=== PATIENT | female | born 1985 | race Two or more races ===

== ENCOUNTER 2025-01-18 22:24 | Inpatient (IN) | payer MEDICAID, OTHER ==
[~2025-01-18] VITALS: Ht 160 cm; Wt 69.6 kg
--- NOTE | 2025-01-18 22:49 | ED.PDOC ---
History of Present Illness HPI Comments This is a 3-year-old, obese female that is brought in by mm for complaint of shortness a breath in chest pain, today. Per EMS report, patient endorses on sudden an unprovoked onset of symptoms 30-40 minutes prior to ED arrival, while taking a shower. She was noted to have been found, initially, heart rate in the 130s on scene in addition to reporting recent hospital discharge on 01/14/2025. Patient admits to a medical history of recent CHF diagnosis with Lasix placement, unspecified "blood clot in [her] heart" with Eliquis placement, current abscess "lump" to right-side of abdomen with antibiotics placement, and anxiety. At time of initial assessment, patient reports additional complaint of bilateral leg swelling amidst medication compliancy and denies any current palpitations, cough, congestion, fever, chills, nausea, vomiting, or other associated symptoms or modifiers at this time. Chief Complaint: Shortness of Breath Time Seen by MD: 22:30 Reviewed Notes: Nurses Notes, Feed Miller Notes, Medications, Allergies Allergies: Coded Allergies: NO KNOWN ALLERGIES (Unverified , 01/18/25) Information Source: Patient, Emergency Med Personnel Mode of Arrival: EMS Severity: Moderate Timing: Minutes Duration: Since onset Prehospital treatment: 12 Lead EKG, Sprayer Insecticide Past Medical History PAST MEDICAL HISTORY: Anxiety, CHF (on Lasix) Past Medical History (Other): obesity, current abscess "lump" to right-side of abdomen - on antibiotics unspecified "blood clot in heart" - on Eliquis Surgical History: Denies all surgeries 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 Hx Family History Family History: Unknown Social History Smoker: Non-Smoker Alcohol: Denies ETOH Use Drugs: Denies Drug Use Lives In: Home All Other Systems: Reviewed and Negative (Comprehensive systems review obtained and negative except for what is stated in the HPI.) Physical Exam General Appearance: No Apparent Distress, Obese HEENT: Normal ENT Inspection, Pharynx Normal, TMs Normal Neck: Full Range of Motion, Non-Tender, Normal, Normal Inspection Respiratory: Chest Non-Tender, Lungs Clear, No Accessory Muscle Use, No Respiratory Distress, Normal Breath Sounds Cardiovascular: No Edema, No JVD, No Murmur, No Gallop, Normal Peripheral Pulses, Regular Rate/Rhythm Breast Exam: Deferred Gastrointestinal: No Organomegaly, Non Tender, No Pulsatile Mass, Normal Bowel Sounds, Soft Genitalia: Deferred Pelvic: Deferred Rectal: Deferred Extremities: Leg edema (1+ pitting edema to bilateral lower extremities ), No calf tenderness, Normal capillary refill, Normal range of motion, Non-tender Musculoskeletal : Apperance: Normal Neurologic: Alert, roaster operator II-XII nml as Tested, No Motor Deficits, Normal Affect, Normal Mood, No Sensory Deficits Cerebellar Function: Normal Reflexes: Normal Skin: Dry, Normal Color, Warm Lymphatic: No Adenopathy Was a procedure done? Was a procedure done?: No EKG EKG : Pulse Rate (adult): 117 [place]: Normal Cardiac Rhythm: ST Block: None Hypertrophy: None ST: Normal Differential Dx Considerations may include: Anxiety, panic attack, URI, viral syndrome, pneumonia, TN, PT, CHF exacerbation X-Ray, Labs, Meds, VS Vital Signs Date Time Temp Pulse Resp B/P (MAP) Pulse Ox O2 Delivery O2 Flow Rate FiO2 01/18/25 22:49 117 01/18/25 22:33 97.8 112 20 143/82 (102) 98 01/18/25 22:28 117 Lab Test 01/18/25 22:41 Range/Units White Blood Count 11.4 H 4.4-10.8 10^3/uL Red Blood Count 3.93 L 4.0-5.20 10^6/uL Hemoglobin 9.4 L 12.2-16.2 g/dL Hematocrit 30.5 L 36.0-46.0 % Mean Corpuscular Volume 77.7 L 80.0-100.0 fL Mean Corpuscular Hemoglobin 24.0 L 28.0-32.0 pg Mean Corpuscular Hemoglobin Concent 30.9 L 32.0-36.0 g/dL Red Cell Distribution Width 22.1 H 11.8-14.3 % Platelet Count 394 140-450 10^3/uL Mean Platelet Volume 8.4 6.9-10.8 fL Neutrophils (%) (Auto) 76.4 37.0-80.0 % Lymphocytes (%) (Auto) 12.9 10.0-50.0 % Monocytes (%) (Auto) 5.0 0.0-12.0 % Eosinophils (%) (Auto) 4.9 0.0-7.0 % Basophils (%) (Auto) 0.8 0.0-2.0 % Neutrophils # (Auto) 8.7 H 1.6-8.6 10 ^3/uL Lymphocytes # (Auto) 1.5 0.4-5.4 10 ^3/uL Monocytes # (Auto) 0.6 0-1.3 10 ^3/uL Eosinophils # (Auto) 0.6 0-0.8 10 ^3/uL Basophils # (Auto) 0.1 0-0.2 10 ^3/uL Nucleated Red Blood Cells 0.2 % Sodium Level 134 L 136-145 mmol/L Potassium Level 5.1 3.5-5.1 mmol/L Chloride Level 102 98-107 mmol/L Carbon Dioxide Level 24 20-31 mmol/L Anion Gap 8 5-15 Blood Urea Nitrogen 30 H 9-23 mg/dL Creatinine 1.02 0.550-1.02 mg/dL Glomerular Filtration Rate Calc 71 >90 mL/min BUN/Creatinine Ratio 29.4 H 10.0-20.0 Serum Glucose 118 H 74-106 mg/dL Calcium Level 9.1 8.7-10.4 mg/dL Troponin I High Sensitivity 157 *H </=34 ng/L B-Type Natriuretic Peptide Pending Time of 1ST Reevaluation: 23:00 Reevaluation 1ST: Unchanged Patient Education/Counseling: Diagnosis, Treatment Family Education/Counseling: No Family Present Additional Information The following tests were ordered, and results were reviewed by me: Troponin, EKG, CXR, CBC, BMP, BNP Additional Information was gathered from interviewing the following independent historians: EMS I reviewed and agreed with the following test results read by other providers: CXR I discussed treatment and results with medical personnel and: patient Departure 1 Departure Time of Disposition: 23:36 (Patient presented with chest pain that was concerning for possible STEMI, ACS, PE, Pneumonia, Muscle Strain, COPD, Dissection. Data: 1. I ordered and reviewed the result of at least 3 labs including a CBC, BMP, and Troponin. 2. I independently interpreted the following tests: EKG which shows _ I saw the via and Chest X-ray which shows cardiomegaly _.Risk:This patient has a high risk of morbidity due to further diagnostic testing or treatment and may suffer from an acute cardiac or respiratory disorder. Workup reveals concern for ACS and CHF exacerbation and patient should be admitted for further workup and possible expert consultation. ) Impression: Primary Impression: Acute chest pain Additional Impressions: Shortness of breath Acute on chronic systolic (congestive) heart failure Disposition: 09 ADMITTED INPATIENT Admit to: Med Surg Condition: Serious Critical Care Note Critical Care Time?: Yes Critical care comment: Acute chest pain Authorized and Performed by: Betty Alcantar MD Total critical care time: Approximately 32 minutes Due to a high probability of clinically significant, life threatening deterioration, the patient required my highest level of preparedness to intervene emergently and I personally spent this critical care time directly and personally managing the patient. This critical care time included obtaining a history; examining the patient; pulse oximetry; ordering and review of studies; arranging urgent treatment with development of a management plan; evaluation of patient's response to treatment; frequent reassessment; and, discussions with other providers. This critical care time was performed to assess and manage the high probability of imminent, life-threatening deterioration that could result in multi-organ failure. It was exclusive of separately billable procedures and treating other patients and teaching time. Please see my other sections and the rest of the note for further information on patient assessment and treatment. Stability Stability form required: No Heart Score Heart Score: Heart Score Response (Comments) Value History Moderate Suspicious 1 EKG Repolarization Disturb 1 Age <45 0 Risk Factors 1 or 2 risk factors 1 Troponin >3 x's Normal limit 2 Total 5 I personally scribed for BETTY ALCANTAR MD ([email or web address]) on 01/18/25 at 22:49. Electronically submitted by Gray Caba ([email or web address]). BETTY ALCANTAR MD Jan 18, 2025 22:49
[2025-01-18 23:04] LABS: Chloride 102 mmol/L (98-107); Eosinophils # (auto) 0.6 10 ^3/uL (0-0.8); Lymphocytes # (auto) 1.5 10 ^3/uL (0.4-5.4); Nucleated Red Blood Cells % 0.2 %; Platelet Count (auto) 394 10^3/uL (140-450); Potassium 5.1 mmol/L (3.5-5.1)
[2025-01-18 23:05] LABS: Anion Gap 8 (5-15); Calcium 9.1 mg/dL (8.7-10.4); Carbon Dioxide 24 mmol/L (20-31)
[2025-01-18 23:06] LABS: Basophils # (auto) 0.1 10 ^3/uL (0-0.2); Basophils % (auto) 0.8 % (0.0-2.0); Eosinophils % (auto) 4.9 % (0.0-7.0); Hematocrit 30.5 % (36.0-46.0); Hemoglobin 9.4 g/dL (12.2-16.2); Lymphocytes % (auto) 12.9 % (10.0-50.0); Mean Corpuscular Hgb Conc. 30.9 g/dL (32.0-36.0); Mean Corpuscular Volume 77.7 fL (80.0-100.0); Monocytes # (auto) 0.6 10 ^3/uL (0-1.3); Neutrophils # (auto) 8.7 10 ^3/uL (1.6-8.6); Neutrophils % (auto) 76.4 % (37.0-80.0); Red Blood Cells 3.93 10^6/uL (4.0-5.20); White Blood Cell 11.4 10^3/uL (4.4-10.8)
[2025-01-18 23:10] LABS: BUN/Creatinine Ratio 29.4 (10.0-20.0)
[2025-01-18 23:12] LABS: Blood Urea Nitrogen 30 mg/dL (9-23); Glucose 118 mg/dL (74-106); Sodium 134 mmol/L (136-145)
[2025-01-18 23:13] LABS: Red Cell Distribution Width 22.1 % (11.8-14.3)
--- NOTE | 2025-01-18 23:23 | DVH ---
CHEST RADIOGRAPH Indication: sob Technique: Single frontal view of the chest was obtained COMPARISON: None FINDINGS: Lines and Tubes: None Lungs: Clear Pleura: No effusion. No pneumothorax. Cardiomediastinal contours: Moderate cardiomegaly. Bones: Unremarkable IMPRESSION: Moderate cardiomegaly. No pulmonary edema.
[2025-01-19] MEDS ORDERED: NITROGLYCERIN 0.4 MG SL TAB SL PRN
[2025-01-19] MEDS ORDERED: MORPHINE SULFATE INJ 2 MG/ml SYRG IV PRN
[2025-01-19] MEDS ORDERED: ACETAMINOPHEN 325 MG TAB PO PRN (00:15)
--- NOTE | 2025-01-19 00:34 | DVHHP2 ---
History of Present Illness Reason for Visit: Shortness for breath History of Present Illness 39-year-old female with a history of congestive heart failure presents for evaluation of shortness for breath. Patient reports a two day history of worsening lower extremity swelling, facial swelling and chest pressure. Denies cough or fever. She reports being compliant with her medications. Other acute complaints reported. Past Medical History Hypertension, congestive heart Past Surgical History Denies Family History Noncontributory Smoke: No ALCOHOL: heavy Drugs: None Lives: with Family Review of Systems Review of Systems Review of systems are currently negative otherwise addressed in HPI. Allergies: Coded Allergies: NO KNOWN ALLERGIES (Unverified , 01/18/25) Medications Current Medications Medications Dose Ordered Sig/Hernán Route Start Time Stop Time Status Last Admin Dose Admin Nitroglycerin 0.4 mg Q5MINP PRN SL 01/19/25 00:00 Morphine Sulfate 2 mg Q30M PRN IV 01/19/25 00:00 Spironolactone 25 mg DAILY PO 01/19/25 10:00 UNV Carvedilol 3.125 mg Q12HR PO 01/19/25 10:00 UNV Furosemide 20 mg BIDD IV 01/19/25 06:00 UNV Empaglifozin 10 mg DAILY PO 01/19/25 10:00 UNV Lisinopril 20 mg BID PO 01/19/25 10:00 UNV Ferrous Sulfate 325 mg BIDWM PO 01/19/25 08:00 UNV Aspirin 162 mg DAILY PO 01/19/25 10:00 UNV Atorvastatin Calcium 10 mg HS PO 01/19/25 22:00 UNV Temazepam 15 mg QHSP PRN PO 01/19/25 00:15 UNV Ondansetron HCl 4 mg Q4HP PRN IV 01/19/25 00:15 UNV Acetaminophen 650 mg Q6HP PRN PO 01/19/25 00:15 UNV Exam Vital Signs Vital Signs Date Time Temp Pulse Resp B/P (MAP) Pulse Ox O2 Delivery O2 Flow Rate FiO2 01/18/25 22:49 117 01/18/25 22:33 97.8 20 143/82 (102) 98 Exam Gen: 39-year-old female in mild distress Skin: Warm, dry, normal color and texture, no rash. HEENT: Normocephalic atraumatic, mucous membranes moist and pink. Neck: Cervical and supraclavicular nodes normal without enlargement, trachea is midline, thyroid gland is normal without masses. Pulmonary: Clear to auscultation and percussion bilaterally. Cardiac: Regular rate and rhythm. No murmur Abdomen: Soft, nontender, nondistended, bowel sounds present all 4 quadrants, no guarding, no rigidity, no organomegaly. Extremities: No cyanosis, clubbing, plus two bilateral pedal edema Neuro: Cranial nerves II through XII grossly intact, normal affect and speech, no focal motor deficits. Labs/Xrays ORDERING PHYSICIAN: BETTY ASCENCIO MD PROCEDURE(s): CXRP - CHEST PORTABLE REASON: sob ORDER NUMBER(s): [id number], ACCESSION NUMBER(s): [id number] CHEST RADIOGRAPH Indication: sob Technique: Single frontal view of the chest was obtained COMPARISON: None FINDINGS: Lines and Tubes: None Lungs: Clear Pleura: No effusion. No pneumothorax. Cardiomediastinal contours: Moderate cardiomegaly. Bones: Unremarkable IMPRESSION: Moderate cardiomegaly. No pulmonary edema. Labs Test 01/18/25 23:38 01/18/25 22:41 Range/Units Troponin I High Sensitivity 148 *H </=34 ng/L White Blood Count 11.4 H 4.4-10.8 10^3/uL Red Blood Count 3.93 L 4.0-5.20 10^6/uL Hemoglobin 9.4 L 12.2-16.2 g/dL Hematocrit 30.5 L 36.0-46.0 % Mean Corpuscular Volume 77.7 L 80.0-100.0 fL Mean Corpuscular Hemoglobin 24.0 L 28.0-32.0 pg Mean Corpuscular Hemoglobin Concent 30.9 L 32.0-36.0 g/dL Red Cell Distribution Width 22.1 H 11.8-14.3 % Platelet Count 394 140-450 10^3/uL Mean Platelet Volume 8.4 6.9-10.8 fL Neutrophils (%) (Auto) 76.4 37.0-80.0 % Lymphocytes (%) (Auto) 12.9 10.0-50.0 % Monocytes (%) (Auto) 5.0 0.0-12.0 % Eosinophils (%) (Auto) 4.9 0.0-7.0 % Basophils (%) (Auto) 0.8 0.0-2.0 % Neutrophils # (Auto) 8.7 H 1.6-8.6 10 ^3/uL Lymphocytes # (Auto) 1.5 0.4-5.4 10 ^3/uL Monocytes # (Auto) 0.6 0-1.3 10 ^3/uL Eosinophils # (Auto) 0.6 0-0.8 10 ^3/uL Basophils # (Auto) 0.1 0-0.2 10 ^3/uL Nucleated Red Blood Cells 0.2 % Sodium Level 134 L 136-145 mmol/L Potassium Level 5.1 3.5-5.1 mmol/L Chloride Level 102 98-107 mmol/L Carbon Dioxide Level 24 20-31 mmol/L Anion Gap 8 5-15 Blood Urea Nitrogen 30 H 9-23 mg/dL Creatinine 1.02 0.550-1.02 mg/dL Glomerular Filtration Rate Calc 71 >90 mL/min BUN/Creatinine Ratio 29.4 H 10.0-20.0 Serum Glucose 118 H 74-106 mg/dL Calcium Level 9.1 8.7-10.4 mg/dL B-Type Natriuretic Peptide > 5000.00 0-100 pg/mL Assessment/Plan Assessment/Plan Assessment Acute on chronic congestive heart failure Hypertension Iron-deficiency anemia Plan Admit the patient to telemetry to the hospitalist Cardiology consultation IV Lasix Resume home medications Continue treatment per orders. Plan discussed with: Patient My Orders Orders - RAFIQ CORRAL AGACNP Procedure Category Date Status Time Admit ADMIT 01/18/25 Transmitted 23:59 Nitroglycerin PHA 01/19/25 In Process Sublingual (Ntrostat 00:00 Morphine Sulfate PHA 01/19/25 In Process Injection 00:00 Stat Ekg For Chest DEJUAN 01/18/25 In Process Pain 23:59 Notify Of Changes DEJUAN 01/18/25 In Process From Base 23:59 Bow Maker Custom For DEJUAN 01/18/25 In Process 24 Hours 23:59 Emergency Dysrhythmia DEJUAN 01/18/25 In Process Protocol 23:59 Rhythm Strips Once DEJUAN 01/18/25 In Process Every Shift 23:59 Oxygen By Nasal RT 01/18/25 Transmitted Cannula 23:59 Spironolactone PHA 01/19/25 Logged (Aldactone) 10:00 Carvedilol Tablet PHA 01/19/25 Logged (Coreg Tablet) 10:00 Furosemide Injection PHA 01/19/25 Logged (Lasix Injection) 06:00 Empagliflozin PHA 01/19/25 Logged (Jardiance) 10:00 Lisinopril Tablet PHA 01/19/25 Logged (Zestril Tablet) 10:00 Ferrous Sulfate Tablet PHA 01/19/25 Logged 08:00 Aspirin Tablet PHA 01/19/25 Logged 10:00 Atorvastatin (Lipitor) PHA 01/19/25 Logged 22:00 Basic Metabolic Panel LAB 01/20/25 Verified 04:00 Temazepam (Restoril) PHA 01/19/25 Logged 00:15 Ondansetron Hcl PHA 01/19/25 Logged (Zofran) 00:15 Complete Blood Count LAB 01/20/25 Verified 04:00 Cardiac DIET 01/19/25 Transmitted Diet-2gna,Lofat,Lochol Breakfast Echo 2d Mode Cardiac US 01/19/25 Logged DOP 00:07 Condition: Fair DEJUAN 01/19/25 In Process 00:07 Acetaminophen Tablet PHA 01/19/25 Logged (Tylenol Tablet) 00:15 Bedrest With Bathroom DEJUAN 01/19/25 In Process Privileg 00:07 * Cardiology Consult CONS 01/19/25 Verified 00:07 Date of Service: Jan 18, 2025 Billing Provider: RAFIQ CORRAL Common Visit Codes: [id number] INP/OBS CARE (HIGH) RAFIQ CORRAL Jan 19, 2025 00:34
[2025-01-19] MEDS: FUROSEMIDE 40 MG/4 ML VIAL IV ONE (02:30)
--- NOTE | 2025-01-19 03:31 | ECG ---
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
[2025-01-19 03:50] VITALS: PULSE 111; RESP 21; O2SAT 99
[2025-01-19] MEDS: FUROSEMIDE 20 MG/2 ML VIAL IV SCH ×2 (06:35→18:06)
[2025-01-19] MEDS: FERROUS SULFATE 325mg EC TAB PO SCH (07:37)
[2025-01-19 08:00] VITALS: PULSE 110; RESP 20; O2SAT 99
[2025-01-19] MEDS: SPIRONOLACTONE 25 MG TAB PO SCH (09:50)
[2025-01-19] MEDS: ASPirin 81 mg TAB PO SCH (09:50)
[2025-01-19] MEDS: CARVEDILOL 3.125 MG TAB PO SCH (09:51)
[2025-01-19] MEDS: EMPAGLIFLOZIN 10 MG TAB PO SCH (09:52)
[2025-01-19] MEDS ORDERED: LISINOPRIL 20 MG TAB PO SCH ×2 (10:00)
--- NOTE | 2025-01-19 10:24 | DVHINCON2 ---
Date Seen: Jan 19, 2025 Referring Physician AD Huang Reason for Consultation CHF History of Present Illness This is a 39-year-old female patient who presents to emergency room with chief complaint of worsening shortness of breath for one day prior to emergency room arrival. Cardiology has been consulted at this time for CHF exacerbation. Initial twelve lead electrocardiogram reveals sinus tachycardia with Q-waves seen in anterior leads and left ventricular hypertrophy. Initial troponin level of 157ng/L with flat trend thereafter. Initial BNP level >5000pg/mL. Significant past medical history includes congestive heart failure, LV thrombus on Eliquis therapy, abscess to her abdomen, and obesity. The patient reports that she was diagnosed with congestive heart failure as well as a "blood clot in her heart" at a facility in [place]. She reports that she never followed up with a blanket maker in the outpatient setting. Past Medical History Past medical history reviewed. No other significant than mentioned above. Past Surgical History x2 Family History Family history reviewed. Social History Denies the use of tobacco, alcohol or illicit drugs. Allergies: Coded Allergies: NO KNOWN ALLERGIES (Unverified , 01/18/25) Home Meds Home medications reviewed. Current Medications Current Medications Medications (Trade) Dose Ordered Sig/Hernán Route PRN Reason Start Time Stop Time Status Last Admin Nitroglycerin (Ntrostat Sublingual) 0.4 mg Q5MINP PRN SL FOR CHEST PAIN 01/19/25 00:00 Morphine Sulfate 2 mg Q30M PRN IV FOR CHEST PAIN 01/19/25 00:00 Spironolactone (Aldactone) 25 mg DAILY PO 01/19/25 10:00 01/19/25 09:50 Carvedilol (Coreg Tablet) 3.125 mg Q12HR PO 01/19/25 10:00 01/19/25 09:51 Furosemide (Lasix Injection) 20 mg BIDD IV 01/19/25 06:00 01/19/25 06:35 Empaglifozin (Jardiance) 10 mg DAILY PO 01/19/25 10:00 01/19/25 09:52 Lisinopril (Zestril Tablet) 20 mg BID PO 01/19/25 10:00 01/19/25 00:40 DC Ferrous Sulfate 325 mg BIDWM PO 01/19/25 08:00 01/19/25 07:37 Aspirin 162 mg DAILY PO 01/19/25 10:00 01/19/25 09:50 Atorvastatin Calcium (Lipitor) 10 mg HS PO 01/19/25 22:00 Temazepam (Restoril) 15 mg QHSP PRN PO FOR INSOMNIA 01/19/25 00:15 Ondansetron HCl (Zofran) 4 mg Q4HP PRN IV NAUSEA / VOMITING 01/19/25 00:15 Acetaminophen (Tylenol Tablet) 650 mg Q6HP PRN PO PAIN SCALE 1-3 OR TEMP>100.4 01/19/25 00:15 Lisinopril (Zestril Tablet) 20 mg BID PO 01/19/25 10:00 UNV Review of Systems Constitutional: No symptom reported Ears, Nose, & Throat: No symptom reported Eyes: No symptom reported Neurological: No symptoms reported Pulmonary/Respiratory: Shortness of breath Cardiovascular: No symptom reported Gastrointestinal: No symptom reported Genitourinary: No symptom reported Musculoskeletal: No symptom reported Skin: No symptom reported Psychiatric: No symptom reported Endocrine: No symptom reported Hematologic/Lymphatic: No symptom reported Vital Signs Vital Signs Date Time Temp Pulse Resp B/P (MAP) Pulse Ox O2 Delivery O2 Flow Rate FiO2 01/19/25 09:51 110 120/93 01/19/25 08:00 98.0 20 99 98.0 01/19/25 08:00 Room Air* 0 21 Physical Exam General Appearance: Cooperative. Well-developed. Well-nourished. No acute distress. Pulmonary/Respiratory: Clear, bilateral breaths sounds. Cardiovascular/Chest: Regular rate and rhythm Peripheral Pulses: 2+ Radial (R). 2+ Radial (L). 2+ Pedal (R). 2+ Pedal (L) Abdominal Exam: Normal bowel sounds. Ankle Exam: 1+ pitting edema Lower extremities: 1+ pitting edema Neuro/Mental Status: A/OX4, coherent. Thoughts/Psych: Normal thought pattern. Appropriate mood and affect. Good judgment and insight. Appearance: No acute distress. Skin Exam: Generalized scabs and discoloration to extremities. Skin warm and dry Labs/Diagnostic Data Labs Test 01/19/25 01:36 01/18/25 22:41 Range/Units Troponin I High Sensitivity 148 *H </=34 ng/L White Blood Count 11.4 H 4.4-10.8 10^3/uL Red Blood Count 3.93 L 4.0-5.20 10^6/uL Hemoglobin 9.4 L 12.2-16.2 g/dL Hematocrit 30.5 L 36.0-46.0 % Mean Corpuscular Volume 77.7 L 80.0-100.0 fL Mean Corpuscular Hemoglobin 24.0 L 28.0-32.0 pg Mean Corpuscular Hemoglobin Concent 30.9 L 32.0-36.0 g/dL Red Cell Distribution Width 22.1 H 11.8-14.3 % Platelet Count 394 140-450 10^3/uL Mean Platelet Volume 8.4 6.9-10.8 fL Neutrophils (%) (Auto) 76.4 37.0-80.0 % Lymphocytes (%) (Auto) 12.9 10.0-50.0 % Monocytes (%) (Auto) 5.0 0.0-12.0 % Eosinophils (%) (Auto) 4.9 0.0-7.0 % Basophils (%) (Auto) 0.8 0.0-2.0 % Neutrophils # (Auto) 8.7 H 1.6-8.6 10 ^3/uL Lymphocytes # (Auto) 1.5 0.4-5.4 10 ^3/uL Monocytes # (Auto) 0.6 0-1.3 10 ^3/uL Eosinophils # (Auto) 0.6 0-0.8 10 ^3/uL Basophils # (Auto) 0.1 0-0.2 10 ^3/uL Nucleated Red Blood Cells 0.2 % Sodium Level 134 L 136-145 mmol/L Potassium Level 5.1 3.5-5.1 mmol/L Chloride Level 102 98-107 mmol/L Carbon Dioxide Level 24 20-31 mmol/L Anion Gap 8 5-15 Blood Urea Nitrogen 30 H 9-23 mg/dL Creatinine 1.02 0.550-1.02 mg/dL Glomerular Filtration Rate Calc 71 >90 mL/min BUN/Creatinine Ratio 29.4 H 10.0-20.0 Serum Glucose 118 H 74-106 mg/dL Calcium Level 9.1 8.7-10.4 mg/dL B-Type Natriuretic Peptide > 5000.00 0-100 pg/mL Assessment Acute on chronic decompensated HFrEF, NYHA class III NSTEMI, likely type II secondary to above LV thrombus on Eliquis therapy Severe mitral and tricuspid valve regurgitation ?Thyroid disease Obesity Medical noncompliance Plan/Recommendation We will continue with the following plan/recommendations (Dr. Castillo): * Echocardiogram reveals EF 10% with LV thrombus noted * Initiate guideline directed medical therapy for CHF as tolerated * LV thrombus: Continue Eliquis therapy * Coumadin indicated per guidelines, continue with Eliquis therapy the patient was previously initiated on. * Strict intake and output, daily weights, maintain fluid restriction * Preload and afterload reduction * Aggressive diuresis as tolerated * Close Cardiac surveillance Case discussed with . The patient denies any previous ischemic workup. The patient should undergo ischemic workup in the outpatient setting. The patient may qualify for ICD placement in the future if she remains on uninterrupted GDMT for 3-6 months without improvement in EF. Patient educated to establish a blanket maker in follow up in the outpatient setting. There is no further inpatient workup indicated at this time. Thank you for allowing us to care for this patient. Please call with any questions or concerns. Critical care time spent: 42 minutes This medical document was created using an electronic medical record system with voice recognition software and computerized dictation system. Although this document has been carefully reviewed, there might still be some phonetic and typographical errors. Occasional wrong-word or ``sound-alike substitutions may have occurred due to the inherent limitations of voice recognition software. These areas are purely typographical due to imperfections of the software programs and do not reflect any compromise in the patient's medical care. Please read the chart carefully and recognize, using context, where these substitutions have occurred. Plan discussed with: Patient NYHA Physical activity limitations: Class3(Marked) ordinary (activity causes symtoms) Date of Service: Jan 19, 2025 Billing Provider: RUDI NEWTON Cardiology Common Codes: [id number] INP/OBS CARE (High) Cardiology Consultation Codes: [id number] CONSULT <45MIN RUDI NEWTON Jan 19, 2025 10:24
[2025-01-19 10:52] LABS: Barbiturate Scree,Urine Neg (NEGATIVE)
[2025-01-19 10:53] LABS: Cannabinoid Screen, Urine Pos (NEGATIVE); Phencyclidine Screen, Urine Neg (NEGATIVE)
[2025-01-19 10:55] LABS: Amphetamine Screen, Urine Neg (NEGATIVE); Benzodiazephine Screen, Urine Neg (NEGATIVE); Cocaine Screen, Urine Neg (NEGATIVE); Opiate Scree,Urine Neg (NEGATIVE)
--- NOTE | 2025-01-19 13:17 | DVHSR ---
APPROVED REPORT EXAM: Two-dimensional and M-mode echocardiogram with Doppler and color Doppler. Blood Pressure: 130/81 mmHg INDICATION EF RISK FACTORS Height: 5' 3", Weight: 184 DIMENSIONS LVDd6.5 (3.8-5.7cm)LA (2D)5.0 (1.9-4.0cm)Aortic Root2.7 (2.0-3.7cm) LVDs6.1 (2.5-4.0cm)LA (MM) (1.9-4.0cm)Aortic Cusp Exc1.6 (1.5-2.0cm) EF (%) 12.0 (55-70%)Rt. Atrium5.1 (1.9-4.0cm)Asc. Aorta2.7 cm IVSd1.0 (0.7-1.1cm)RV (D)3.7 (1.8-2.4cm) PWd1.1 (0.7-1.1cm) Mitral Valve MitralMitral Stenosis E wave2.20m/sMV Mean GR.mmHg E/A ratio0.02D MVAcm2 Aortic Valve Aortic ValveAortic Stenosis V10.60m/Buck Mean GR.5mmHg V21.40m/Buck Peak GR.9mmHg LVOT Diameter2.2 (1.8-2.4cm)Doppler AVA1.63cm2 Pulmonic Valve V20.50m/s Tricuspid Valve TR Velocity3.90m/s [id number] Conclusion severe LV dysfunction LVEF 10% by visual estimate dialted LV marked LV thrombus noted adjacent to LV septum RV dysfunction noted severe mitral regurg severe tricuspid regurg trivial to small pericardial effusion noted biatrial enlargement
[2025-01-19] MEDS: ONDANSETRON HCL 4 MG/2 ML VIAL IV PRN (15:21)
[2025-01-19] MEDS: MORPHINE SULFATE INJ 2 MG/ml SYRG IV PRN (15:22)
[2025-01-19] MEDS: TEMAZEPAM 15 MG CAP PO PRN (20:29)
[2025-01-19 22:06] VITALS: BP 134/90; PULSE 107; RESP 18; RESP 19; TEMP 97.7; O2SAT 100
[2025-01-19 22:21] VITALS: BP 134/90; PULSE 107; PULSE 18; RESP 18; RESP 19; TEMP 97.7; O2SAT 100
[2025-01-19] MEDS: ATORVASTATIN 20 MG TAB PO SCH (22:44)
[2025-01-19] MEDS ORDERED: FURO1TAB31 PO (23:09)
[2025-01-19] MEDS ORDERED: ASPI1TAB20 PO (23:09)
[2025-01-20] VITALS (9 sets, daily range): BP systolic 116–134; BP diastolic 72–94; PULSE 99–116; RESP 18–20; TEMP 97.5–97.8; O2SAT 97–100
[2025-01-20 06:24] LABS: Basophils # (auto) 0.1 10 ^3/uL (0-0.2); Eosinophils # (auto) 0.8 10 ^3/uL (0-0.8); Hemoglobin 8.7 g/dL (12.2-16.2)
[2025-01-20 06:27] LABS: Basophils % (auto) 0.6 % (0.0-2.0); Eosinophils % (auto) 6.8 % (0.0-7.0); Hematocrit 27.9 % (36.0-46.0); Lymphocytes # (auto) 1.8 10 ^3/uL (0.4-5.4); Lymphocytes % (auto) 14.7 % (10.0-50.0); Mean Corpuscular Hemoglobin 24.3 pg (28.0-32.0); Mean Corpuscular Hgb Conc. 31.1 g/dL (32.0-36.0); Mean Corpuscular Volume 78.1 fL (80.0-100.0); Monocytes # (auto) 0.7 10 ^3/uL (0-1.3); Monocytes % (auto) 6.1 % (0.0-12.0); Neutrophils # (auto) 8.5 10 ^3/uL (1.6-8.6); Neutrophils % (auto) 71.8 % (37.0-80.0); Nucleated Red Blood Cells % 0.2 %; Platelet Count (auto) 403 10^3/uL (140-450); Red Blood Cells 3.57 10^6/uL (4.0-5.20); Red Cell Distribution Width 21.5 % (11.8-14.3); White Blood Cell 11.9 10^3/uL (4.4-10.8)
[2025-01-20 06:48] LABS: Chloride 104 mmol/L (98-107)
[2025-01-20 06:49] LABS: Anion Gap 7 (5-15); Calcium 9.4 mg/dL (8.7-10.4); Carbon Dioxide 24 mmol/L (20-31)
[2025-01-20 06:50] LABS: Sodium 135 mmol/L (136-145)
[2025-01-20 06:54] LABS: BUN/Creatinine Ratio 36.4 (10.0-20.0); Glucose 102 mg/dL (74-106)
[2025-01-20 07:06] LABS: Blood Urea Nitrogen 40 mg/dL (9-23)
[2025-01-20] MEDS: ASPirin 81 mg TAB PO SCH (09:12)
--- NOTE | 2025-01-20 09:15 | ECG ---
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
[2025-01-20] MEDS ORDERED: LOSARTAN POTASSIUM 25 MG TAB PO SCH (10:00)
--- NOTE | 2025-01-20 17:53 | DVHPN2 ---
Subjective in bed feeling better Reviewed: Care Plan Changes from previous H/P or p: No Changes Objective Vitals Vital Signs Date Time Temp Pulse Resp B/P (MAP) Pulse Ox O2 Delivery O2 Flow Rate FiO2 01/20/25 17:22 121/83 01/20/25 17:00 97.6 116 20 100 97.6 01/20/25 08:15 Room Air* 0 21 Intake/Output Intake and Output 01/20/25 07:00 Intake Total 120 ml Output Total 600 ml Balance -480 ml Intake Oral 120 ml Output Urine Total 600 ml General Appearance: Alert, Oriented X3 Lungs: Clear to auscultation Cardiovascular: Regular rate, Normal S1, Normal S2 Medications Current Medications Medications Dose Ordered Sig/Hernán Route Start Time Stop Time Status Last Admin Dose Admin Nitroglycerin 0.4 mg Q5MINP PRN SL 01/19/25 00:00 Morphine Sulfate 2 mg Q30M PRN IV 01/19/25 00:00 Carvedilol 3.125 mg Q12HR PO 01/19/25 10:00 01/20/25 09:13 3.125 MG Empaglifozin 10 mg DAILY PO 01/19/25 10:00 01/20/25 09:12 10 MG Ferrous Sulfate 325 mg BIDWM PO 01/19/25 08:00 01/20/25 17:21 325 MG Atorvastatin Calcium 10 mg HS PO 01/19/25 22:00 01/19/25 22:44 10 MG Temazepam 15 mg QHSP PRN PO 01/19/25 00:15 01/19/25 20:29 15 MG Ondansetron HCl 4 mg Q4HP PRN IV 01/19/25 00:15 01/19/25 15:21 4 MG Acetaminophen 650 mg Q6HP PRN PO 01/19/25 00:15 Morphine Sulfate 1 mg Q2HP PRN IV 01/19/25 15:00 01/20/25 16:03 1 MG Furosemide 40 mg BIDD IV 01/19/25 18:00 01/20/25 17:22 40 MG Aspirin 81 mg DAILY PO 01/20/25 10:00 01/20/25 09:12 81 MG Losartan Potassium 25 mg DAILY PO 01/20/25 10:00 Hold Laboratory Results Laboratory Tests 01/20/25 05:53 Chemistry Test 01/20/25 05:53 Calcium Level 9.4 mg/dL (8.7-10.4) Urinalysis Test 01/20/25 00:46 Urine Test Negative (Negative) Microbiology Microbiology Date/Time Source Procedure Growth Status 01/19/25 22:50 Nose MRSA Screen - Final Complete Assessment/Plan Assessment/Plan Acute on chronic congestive heart failure Hypertension Iron-deficiency anemia Continue IV lasix cardiology following daily bmp Plan discussed with: Patient My Orders Orders - IBRAHIMA BATEMAN MD Procedure Category Date Status Time * Surgical Consult CONS 01/20/25 Transmitted Apply/Change Dressing DEJUAN 01/20/25 In Process 10:30 Podiatry Consult CONS 01/20/25 Transmitted 14:32 Date of Service: Jan 20, 2025 Billing Provider: IBRAHIMA BATEMAN MD Common Visit Codes: [id number] INP/OBS CARE(HIGH) IBRAHIMA BATEMAN MD Jan 20, 2025 17:53
[2025-01-21] VITALS (9 sets, daily range): BP systolic 103–131; BP diastolic 76–92; PULSE 87–173; RESP 16–21; TEMP 97.1–97.8; O2SAT 96–100
[2025-01-21 06:51] LABS: Anion Gap 8 (5-15); Carbon Dioxide 24 mmol/L (20-31); Chloride 103 mmol/L (98-107)
[2025-01-21 06:53] LABS: Calcium 9.2 mg/dL (8.7-10.4)
[2025-01-21 06:54] LABS: Glucose 96 mg/dL (74-106); Sodium 135 mmol/L (136-145)
[2025-01-21 06:57] LABS: BUN/Creatinine Ratio 31.8 (10.0-20.0)
[2025-01-21 07:07] LABS: Blood Urea Nitrogen 35 mg/dL (9-23)
[2025-01-21] MEDS: APIXABAN 5 MG TAB PO SCH (10:46)
--- NOTE | 2025-01-21 14:29 | DVHPN2 ---
Subjective in bed feeling better Reviewed: Care Plan Changes from previous H/P or p: No Changes Objective Vitals Vital Signs Date Time Temp Pulse Resp B/P (MAP) Pulse Ox O2 Delivery O2 Flow Rate FiO2 01/21/25 13:31 109 20 121/81 01/21/25 13:00 97.3 99 97.3 01/21/25 08:00 Room Air* 0 21 Intake/Output Intake and Output 01/21/25 07:00 Intake Total 1000 ml Output Total 3650 ml Balance -2650 ml Intake Oral 1000 ml Output Urine Total 3650 ml # Bowel Movements 3 General Appearance: Alert, Oriented X3 Lungs: Clear to auscultation Cardiovascular: Regular rate, Normal S1, Normal S2 Medications Current Medications Medications Dose Ordered Sig/Hernán Route Start Time Stop Time Status Last Admin Dose Admin Nitroglycerin 0.4 mg Q5MINP PRN SL 01/19/25 00:00 Morphine Sulfate 2 mg Q30M PRN IV 01/19/25 00:00 Carvedilol 3.125 mg Q12HR PO 01/19/25 10:00 01/21/25 08:50 3.125 MG Empaglifozin 10 mg DAILY PO 01/19/25 10:00 01/21/25 08:49 10 MG Ferrous Sulfate 325 mg BIDWM PO 01/19/25 08:00 01/21/25 08:49 325 MG Atorvastatin Calcium 10 mg HS PO 01/19/25 22:00 01/20/25 21:09 10 MG Temazepam 15 mg QHSP PRN PO 01/19/25 00:15 01/19/25 20:29 15 MG Ondansetron HCl 4 mg Q4HP PRN IV 01/19/25 00:15 01/19/25 15:21 4 MG Acetaminophen 650 mg Q6HP PRN PO 01/19/25 00:15 Morphine Sulfate 1 mg Q2HP PRN IV 01/19/25 15:00 01/21/25 13:31 1 MG Furosemide 40 mg BIDD IV 01/19/25 18:00 01/21/25 05:28 40 MG Aspirin 81 mg DAILY PO 01/20/25 10:00 01/21/25 08:49 81 MG Losartan Potassium 25 mg DAILY PO 01/20/25 10:00 Hold Apixaban 5 mg BID PO 01/21/25 10:00 01/21/25 10:46 5 MG Laboratory Results Laboratory Tests 01/20/25 05:53 01/21/25 05:56 Chemistry Test 01/21/25 05:56 Calcium Level 9.2 mg/dL (8.7-10.4) Urinalysis Test 01/20/25 00:46 Urine Test Negative (Negative) Microbiology Microbiology Date/Time Source Procedure Growth Status 01/19/25 22:50 Nose MRSA Screen - Final Complete Assessment/Plan Assessment/Plan Acute on chronic congestive heart failure Hypertension Iron-deficiency anemia skin abscess in abdominal area Continue IV lasix cardiology following surgery consult daily bmp Plan discussed with: Patient My Orders Orders - IBRAHIMA BATEMAN MD Procedure Category Date Status Time Podiatry Consult CONS 01/20/25 Transmitted 14:32 Basic Metabolic Panel LAB 01/22/25 Verified 05:00 Basic Metabolic Panel LAB 01/23/25 Verified 05:00 Basic Metabolic Panel LAB 01/24/25 Verified 05:00 Basic Metabolic Panel LAB 01/25/25 Verified 05:00 Basic Metabolic Panel LAB 01/26/25 Verified 05:00 Basic Metabolic Panel LAB 01/27/25 Verified 05:00 Date of Service: Jan 21, 2025 Common Visit Codes: [id number] INP/OBS CARE(HIGH) IBRAHIMA BATEMAN MD Jan 21, 2025 14:29
[2025-01-21] MEDS: dilTIAZem 25 MG/5 ML VIAL IV ONE (23:28)
[2025-01-21] MEDS: CARVEDILOL 12.5 MG TAB PO ONE (23:30)
[2025-01-22] VITALS (8 sets, daily range): BP systolic 101–134; BP diastolic 59–70; PULSE 62–160; RESP 14–19; TEMP 97.3–98.3; O2SAT 92–100
[2025-01-22] MEDS: DIGOXIN (250MCG/ML) 2 ML AMPULE IV ONE (01:32)
[2025-01-22 06:24] LABS: Chloride 100 mmol/L (98-107); Potassium 4.7 mmol/L (3.5-5.1)
[2025-01-22 06:25] LABS: Anion Gap 9 (5-15); Carbon Dioxide 25 mmol/L (20-31)
[2025-01-22 06:26] LABS: Calcium 9.3 mg/dL (8.7-10.4)
[2025-01-22 06:30] LABS: BUN/Creatinine Ratio 29.8 (10.0-20.0); Glucose 102 mg/dL (74-106)
[2025-01-22 06:38] LABS: Blood Urea Nitrogen 34 mg/dL (9-23); Sodium 134 mmol/L (136-145)
[2025-01-22] MEDS: CARVEDILOL 12.5 MG TAB PO SCH (10:39)
--- NOTE | 2025-01-22 12:37 | DVHINCON2 ---
Date of service: Jan 22, 2025 Family History: Diabetes mellitus G8 MOTHER FH: CHF (congestive heart failure) G8 FATHER Hypertension G8 MOTHER Allergies: Coded Allergies: NO KNOWN ALLERGIES (Unverified , 01/18/25) Home Meds Reported Medications Aspirin (Aspir-81) 81 Mg Tab, 1 TAB PO DAILY, #30 TAB 5 Refills 01/19/25 Furosemide (Lasix) 40 Mg Tab, 40 MG PO, TAB 01/19/25 Current Medications Current Medications Medications (Trade) Dose Ordered Sig/Hernán Route PRN Reason Start Time Stop Time Status Last Admin Carvedilol (Coreg Tablet) 12.5 mg Q12HR PO 01/22/25 10:00 01/22/25 10:39 Vital Signs Vital Signs Date Time Temp Pulse Resp B/P (MAP) Pulse Ox O2 Delivery O2 Flow Rate FiO2 01/22/25 10:54 69 18 107/69 01/22/25 09:00 97.3 100 97.3 01/22/25 08:05 Room Air* 0 21 Labs/Diagnostic Data Labs Test 01/22/25 05:56 01/20/25 05:53 01/20/25 00:46 01/19/25 10:24 Range/Units Sodium Level 134 L 136-145 mmol/L Potassium Level 4.7 3.5-5.1 mmol/L Chloride Level 100 98-107 mmol/L Carbon Dioxide Level 25 20-31 mmol/L Anion Gap 9 5-15 Blood Urea Nitrogen 34 H 9-23 mg/dL Creatinine 1.14 H 0.550-1.02 mg/dL Glomerular Filtration Rate Calc 62 >90 mL/min BUN/Creatinine Ratio 29.8 H 10.0-20.0 Serum Glucose 102 74-106 mg/dL Calcium Level 9.3 8.7-10.4 mg/dL White Blood Count 11.9 H 4.4-10.8 10^3/uL Red Blood Count 3.57 L 4.0-5.20 10^6/uL Hemoglobin 8.7 L 12.2-16.2 g/dL Hematocrit 27.9 L 36.0-46.0 % Mean Corpuscular Volume 78.1 L 80.0-100.0 fL Mean Corpuscular Hemoglobin 24.3 L 28.0-32.0 pg Mean Corpuscular Hemoglobin Concent 31.1 L 32.0-36.0 g/dL Red Cell Distribution Width 21.5 H 11.8-14.3 % Platelet Count 403 140-450 10^3/uL Mean Platelet Volume 8.0 6.9-10.8 fL Neutrophils (%) (Auto) 71.8 37.0-80.0 % Lymphocytes (%) (Auto) 14.7 10.0-50.0 % Monocytes (%) (Auto) 6.1 0.0-12.0 % Eosinophils (%) (Auto) 6.8 0.0-7.0 % Basophils (%) (Auto) 0.6 0.0-2.0 % Neutrophils # (Auto) 8.5 1.6-8.6 10 ^3/uL Lymphocytes # (Auto) 1.8 0.4-5.4 10 ^3/uL Monocytes # (Auto) 0.7 0-1.3 10 ^3/uL Eosinophils # (Auto) 0.8 0-0.8 10 ^3/uL Basophils # (Auto) 0.1 0-0.2 10 ^3/uL Nucleated Red Blood Cells 0.2 % Urine Test Negative Negative Hemoglobin A1c 6.3 H <5.7 % A1C Test 01/19/25 08:07 01/19/25 01:36 01/18/25 22:41 Range/Units Urine Opiates Screen Neg NEGATIVE Urine Fentanyl Screen Neg NEGATIVE Urine Barbiturates Screen Neg NEGATIVE Urine Phencyclidine Screen Neg NEGATIVE Urine Amphetamines Screen Neg NEGATIVE Urine Benzodiazepines Screen Neg NEGATIVE Urine Cocaine Screen Neg NEGATIVE Urine Cannabinoids Screen Pos NEGATIVE Magnesium Level 2.0 1.6-2.6 mg/dL Troponin I High Sensitivity 148 *H </=34 ng/L Triglycerides Level 69 < 150 mg/dL Cholesterol Level 102 < 200 mg/dL LDL Cholesterol 76 < 100 mg/dL HDL Cholesterol 20 L 40-59 mg/dL Thyroid Stimulating Hormone (TSH) 8.18 H 0.55-4.78 uIU/mL B-Type Natriuretic Peptide > 5000.00 0-100 pg/mL Microbiology Date/Time Source Procedure Growth Status 01/19/25 22:50 Nose MRSA Screen - Final Complete Assessment [id number] AFEBRILE VSS RLQ ABD WALL ABSCESS I/D AM Plan discussed with: Patient ARIADNA ASHFORD MD Jan 22, 2025 12:37
--- NOTE | 2025-01-22 13:06 | DVHINCON2 ---
DATE OF CONSULTATION: 01/22/2025 HISTORY OF PRESENT ILLNESS: A 39 years old, coming in with shortness of breath, also right lower quadrant abdominal wall swelling, redness. No drainage. No fever or chills. No nausea, vomiting. No constipation, diarrhea. PAST MEDICAL HISTORY: Hypertension, congestive heart failure. PAST SURGICAL HISTORY: x 2. PHYSICAL EXAMINATION: VITAL SIGNS: Afebrile, stable signs. HEENT: With no evidence of pallor, cyanosis, or jaundice. NECK: Supple, nontender with no thyromegaly, lymphadenopathy. CHEST AND LUNGS: Clear. HEART: Within normal limits. ABDOMEN: Soft. She has a swelling in the right lower abdominal wall suggesting abscess formation. The reason for that is not clear. Rest of the abdomen is soft, nontender. NEUROLOGIC: Not assessed. EXTREMITIES: Unremarkable. CLINICAL IMPRESSION: Right lower quadrant abdominal wall abscess. PLAN: Will be to consider incision and drainage of this abscess. Risks and benefits discussed and a consent obtained. MD SILVA Landaverde/THERESA TID: [id number] RECEIPT: [id number] cc: Emre Huang NP
--- NOTE | 2025-01-22 20:10 | DVHPN2 ---
Subjective in bed feeling better Reviewed: Care Plan Changes from previous H/P or p: No Changes Objective Vitals Vital Signs Date Time Temp Pulse Resp B/P (MAP) Pulse Ox O2 Delivery O2 Flow Rate FiO2 01/22/25 17:13 109/68 01/22/25 17:00 97.4 78 18 100 97.4 01/22/25 08:05 Room Air* 0 21 Intake/Output Intake and Output 01/22/25 07:00 Intake Total 2205 ml Output Total 600 ml Balance 1605 ml Intake Oral 2205 ml Output Urine Total 600 ml # Voids 9 # Bowel Movements 4 General Appearance: Alert, Oriented X3 Lungs: Clear to auscultation Cardiovascular: Regular rate, Normal S1, Normal S2 Medications Current Medications Medications Dose Ordered Sig/Hernán Route Start Time Stop Time Status Last Admin Dose Admin Nitroglycerin 0.4 mg Q5MINP PRN SL 01/19/25 00:00 Morphine Sulfate 2 mg Q30M PRN IV 01/19/25 00:00 Empaglifozin 10 mg DAILY PO 01/19/25 10:00 01/22/25 10:38 10 MG Ferrous Sulfate 325 mg BIDWM PO 01/19/25 08:00 01/22/25 17:12 325 MG Atorvastatin Calcium 10 mg HS PO 01/19/25 22:00 01/21/25 22:13 10 MG Temazepam 15 mg QHSP PRN PO 01/19/25 00:15 01/21/25 22:13 15 MG Ondansetron HCl 4 mg Q4HP PRN IV 01/19/25 00:15 01/19/25 15:21 4 MG Acetaminophen 650 mg Q6HP PRN PO 01/19/25 00:15 Morphine Sulfate 1 mg Q2HP PRN IV 01/19/25 15:00 01/22/25 16:28 1 MG Furosemide 40 mg BIDD IV 01/19/25 18:00 01/22/25 17:13 40 MG Aspirin 81 mg DAILY PO 01/20/25 10:00 01/22/25 10:38 81 MG Losartan Potassium 25 mg DAILY PO 01/20/25 10:00 Hold Apixaban 5 mg BID PO 01/21/25 10:00 01/22/25 10:39 5 MG Carvedilol 12.5 mg Q12HR PO 01/22/25 10:00 01/22/25 10:39 12.5 MG Laboratory Results Laboratory Tests 01/20/25 05:53 01/22/25 05:56 Chemistry Test 01/22/25 05:56 Calcium Level 9.3 mg/dL (8.7-10.4) Urinalysis Test 01/20/25 00:46 Urine Test Negative (Negative) Microbiology Microbiology Date/Time Source Procedure Growth Status 01/19/25 22:50 Nose MRSA Screen - Final Complete Assessment/Plan Assessment/Plan Acute on chronic congestive heart failure Hypertension Iron-deficiency anemia skin abscess in abdominal area Continue IV lasix cardiology following surgery consult for skin abscess, going for drainage tomorrow 01/23 daily bmp Disposition: Discharge tomorrow Plan discussed with: Patient My Orders Orders - IBRAHIMA BATEMAN MD Procedure Category Date Status Time * Surgical Consult CONS 01/22/25 Transmitted 11:10 Date of Service: Jan 22, 2025 Billing Provider: IBRAHIMA BATEMAN MD Common Visit Codes: [id number] INP/OBS CARE(HIGH) IBRAHIMA BATEMAN MD Jan 22, 2025 20:10
[2025-01-23] VITALS (7 sets, daily range): BP systolic 107–120; BP diastolic 66–80; PULSE 72–82; RESP 14–18; TEMP 97.3–98; O2SAT 95–100
[2025-01-23 06:47] LABS: Anion Gap 10 (5-15); Carbon Dioxide 25 mmol/L (20-31); Chloride 99 mmol/L (98-107); Potassium 4.1 mmol/L (3.5-5.1)
[2025-01-23 06:48] LABS: Calcium 9.4 mg/dL (8.7-10.4)
[2025-01-23 06:52] LABS: Sodium 134 mmol/L (136-145)
[2025-01-23 06:53] LABS: BUN/Creatinine Ratio 25.8 (10.0-20.0); Glucose 94 mg/dL (74-106)
[2025-01-23 06:56] LABS: Blood Urea Nitrogen 32 mg/dL (9-23)
[2025-01-23] MEDS: FUROSEMIDE 20 MG TAB PO SCH (10:00)
--- NOTE | 2025-01-23 10:54 | DVHPN2 ---
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 General Appearance: Alert, Oriented X3, Cooperative HEENT: Atraumatic Lungs: Clear to auscultation, Normal air movement Cardiovascular: Regular rate, Normal S1, Normal S2 Abdomen: Normal bowel sounds, Soft, No tenderness, Other (Necrotic abdominal wall lesion) Neuro: Normal speech, Cranial nerves 3-12 NL Psych/Mental Status: Mental status NL, Mood NL Medications Current Medications Medications Dose Ordered Sig/Hernán Route Start Time Stop Time Status Last Admin Dose Admin Nitroglycerin 0.4 mg Q5MINP PRN SL 01/19/25 00:00 Morphine Sulfate 2 mg Q30M PRN IV 01/19/25 00:00 Empaglifozin 10 mg DAILY PO 01/19/25 10:00 01/22/25 10:38 10 MG Ferrous Sulfate 325 mg BIDWM PO 01/19/25 08:00 01/22/25 17:12 325 MG Atorvastatin Calcium 10 mg HS PO 01/19/25 22:00 01/22/25 23:27 10 MG Temazepam 15 mg QHSP PRN PO 01/19/25 00:15 01/23/25 02:22 15 MG Ondansetron HCl 4 mg Q4HP PRN IV 01/19/25 00:15 01/19/25 15:21 4 MG Acetaminophen 650 mg Q6HP PRN PO 01/19/25 00:15 Morphine Sulfate 1 mg Q2HP PRN IV 01/19/25 15:00 01/23/25 05:41 1 MG Aspirin 81 mg DAILY PO 01/20/25 10:00 01/22/25 10:38 81 MG Losartan Potassium 25 mg DAILY PO 01/20/25 10:00 Hold Apixaban 5 mg BID PO 01/21/25 10:00 01/22/25 23:26 5 MG Carvedilol 12.5 mg Q12HR PO 01/22/25 10:00 01/22/25 23:27 12.5 MG Furosemide 20 mg DAILY PO 01/23/25 10:00 Laboratory Results Laboratory Tests 01/20/25 05:53 01/23/25 06:07 Chemistry Test 01/23/25 06:07 Calcium Level 9.4 mg/dL (8.7-10.4) Urinalysis Test 01/20/25 00:46 Urine Test Negative (Negative) Microbiology Microbiology Date/Time Source Procedure Growth Status 01/19/25 22:50 Nose MRSA Screen - Final Complete Labs and/or images reviewed: Labs reviewed by me, Image(s) reviewed by me Assessment/Plan Assessment/Plan Covering: #Sepsis with leukocytosis due to abdominal wall abscess; continue IV antibiotics; surgery is planned for today; continue monitoring #Acute on chronic diastolic heart failure; continue diuresis; continue monitoring #NSTEMI; most likely type 2 CO; demand ischemia due to above; telemetry; continue aspirin and statin; continue monitoring #Hypertensive kidney heart disease with heart failure; continue and adjust antihypertensive medications; stable renal function; continue monitoring #Iron-deficiency anemia; continue oral iron; no signs/symptoms of active bleeding; continue monitoring #Marijuana use disorder; counseled on cessation for 17 minutes; continue monitoring #Elevated TSH; most likely subclinical hypothyroidism; to repeat thyroid function test as outpatient; continue monitoring #Low HDL; on statin; continue monitoring Goals of care discussed with the patient for 20 minutes; full code Late Entry. This medical document was created using an electronic medical record system with computerized dictation system. Although this document has been carefully reviewed, there might still be some phonetic and typographical errors. These areas are purely typographical due to imperfections of the software programs, and do not reflect any compromise in the patient's medical care. Plan discussed with: Patient, Other (Nurse) My Orders Orders - EMILY ALCOCER MD Procedure Category Date Status Time Complete Blood Count LAB 01/23/25 Transmitted 10:52 Date of Service: Jan 23, 2025 Billing Provider: EMILY ALCOCER MD Common Visit Codes: [id number] INP/OBS CARE(HIGH) Secondary Visit Codes: [id number] CHNG SMOKING >10MIN (Counseled marijuana use cessation for 17 minutes), [id number] CARE PLAN 30 MINUTES (20 minutes) EMILY ALCOCER MD Jan 23, 2025 10:54
[2025-01-23 11:13] LABS: Basophils # (auto) 0.1 10 ^3/uL (0-0.2); Basophils % (auto) 0.5 % (0.0-2.0); Eosinophils # (auto) 0.9 10 ^3/uL (0-0.8); Eosinophils % (auto) 8.1 % (0.0-7.0); Hematocrit 29.2 % (36.0-46.0); Lymphocytes # (auto) 1.7 10 ^3/uL (0.4-5.4); Lymphocytes % (auto) 15.1 % (10.0-50.0); Mean Corpuscular Hemoglobin 24.5 pg (28.0-32.0); Mean Corpuscular Hgb Conc. 30.9 g/dL (32.0-36.0); Mean Corpuscular Volume 79.5 fL (80.0-100.0); Monocytes # (auto) 0.7 10 ^3/uL (0-1.3); Monocytes % (auto) 6.4 % (0.0-12.0); Neutrophils % (auto) 69.9 % (37.0-80.0); Nucleated Red Blood Cells % 0.5 %; Platelet Count (auto) 452 10^3/uL (140-450); Red Blood Cells 3.67 10^6/uL (4.0-5.20); Red Cell Distribution Width 21.4 % (11.8-14.3); White Blood Cell 11.5 10^3/uL (4.4-10.8)
[2025-01-23] MEDS ORDERED: PROPOFOL 10 MG/ML 20 ML IV ONE (15:37)
[2025-01-23] MEDS ORDERED: MIDAZOLAM HCL 2MG/2ML 2ml VIAL (1mg/ml) ONE (15:37)
[2025-01-23] MEDS ORDERED: fentaNYL CITRATE 100 MCG/2 ML VL ONE (15:55)
[2025-01-23] MEDS ORDERED: ONDANSETRON HCL 4 MG/2 ML VIAL ONE (15:58)
[2025-01-23] MEDS ORDERED: GLYCOPYRROLATE 0.2 MG/ML 1ML VIAL ONE (15:58)
[2025-01-23] MEDS ORDERED: ceFAZolin 1GM VL ONE (15:58)
--- NOTE | 2025-01-23 17:01 | DVHOP2 ---
Operative Report 700 INCISION AND DRAINAGE RLQ ABD WALL ABSCESS C/S SENT IODOFORM PACKING GAUZE PLACED DRESSING DONE EBL 5 CC NO COMPLICATIONS ARIADNA ASHFORD MD Jan 23, 2025 17:01
--- NOTE | 2025-01-23 17:09 | DVHOP ---
DATE OF SURGERY: 01/23/2025 PREOPERATIVE DIAGNOSIS: Left lower quadrant abdominal wall abscess. POSTOPERATIVE DIAGNOSIS: Left lower quadrant abdominal wall abscess. PROCEDURE: I and D of this abscess. SURGEON: Yakov Meza MD SR. CONSULTANT: None. ANESTHESIA: IV sedation. DRAIN: One packing gauze was used. COMPLICATIONS: No complications. DESCRIPTION OF PROCEDURE: The patient was prepped and draped in the usual sterile fashion in the supine position with the right lower quadrant area exposed and an incision was applied on the upper portion of this abscess and taken down to the deeper tissues. The pus was drained out. Cultures were sent. Irrigation performed and hemostasis was secured. Iodoform packing gauze was applied. Dressing was applied. The patient tolerated the procedure well and was taken back to recovery room in stable condition. MD SILVA Landaverde/FREEDOM TID: [id number] RECEIPT: [id number]
[2025-01-24] VITALS (9 sets, daily range): BP systolic 94–123; BP diastolic 59–75; PULSE 61–87; RESP 18–20; TEMP 97.4–98.1; O2SAT 95–100
[2025-01-24] MEDS: LIDOCAINE 1% HCL (LOCAL ANESTH.) INJ 20ML MDV ONE (00:28)
[2025-01-24] MEDS: ceFAZolin 2 GM/D5W100ml 100 ML IV ONE (00:28)
[2025-01-24] MEDS: BUPIVACAINE 0.5% P/F INJ 10 ML VIAL ONE (00:28)
[2025-01-24 06:44] LABS: Alanine Aminotransferase 13 U/L (7-40); Alkaline Phosphatase 92 U/L (46-116); Anion Gap 8 (5-15); Aspartate Aminotransferase 18 U/L (13-40); BUN/Creatinine Ratio 24.8 (10.0-20.0); Calcium 9.1 mg/dL (8.7-10.4); Carbon Dioxide 25 mmol/L (20-31); Chloride 102 mmol/L (98-107); Glucose 105 mg/dL (74-106); Potassium 4.3 mmol/L (3.5-5.1); Total Protein 6.7 g/dL (5.7-8.2)
[2025-01-24 06:45] LABS: Basophils # (auto) 0.1 10 ^3/uL (0-0.2); Bilirubin, Total 0.5 mg/dL (0.2-1.0); Hemoglobin 8.7 g/dL (12.2-16.2); Lymphocytes # (auto) 1.4 10 ^3/uL (0.4-5.4); Monocytes # (auto) 0.9 10 ^3/uL (0-1.3); Nucleated Red Blood Cells % 0.2 %
[2025-01-24 06:49] LABS: Basophils % (auto) 0.7 % (0.0-2.0); Eosinophils # (auto) 0.9 10 ^3/uL (0-0.8); Eosinophils % (auto) 7.9 % (0.0-7.0); Hematocrit 27.1 % (36.0-46.0); Lymphocytes % (auto) 12.5 % (10.0-50.0); Mean Corpuscular Hemoglobin 25.6 pg (28.0-32.0); Monocytes % (auto) 8.1 % (0.0-12.0); Neutrophils % (auto) 70.8 % (37.0-80.0); Platelet Count (auto) 466 10^3/uL (140-450); Red Blood Cells 3.39 10^6/uL (4.0-5.20); Red Cell Distribution Width 21.9 % (11.8-14.3); White Blood Cell 11.2 10^3/uL (4.4-10.8)
[2025-01-24 06:50] LABS: Albumin 3.2 g/dL (3.2-4.8); Blood Urea Nitrogen 29 mg/dL (9-23); Sodium 135 mmol/L (136-145)
--- NOTE | 2025-01-24 09:14 | CONS ---
Pharmacy Clinical Information: CQM HF (missing ACEI/ARB/ARNI, MRA, SGLT2). Patient is currently on Empaglif lozin (SGLT2). Additionally, patient's potassium was elevated upon admission and losartan (ARB) was put on hold. Please consider restarting losartan and initiating an MRA once patient's potassium levels are stable at the discretion of the cardiology team. IRAM RODAS PHARMACIST Jan 24, 2025 09:14
--- NOTE | 2025-01-24 09:16 | DVHPN2 ---
Progress Note Date Seen: Jan 24, 2025 Medical Necessity Reason Pt with a Central, PICC or Fol: No Objective vital signs Vital Sign Date Time Temp Pulse Resp B/P (MAP) Pulse Ox O2 Delivery O2 Flow Rate FiO2 01/24/25 05:00 97.4 71 20 102/62 (75) 95 97.4 01/23/25 20:00 Room Air* 0 21 Total Intake and Output 01/23/25 01/23/25 01/24/25 15:00 23:00 07:00 Intake Total 300 ml 0 ml 800 ml Balance 300 ml 0 ml 800 ml medications Current Medications Medications Dose Ordered Sig/Hernán Route Start Time Stop Time Status Last Admin Dose Admin Nitroglycerin 0.4 mg Q5MINP PRN SL 01/19/25 00:00 Morphine Sulfate 2 mg Q30M PRN IV 01/19/25 00:00 Empaglifozin 10 mg DAILY PO 01/19/25 10:00 01/22/25 10:38 10 MG Ferrous Sulfate 325 mg BIDWM PO 01/19/25 08:00 01/23/25 18:25 325 MG Atorvastatin Calcium 10 mg HS PO 01/19/25 22:00 01/23/25 22:44 10 MG Temazepam 15 mg QHSP PRN PO 01/19/25 00:15 01/23/25 23:12 15 MG Ondansetron HCl 4 mg Q4HP PRN IV 01/19/25 00:15 01/19/25 15:21 4 MG Acetaminophen 650 mg Q6HP PRN PO 01/19/25 00:15 Morphine Sulfate 1 mg Q2HP PRN IV 01/19/25 15:00 01/24/25 00:48 1 MG Aspirin 81 mg DAILY PO 01/20/25 10:00 01/22/25 10:38 81 MG Losartan Potassium 25 mg DAILY PO 01/20/25 10:00 Hold Apixaban 5 mg BID PO 01/21/25 10:00 01/23/25 22:44 5 MG Carvedilol 12.5 mg Q12HR PO 01/22/25 10:00 01/23/25 22:44 12.5 MG Furosemide 20 mg DAILY PO 01/23/25 10:00 laboratory and microbiology Laboratory Tests 01/24/25 05:59 Test 01/24/25 05:59 Range/Units Serum Glucose 105 74-106 mg/dL Microbiology Date/Time Source Procedure Growth Status 01/19/25 22:50 Nose MRSA Screen - Final Complete Problem List/Assessment/Plan Problem List/Assessment/Plan AFEBRILE VSS ABD SOFT DRESSING IN PLACE DC PACKING AM S/P ID RLQ ABD WALL ABSCESS Plan discussed with: Patient My Orders My Orders Orders - ARIADNA ASHFORD MD Procedure Category Date Status Time Anaerobic Culture KARYN 01/23/25 In Process 17:04 Routine Bacterial KARYN 01/23/25 In Process Culture 17:04 Gram Stain KARYN 01/23/25 In Process 17:04 Dietary Evaluation Review Recommendations by RD: Dietary education by RD Comments: 1) Add 60g CCHO restriction to cardiac diet order d/t prediabetes 2) Refer patient to outpatient RD/CDCES for prediabtes education and weight management 3) Continue iron supplementation and diuretic therapy as necessary Expected Outcomes/Goals: 1) appetite and labs to improve 2) f/u in 5 days ARIADNA ASHFORD MD Jan 24, 2025 09:16
--- NOTE | 2025-01-24 13:28 | DVHPN2 ---
Subjective Seen and examined at bedside, s/p I&D. Downgrade to HyprKey. Possible DC in AM. Reviewed: Care Plan, H&P, Labs, Medications, Previous Orders, Radiology, Other (Consultation) Changes from previous H/P or p: No Changes Objective Vitals Vital Signs Date Time Temp Pulse Resp B/P (MAP) Pulse Ox O2 Delivery O2 Flow Rate FiO2 01/24/25 10:16 97 109/72 01/24/25 10:01 18 01/24/25 09:00 97.5 99 97.5 01/24/25 08:10 Room Air* 0 21 Intake/Output Intake and Output 01/24/25 07:00 Intake Total 1100 ml Balance 1100 ml Intake Oral 1100 ml # Voids 7 General Appearance: Alert, Oriented X3, Cooperative HEENT: Atraumatic Lungs: Clear to auscultation, Normal air movement Cardiovascular: Regular rate, Normal S1, Normal S2 Abdomen: Normal bowel sounds, Soft, No tenderness, Other (Right lower quadrant abdominal wall dressing) Neuro: Normal speech, Cranial nerves 3-12 NL Psych/Mental Status: Mental status NL, Mood NL Medications Current Medications Medications Dose Ordered Sig/Hernán Route Start Time Stop Time Status Last Admin Dose Admin Nitroglycerin 0.4 mg Q5MINP PRN SL 01/19/25 00:00 Morphine Sulfate 2 mg Q30M PRN IV 01/19/25 00:00 Empaglifozin 10 mg DAILY PO 01/19/25 10:00 01/24/25 09:15 10 MG Ferrous Sulfate 325 mg BIDWM PO 01/19/25 08:00 01/24/25 09:15 325 MG Atorvastatin Calcium 10 mg HS PO 01/19/25 22:00 01/23/25 22:44 10 MG Temazepam 15 mg QHSP PRN PO 01/19/25 00:15 01/23/25 23:12 15 MG Ondansetron HCl 4 mg Q4HP PRN IV 01/19/25 00:15 01/19/25 15:21 4 MG Acetaminophen 650 mg Q6HP PRN PO 01/19/25 00:15 Morphine Sulfate 1 mg Q2HP PRN IV 01/19/25 15:00 01/24/25 09:31 1 MG Aspirin 81 mg DAILY PO 01/20/25 10:00 01/24/25 09:15 81 MG Losartan Potassium 25 mg DAILY PO 01/20/25 10:00 Hold Apixaban 5 mg BID PO 01/21/25 10:00 01/24/25 09:15 5 MG Carvedilol 12.5 mg Q12HR PO 01/22/25 10:00 01/24/25 09:16 12.5 MG Furosemide 20 mg DAILY PO 01/23/25 10:00 01/24/25 09:16 20 MG Laboratory Results Laboratory Tests 01/24/25 05:59 Chemistry Test 01/24/25 05:59 Albumin 3.2 g/dL (3.2-4.8) Calcium Level 9.1 mg/dL (8.7-10.4) Total Protein 6.7 g/dL (5.7-8.2) LFT Test 01/24/25 05:59 Alanine Aminotransferase (ALT) 13 U/L (7-40) Alkaline Phosphatase 92 U/L (46-116) Aspartate Amino Transferase (AST) 18 U/L (13-40) Total Bilirubin 0.5 mg/dL (0.2-1.0) Urinalysis Test 01/20/25 00:46 Urine Test Negative (Negative) Microbiology Microbiology Date/Time Source Procedure Growth Status 01/23/25 16:52 Abdomen Gram Stain Pending Resulted 01/23/25 16:52 Abdomen Anaerobic Culture - Preliminary Resulted 01/23/25 16:52 Abdomen Aerobic Culture - Preliminary Resulted Assessment/Plan Assessment/Plan #Sepsis with leukocytosis due to abdominal wall abscess; continue IV antibiotics; surgery is planned for today; continue monitoring #Acute on chronic diastolic heart failure; continue diuresis; continue monitoring #NSTEMI; most likely type 2 [place]; demand ischemia due to above; telemetry; continue aspirin and statin; continue monitoring #Hypertensive kidney heart disease with heart failure; continue and adjust antihypertensive medications; stable renal function; continue monitoring #Iron-deficiency anemia; continue oral iron; no signs/symptoms of active bleeding; continue monitoring #Marijuana use disorder; counseled on cessation for 17 minutes; continue monitoring #Elevated TSH; most likely subclinical hypothyroidism; to repeat thyroid function test as outpatient; continue monitoring #Low HDL; on statin; continue monitoring Plan discussed with: Patient My Orders Orders - AGUSTIN LE MD Procedure Category Date Status Time Discontinue Tele DEJUAN 01/24/25 Transmitted 13:24 Zosyn Extended PHA 01/24/25 Transmitted Infusion 18:00 Vancomycin Per PHA 01/24/25 Transmitted Pharmacy 13:30 Basic Metabolic Panel LAB 01/25/25 Verified 04:00 Complete Blood Count LAB 01/25/25 Verified 04:00 Date of Service: Jan 24, 2025 Billing Provider: AGUSTIN LE MD Common Visit Codes: [id number] INP/OBS CARE(HIGH) AGUSTIN LE MD Jan 24, 2025 13:27
[2025-01-24] MEDS ORDERED: VANCOMYCIN PER PHARMACY 0 MG IV SCH (13:30)
[2025-01-24] MEDS: PIPERACILLIN-TAZO 4.5GM 100 ML IV ONE (18:55)
[2025-01-24] MEDS: VANCOMYCIN 1.5GM/300ML 300 ML IV ONE (21:37)
--- NOTE | 2025-01-24 22:47 | ECG ---
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
[2025-01-24] MEDS: LABETALOL HCL 20 MG/4 ML VL IV ONE (23:15)
[2025-01-25] MEDS: PIPERACILLIN-TAZO 4.5GM 100 ML IV SCH (02:26)
[2025-01-25 05:00] VITALS: BP 121/70; PULSE 71; RESP 20; TEMP 97.3; O2SAT 96
[2025-01-25 06:40] LABS: Basophils # (auto) 0.1 10 ^3/uL (0-0.2); Monocytes # (auto) 0.7 10 ^3/uL (0-1.3); Nucleated Red Blood Cells % 0.1 %; Red Blood Cells 3.35 10^6/uL (4.0-5.20)
[2025-01-25 06:42] LABS: Basophils % (auto) 0.6 % (0.0-2.0); Eosinophils # (auto) 0.9 10 ^3/uL (0-0.8); Eosinophils % (auto) 9.4 % (0.0-7.0); Hematocrit 28.1 % (36.0-46.0); Hemoglobin 8.4 g/dL (12.2-16.2); Lymphocytes # (auto) 1.6 10 ^3/uL (0.4-5.4); Lymphocytes % (auto) 16.1 % (10.0-50.0); Mean Corpuscular Hemoglobin 25.1 pg (28.0-32.0); Mean Corpuscular Hgb Conc. 29.9 g/dL (32.0-36.0); Mean Corpuscular Volume 83.9 fL (80.0-100.0); Monocytes % (auto) 6.9 % (0.0-12.0); Neutrophils # (auto) 6.7 10 ^3/uL (1.6-8.6); Platelet Count (auto) 423 10^3/uL (140-450); White Blood Cell 9.9 10^3/uL (4.4-10.8)
[2025-01-25 06:56] LABS: Anion Gap 8 (5-15); Carbon Dioxide 22 mmol/L (20-31); Chloride 105 mmol/L (98-107); Potassium 4.5 mmol/L (3.5-5.1); Sodium 135 mmol/L (136-145)
[2025-01-25 06:57] LABS: Calcium 8.7 mg/dL (8.7-10.4)
[2025-01-25 07:01] LABS: Red Cell Distribution Width 23.2 % (11.8-14.3)
[2025-01-25 07:02] LABS: BUN/Creatinine Ratio 21.9 (10.0-20.0)
[2025-01-25 07:06] LABS: Blood Urea Nitrogen 25 mg/dL (9-23); Glucose 116 mg/dL (74-106)
[2025-01-25 08:00] VITALS: PULSE 70; PULSE 87; O2SAT 99
[2025-01-25 09:00] VITALS: BP 111/74; PULSE 96; RESP 18; TEMP 97.8; O2SAT 98
[2025-01-25 13:00] VITALS: BP 113/75; PULSE 71; RESP 18; TEMP 97.9; O2SAT 96
[2025-01-25] MEDS ORDERED: AUG875T PO (13:38)
[2025-01-25] MEDS ORDERED: APIX5TAB PO (13:43)
[2025-01-25] MEDS ORDERED: CARV-216 PO (13:43)
[2025-01-25] MEDS ORDERED: LOS25T PO (13:43)
--- NOTE | 2025-01-25 13:43 | DVHDS2 ---
Discharge Summary Date of Admission Jan 18, 2025 at 23:59 Date of Discharge: Jan 25, 2025 Admitting Diagnosis Left lower quadrant abdominal wall abscess Labs/Diagnostic Data: Laboratory Results Test 01/25/25 05:46 01/24/25 05:59 01/20/25 00:46 01/19/25 10:24 White Blood Count 9.9 10^3/uL (4.4-10.8) Red Blood Count 3.35 10^6/uL (4.0-5.20) Hemoglobin 8.4 g/dL (12.2-16.2) Hematocrit 28.1 % (36.0-46.0) Mean Corpuscular Volume 83.9 fL (80.0-100.0) Mean Corpuscular Hemoglobin 25.1 pg (28.0-32.0) Mean Corpuscular Hemoglobin Concent 29.9 g/dL (32.0-36.0) Red Cell Distribution Width 23.2 % (11.8-14.3) Platelet Count 423 10^3/uL (140-450) Mean Platelet Volume 8.1 fL (6.9-10.8) Neutrophils (%) (Auto) 67.0 % (37.0-80.0) Lymphocytes (%) (Auto) 16.1 % (10.0-50.0) Monocytes (%) (Auto) 6.9 % (0.0-12.0) Eosinophils (%) (Auto) 9.4 % (0.0-7.0) Basophils (%) (Auto) 0.6 % (0.0-2.0) Neutrophils # (Auto) 6.7 10 ^3/uL (1.6-8.6) Lymphocytes # (Auto) 1.6 10 ^3/uL (0.4-5.4) Monocytes # (Auto) 0.7 10 ^3/uL (0-1.3) Eosinophils # (Auto) 0.9 10 ^3/uL (0-0.8) Basophils # (Auto) 0.1 10 ^3/uL (0-0.2) Nucleated Red Blood Cells 0.1 % Sodium Level 135 mmol/L (136-145) Potassium Level 4.5 mmol/L (3.5-5.1) Chloride Level 105 mmol/L (98-107) Carbon Dioxide Level 22 mmol/L (20-31) Anion Gap 8 (5-15) Blood Urea Nitrogen 25 mg/dL (9-23) Creatinine 1.14 mg/dL (0.550-1.02) Glomerular Filtration Rate Calc 62 mL/min (>90) BUN/Creatinine Ratio 21.9 (10.0-20.0) Serum Glucose 116 mg/dL (74-106) Calcium Level 8.7 mg/dL (8.7-10.4) Random Vancomycin Level 17.8 ug/mL (5-10) Total Bilirubin 0.5 mg/dL (0.2-1.0) Aspartate Amino Transferase (AST) 18 U/L (13-40) Alanine Aminotransferase (ALT) 13 U/L (7-40) Alkaline Phosphatase 92 U/L (46-116) Total Protein 6.7 g/dL (5.7-8.2) Albumin 3.2 g/dL (3.2-4.8) Urine Test Negative (Negative) Hemoglobin A1c 6.3 % A1C (<5.7) Test 01/19/25 08:07 01/19/25 01:36 01/18/25 22:41 Urine Opiates Screen Neg (NEGATIVE) Urine Fentanyl Screen Neg (NEGATIVE) Urine Barbiturates Screen Neg (NEGATIVE) Urine Phencyclidine Screen Neg (NEGATIVE) Urine Amphetamines Screen Neg (NEGATIVE) Urine Benzodiazepines Screen Neg (NEGATIVE) Urine Cocaine Screen Neg (NEGATIVE) Urine Cannabinoids Screen Pos (NEGATIVE) Magnesium Level 2.0 mg/dL (1.6-2.6) Troponin I High Sensitivity 148 ng/L (</=34) Triglycerides Level 69 mg/dL (< 150) Cholesterol Level 102 mg/dL (< 200) LDL Cholesterol 76 mg/dL (< 100) HDL Cholesterol 20 mg/dL (40-59) Thyroid Stimulating Hormone (TSH) 8.18 uIU/mL (0.55-4.78) B-Type Natriuretic Peptide > 5000.00 pg/mL (0-100) Other Laboratory Tests 01/25/25 05:46 Brief Hx & Hospital Course: This is a 39-year-old female patient who presents to emergency room with chief complaint of worsening shortness of breath for one day prior to emergency room arrival. Cardiology has been consulted at this time for CHF exacerbation. Initial twelve lead electrocardiogram reveals sinus tachycardia with Q-waves seen in anterior leads and left ventricular hypertrophy. Initial troponin level of 157ng/L with flat trend thereafter. Initial BNP level >5000pg/mL. Significant past medical history includes congestive heart failure, LV thrombus on Eliquis therapy, abscess to her abdomen, and obesity. The patient reports that she was diagnosed with congestive heart failure as well as a "blood clot in her heart" at a facility in [place]. She reports that she never followed up with a dry wall nailer in the outpatient setting. Patient underwent I&D to the abdominal wall abscess, see operative report below. Patient needs to continue her heart medications at home and start Augmentin at home. Patient will need to followup with surgical clinic in 1 week. Patient advised to do wound care at home and supplies given to the patient. Overall very poor prognosis. Operations or Procedures APPROVED REPORT EXAM: Two-dimensional and M-mode echocardiogram with Doppler and color Doppler. Blood Pressure: 130/81 mmHg INDICATION EF RISK FACTORS Height: 5' 3", Weight: 184 DIMENSIONS LVDd 6.5 (3.8-5.7cm) LA (2D) 5.0 (1.9-4.0cm) Aortic Root 2.7 (2.0- 3.7cm) LVDs 6.1 (2.5-4.0cm) LA (MM) (1.9-4.0cm) Aortic Cusp Exc 1.6 (1.5- 2.0cm) EF (%) 12.0 (55-70%) Rt. Atrium 5.1 (1.9-4.0cm) Asc. Aorta 2.7 cm IVSd 1.0 (0.7-1.1cm) RV (D) 3.7 (1.8-2.4cm) PWd 1.1 (0.7-1.1cm) Mitral Valve Mitral Mitral Stenosis E wave 2.20m/s MV Mean GR. mmHg E/A ratio 0.0 2D MVA cm2 Aortic Valve Aortic Valve Aortic Stenosis V1 0.60m/s AO Mean GR. 5mmHg V2 1.40m/s AO Peak GR. 9mmHg LVOT Diameter 2.2 (1.8-2.4cm) Doppler SANYA 1.63cm2 Pulmonic Valve V2 0.50m/s Tricuspid Valve TR Velocity 3.90m/s RVSP 76mmHg Conclusion severe LV dysfunction LVEF 10% by visual estimate dialted LV marked LV thrombus noted adjacent to LV septum RV dysfunction noted severe mitral regurg severe tricuspid regurg trivial to small pericardial effusion noted biatrial enlargement DATE OF SURGERY: 01/23/2025 PREOPERATIVE DIAGNOSIS: Left lower quadrant abdominal wall abscess. POSTOPERATIVE DIAGNOSIS: Left lower quadrant abdominal wall abscess. PROCEDURE: I and D of this abscess. SURGEON: Yakov Meza MD DIRECTOR REACTOR PROJECTS: None. ANESTHESIA: IV sedation. DRAIN: One packing gauze was used. COMPLICATIONS: No complications. DESCRIPTION OF PROCEDURE: The patient was prepped and draped in the usual sterile fashion in the supine position with the right lower quadrant area exposed and an incision was applied on the upper portion of this abscess and taken down to the deeper tissues. The pus was drained out. Cultures were sent. Irrigation performed and hemostasis was secured. Iodoform packing gauze was applied. Dressing was applied. The patient tolerated the procedure well and was taken back to recovery room in stable condition. Condition at Discharge: Poor Final Diagnosis/Problems List #Sepsis with leukocytosis due to abdominal wall abscess #Acute on chronic Systolic heart failure # LV thrombus- onEliquis #NSTEMI; most likely type 2 [place]; demand ischemia due to above #Hypertensive kidney heart disease with heart failure; continue and adjust antihypertensive medications; stable renal function; continue monitoring #Iron-deficiency anemia; continue oral iron; no signs/symptoms of active bleeding; continue monitoring #Marijuana use disorder; counseled on cessation for 17 minutes; continue monitoring #Elevated TSH; most likely subclinical hypothyroidism; to repeat thyroid function test as outpatient; continue monitoring #Low HDL; on statin; continue monitoring Discharge Disposition: Home Discharge Instruct/Medications Diet: Cardiac 2g Na,low cholest (2 gm sodium, low cholesterol) Activity: Light activity Follow Up/Referral: Surgical Clinic Medications: See [facility] Discharge Statement: "Patient was advised to return to the ER or call 911 if any headaches, dizziness, shortness of breath, chest pain, abdominal pain, bleeding, fevers, or worsening of medical condition. Patient was counseled about treatment plan, medications, possible side effects, patientverbalized understanding. All questions were answered to the best of my ability. This discharge took greater then 30 minutes in planning, reviewing documentation, counseling the patient, and discussing with other team members." ASSESSMENT ASSESSMENT Assessment Date of Service: Jan 25, 2025 Billing Provider: AGUSTIN LE MD Common Visit Codes: [id number]/[id number] DISCH DAY >30min AGUSTIN LE MD Jan 25, 2025 13:43
[2025-01-25 16:22] VITALS: BP 113/75; PULSE 71; RESP 16; TEMP 36.6; O2SAT 98
[2025-01-25 17:00] VITALS: BP 106/70; PULSE 69; RESP 18; TEMP 98.1; O2SAT 96
[2025-01-25] MEDS ORDERED: VANCOMYCIN 1GM/250ML KIT 250 ML IV ONE (21:00)
== END 2025-01-25 17:20 | disposition home or self-care (01) | DRG 710 ==
LOC: EDBD 22:24 → ER 22:24 → OVERFLOW 23:59 → TELE-EAST 01-19 22:00 → EAST 01-24 22:09 → TELE-EAST 01-25 00:44
PROVIDERS: ADMIT Internal Medicine; ATTEND Internal Medicine
PROC: 0J980ZZ Drainage of Abdomen Subcutaneous Tissue and Fascia, Open Approach (ICD-10-PCS; principal; 2025-01-23 16:36)
DX: A41.9 Sepsis, unspecified organism (principal); I21.A1 Myocardial infarction type 2; I50.23 Acute on chronic systolic (congestive) heart failure; L02.211 Cutaneous abscess of abdominal wall; I13.0 Hypertensive heart and chronic kidney disease with heart failure and stage 1 through stage 4 chronic kidney disease, or unspecified chronic kidney disease; D50.9 Iron deficiency anemia, unspecified; N18.9 Chronic kidney disease, unspecified; F41.9 Anxiety disorder, unspecified; E66.9 Obesity, unspecified; I08.3 Combined rheumatic disorders of mitral, aortic and tricuspid valves; E03.8 Other specified hypothyroidism; Z79.899 Other long term (current) drug therapy; Z79.01 Long term (current) use of anticoagulants; Z91.199 Patient's noncompliance with other medical treatment and regimen due to unspecified reason; Z68.30 Body mass index [BMI] 30.0-30.9, adult; Z82.49 Family history of ischemic heart disease and other diseases of the circulatory system; Z83.3 Family history of diabetes mellitus; Z79.82 Long term (current) use of aspirin; Z79.84 Long term (current) use of oral hypoglycemic drugs; Z79.2 Long term (current) use of antibiotics
CPT/HCPCS: 36415; 71045; 80048; 80053; 80061; 80202; 80307; 81025; 83036; 83735; 83880; 84443; 84484; 85025; 87070; 87075; 87081; 87205; 93005; 93306; 99291; G0378; J0690; J2003; J2250; J2405; J2543; J2704; J3490

== ENCOUNTER 2025-10-17 20:35 | Inpatient (IN) | payer MEDICAID, OTHER ==
[~2025-10-17] VITALS: Ht 167.6 cm; Wt 68.3 kg
[~2025-10-17 20:35] MED LIST: APIX5TAB PO; ASPI1TAB20 PO; AUG875T PO; CARV-216 PO; FURO1TAB31 PO; LOS25T PO
[2025-10-17 20:57] LABS: Hematocrit 32.0 % (36.0-46.0); Hemoglobin 10.2 g/dL (12.2-16.2); Mean Corpuscular Hemoglobin 29.8 pg (28.0-32.0); Mean Corpuscular Volume 93.5 fL (80.0-100.0); Nucleated Red Blood Cells % 1.0 %
[2025-10-17] MEDS: MAALOX PLUS or MAALOX 30 ML PO ONE (21:08)
[2025-10-17 21:11] LABS: Albumin 3.6 g/dL (3.2-4.8); Anion Gap 12 (5-15); BUN/Creatinine Ratio 21.8 (10.0-20.0); Calcium 9.1 mg/dL (8.7-10.4); Carbon Dioxide 25 mmol/L (20-31); Chloride 100 mmol/L (98-107); Glucose 78 mg/dL (74-106); Potassium 3.7 mmol/L (3.5-5.1); Sodium 137 mmol/L (136-145); Total Protein 7.8 g/dL (5.7-8.2)
--- NOTE | 2025-10-17 21:23 | DVH ---
CHEST RADIOGRAPH Indication: CP Technique: Single frontal view of the chest was obtained Comparison: XY CHEST PORTABLE on DOS: 01/18/25 FINDINGS/IMPRESSION: The lungs are clear. The cardiomediastinal silhouette is unchanged, enlarged. No pleural effusion or pneumothorax. No acute osseous abnormality.
--- NOTE | 2025-10-17 21:30 | ECG ---
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
[2025-10-17 21:31] LABS: Alanine Aminotransferase 49 U/L (7-40); Alkaline Phosphatase 248 U/L (46-116); Bilirubin, Total 1.6 mg/dL (0.2-1.0); Blood Urea Nitrogen 31 mg/dL (9-23)
--- NOTE | 2025-10-17 21:55 | ED.PDOC ---
History of Present Illness HPI Comments 40-year-old female who is brought in by ambulance from private residence for chief complaint of epigastric and midsternal chest pain. Significant history for anemia, anxiety, CHF - on Lasix, HLD, NSTEMI, LV thrombus, hypertensive kidney heart disease, and marijuana abuse. Per EMS personnel report, patient endorses atraumatic onset of 9/10, stabbing epigastric pain that radiates up to her midsternal chest area 45x minutes prior to ED arrival. Associated nausea. Notable recent history of noncompliance with Lasix due to insurance/pharmacy issues Patient was given 324 mg of aspirin and 1.4 mg of nitroglycerin, with pain improving to a 7/10 in the severity. Patient now states chest pain is subsiding but is still having pain to her epigastric region. She also mentions having a recent cardiac procedure performed on her 1 week ago but is unsure what it was for. Patient denies having any further acute symptoms, such as shortness of breath, vomiting, nausea, cough, fever, or dizziness. Chief Complaint: Chest Pain Time Seen by MD: 20:35 Reviewed Notes: Nurses Notes, Injection Molding Process Technician Notes, Medications, Allergies Allergies: Coded Allergies: NO KNOWN ALLERGIES (Unverified , 01/18/25) Home Meds Active Scripts Losartan Potassium (Losartan Potassium) 25 Mg Tab, 25 MG PO DAILY for 30 Days, #30 TAB Prov:AGUSTIN LE MD 01/25/25 Carvedilol (COREG) 12.5 Mg Tab, 12.5 MG PO Q12HR for 30 Days, #60 TAB Prov:AGUSTIN LE MD 01/25/25 Apixaban Base (ELIQUIS) 5 Mg Tab, 5 MG PO BID for 30 Days, #60 TAB Prov:AGUSTIN LE MD 01/25/25 Amoxicillin & Pot Clavulanate (AUGMENTIN TABLET) 875 Mg Tb, 875 MG PO BID for 10 Days, #20 TAB Prov:AGUSTIN LE MD 01/25/25 Reported Medications Aspirin (Aspir-81) 81 Mg Tab, 1 TAB PO DAILY, #30 TAB 5 Refills 01/19/25 Furosemide (Lasix) 40 Mg Tab, 40 MG PO, TAB 01/19/25 Information Source: Patient, Emergency Med Personnel Mode of Arrival: EMS Severity: Moderate Timing: Minutes Duration: Since onset Prehospital treatment: 12 Lead EKG, ASA, Sail Repair Person, NTG Past Medical History PAST MEDICAL HISTORY: Anemia (Iron D50), Anxiety, CHF (On Lasix), High Lipids, MT (NSTEMI) Past Medical History (Other): LV thrombus Sepsis Hypertensive kidney heart disease with heart failure Surgical History (Other): Unspecified cardiac procedure TUBE MOLDER FIBERGLASS History: Denies all TUBE MOLDER FIBERGLASS Hx Family History Family History: Unknown Social History Smoker: Non-Smoker Alcohol: Denies ETOH Use Drugs: Marijuana Lives In: Home All Other Systems: Reviewed and Negative (Comprehensive review of systems are negative unless otherwise stated in HPI) Physical Exam General Appearance: No Apparent Distress, Normal, Other (Uncomfortable appearing) HEENT: Normal ENT Inspection, Pharynx Normal, TMs Normal Neck: Full Range of Motion, Non-Tender, Normal, Normal Inspection Respiratory: Chest Non-Tender, Lungs Clear, No Accessory Muscle Use, No Respiratory Distress, Normal Breath Sounds Cardiovascular: No Edema, No JVD, No Murmur, No Gallop, Normal Peripheral Pulses, Regular Rate/Rhythm Breast Exam: Deferred Gastrointestinal: Epigastric (Tenderness), No Organomegaly, No Pulsatile Mass, Normal Bowel Sounds, Soft, Tenderness (Epigastric region) Genitalia: Deferred Pelvic: Deferred Rectal: Deferred Extremities: No calf tenderness, Normal capillary refill, Normal inspection, Normal range of motion, Non-tender, No pedal edema Musculoskeletal : Apperance: Normal Neurologic: Alert, speed belt sander II-XII nml as Tested, No Motor Deficits, Normal Affect, Normal Mood, No Sensory Deficits Cerebellar Function: Normal Reflexes: Normal Skin: Dry, Normal Color, Warm Lymphatic: No Adenopathy Was a procedure done? Was a procedure done?: No EKG EKG #1: Pulse Rate (adult): 101 [place]: Normal Cardiac Rhythm: ST Block: RBBB Hypertrophy: None ST: Normal EKG #2: Pulse Rate (adult): 97 [place]: Normal Cardiac Rhythm: NSR Block: RBBB Hypertrophy: None ST: Normal Differential Dx Considerations may include: MT, PE, ACS, URI, PNA, angina, anxiety, gastritis, gastroenteritis, GERD, musculoskeletal pain, viral syndrome, among others X-Ray, Labs, Meds, VS Vital Signs Date Time Temp Pulse Resp B/P (MAP) Pulse Ox O2 Delivery O2 Flow Rate FiO2 12/2/25 21:55 97 10/17/25 21:27 97 10/17/25 21:05 97.6 77 18 122/96 (105) 96 97.6 10/17/25 21:05 77 18 96 10/17/25 20:41 98.1 103 18 121/84 95 98.1 10/17/25 20:35 101 Lab Test 10/17/25 21:24 10/17/25 20:37 Range/Units Total Bilirubin 1.6 H 1.6 H 0.2-1.0 mg/dL Direct Bilirubin 1.0 H <0.3 mg/dL Aspartate Amino Transferase (AST) 60 H 57 H 13-40 U/L Alanine Aminotransferase (ALT) 51 H 49 H 7-40 U/L Alkaline Phosphatase 257 H 248 H 46-116 U/L Troponin I High Sensitivity 104 *H 91 *H </=34 ng/L Total Protein 7.7 7.8 5.7-8.2 g/dL Albumin 3.6 3.6 3.2-4.8 g/dL White Blood Count 6.8 4.4-10.8 10^3/uL Red Blood Count 3.43 L 4.0-5.20 10^6/uL Hemoglobin 10.2 L 12.2-16.2 g/dL Hematocrit 32.0 L 36.0-46.0 % Mean Corpuscular Volume 93.5 80.0-100.0 fL Mean Corpuscular Hemoglobin 29.8 28.0-32.0 pg Mean Corpuscular Hemoglobin Concent 31.8 L 32.0-36.0 g/dL Red Cell Distribution Width 22.2 H 11.8-14.3 % Platelet Count 434 140-450 10^3/uL Mean Platelet Volume 8.4 6.9-10.8 fL Neutrophils (%) (Auto) 66.4 37.0-80.0 % Lymphocytes (%) (Auto) 19.8 10.0-50.0 % Monocytes (%) (Auto) 8.7 0.0-12.0 % Eosinophils (%) (Auto) 3.6 0.0-7.0 % Basophils (%) (Auto) 1.5 0.0-2.0 % Neutrophils # (Auto) 4.5 1.6-8.6 10 ^3/uL Lymphocytes # (Auto) 1.3 0.4-5.4 10 ^3/uL Monocytes # (Auto) 0.6 0-1.3 10 ^3/uL Eosinophils # (Auto) 0.2 0-0.8 10 ^3/uL Basophils # (Auto) 0.1 0-0.2 10 ^3/uL Nucleated Red Blood Cells 1.0 % Prothrombin Time 14.0 H 9.3-11.8 sec Prothrombin Time INR 1.36 H 0.9-1.15 Activated Partial Thromboplast Time 25.7 24.5-34.5 SEC Sodium Level 137 136-145 mmol/L Potassium Level 3.7 3.5-5.1 mmol/L Chloride Level 100 98-107 mmol/L Carbon Dioxide Level 25 20-31 mmol/L Anion Gap 12 5-15 Blood Urea Nitrogen 31 H 9-23 mg/dL Creatinine 1.42 H 0.550-1.02 mg/dL Glomerular Filtration Rate Calc 48 >90 mL/min BUN/Creatinine Ratio 21.8 H 10.0-20.0 Serum Glucose 78 74-106 mg/dL Calcium Level 9.1 8.7-10.4 mg/dL B-Type Natriuretic Peptide > 5000.00 0-100 pg/mL Lipase 63 H 12-53 U/L Current Medications Medications (Trade) Dose Ordered Sig/Hernán Route Start Time Stop Time Status Last Admin Al Hydrox/Mg Hydrox/Simethicone (Maalox Plus) 30 ml ONCE ONCE PO 10/17/25 20:45 10/17/25 20:46 DC 10/17/25 21:08 Aspirin 324 mg ONCE ONCE PO 10/17/25 22:00 10/17/25 22:01 DC 10/17/25 22:19 [place] [id number] Ph: [phone] DIAGNOSTIC IMAGING Diagnostic Imaging Report : [id number] Signed PATIENT: MARY BROWN ACCT: [id number] UNIT: [id number] : 1985 LOC: ER ROOM / BED: / AGE / SEX: 40 / F ADM STATUS: REG ER SERVICE 38 ORDERING PHYSICIAN: YADIRA PIMENTEL MD PROCEDURE(s): CXR1 - CHEST XRAY 1 VIEW REASON: CP ORDER NUMBER(s): [id number], ACCESSION NUMBER(s): [id number] CHEST RADIOGRAPH Indication: CP Technique: Single frontal view of the chest was obtained Comparison: XY CHEST PORTABLE on DOS: 01/18/25 FINDINGS/IMPRESSION: The lungs are clear. The cardiomediastinal silhouette is unchanged, enlarged. No pleural effusion or pneumothorax. No acute osseous abnormality. ATED BY: FITZ DILLARD MD DICTATED DATE/TIME: 10/17/252120 SIGNED BY: FITZ DILLARD MD SIGNED DATE/TIME: 10/17/252120 CC: X-Ray, Labs, Meds, VS Comment Patient with history of CKD, LV thrombus, cardiac disease, CHF, presents with chest pain, epigastric pain, nausea. Chest x-ray to evaluate for evidence of pneumonia, pneumothorax, CHF EKG and troponin to evaluate for evidence of arrhythmia, ACS, AMI Lab work (CBC, BMP) to evaluate for evidence of severe anemia, electrolyte abnormality including hypokalemia, hyperkalemia, hypernatremia, hyponatremia, hyperglycemia, hypoglycemia, etc. Consider CT angio chest due to patient's presenting symptoms, but no CT angio chest obtained due to alternate cause of patient's presenting symptoms more likely after initial workup and management SHRUTHI Victor Re-evaluate Social determinant surveillance affecting care: Social determinants of health that will affect the patient's care: Poor health literacy (additional time provided an explanation) Drug abuse (provided counseling discussed risks of substance abuse) Poor access to outpatient care/followup (provided outpatient resources) Time of 1ST Reevaluation: 20:15 Reevaluation 1ST: Unchanged Patient Education/Counseling: Diagnosis, Treatment, Other (Need for admission) Family Education/Counseling: No Family Present SEPSIS Sepsis Screen Date sepsis recognized/suspect: Oct 17, 2025 Time Sepsis recognized/suspect: 2104 Recent Procedure: No On Antibiotic Therapy: No Respiratory Rate >20: No Heart Rate >90: No Temp<36 C (96.8 F) or >38.3 C: No SBP <90 or MAP <65 mmHG: No New Acute Mental Status Change: No Is the patient on CPAP, BIPAP,: No Physician Orders Troponin-I Hs (10/17/25 23:39) Electrocardigram (10/17/25 21:39) Electrocardigram (10/17/25 23:39) Test, Urine (10/17/25 20:39) Chest Xray 1 View (10/17/25 20:39) Vital Signs Date Time Temp Pulse Resp B/P (MAP) Pulse Ox O2 Delivery O2 Flow Rate FiO2 10/17/25 21:55 97 10/17/25 21:27 97 10/17/25 21:05 97.6 77 18 122/96 (105) 96 97.6 10/17/25 21:05 77 18 96 10/17/25 20:41 98.1 103 18 121/84 95 98.1 10/17/25 20:35 101 Laboratory Tests Test 10/17/25 20:37 White Blood Count 6.8 10^3/uL (4.4-10.8) Medications Medications Dose Ordered Sig/Hernán Route Start Time Stop Time Status Last Admin Dose Admin Al Hydrox/Mg Hydrox/Simethicone 30 ml ONCE ONCE PO 10/17/25 20:45 10/17/25 20:46 DC 10/17/25 21:08 Aspirin 324 mg ONCE ONCE PO 10/17/25 22:00 10/17/25 22:01 DC 10/17/25 22:19 Departure 1 Departure Time of Disposition: 22:30 (On reassessment, patient found to have an elevated troponin, up trending at repeat. Given full-dose aspirin. Labs and imaging otherwise unremarkable. We will admit for cardiac evaluation.) Impression: Primary Impression: NSTEMI (non-ST elevated myocardial infarction) Additional Impressions: Elevated troponin Chest pain Qualified Codes: I20.89 - Other forms of angina pectoris Acute epigastric pain Nausea Disposition: 09 ADMITTED INPATIENT Admit to: Tele Condition: Guarded Critical Care Note Critical Care Time?: Yes (45 min-critical care time only) Critical care comment: NSTEMI Stability Stability form required: No Heart Score Heart Score: Heart Score Response (Comments) Value History Highly Suspicious 2 EKG Normal 0 Age <45 0 Risk Factors >3 or Hx ASHD 2 Troponin >3 x's Normal limit 2 Total 6 I personally scribed for YADIRA PIMENTEL MD ([email or web address]) on 10/17/25 at 21:55. Electronically submitted by Gray Caba ([email or web address]). I personally scribed for YADIRA PIMENTEL MD ([email or web address]) on 10/17/25 at 22:53. Electronically submitted by Gray Caba ([email or web address]). YADIRA PIMENTEL MD Oct 17, 2025 21:55
[2025-10-17] MEDS: ENOXAPARIN SOD 100 MG/1 ML SYRINGE SC ONE (22:51)
[2025-10-17] MEDS: FUROSEMIDE 40 MG/4 ML VIAL IV ONE (22:57)
[2025-10-17 23:13] LABS: INR 1.36 (0.9-1.15); Partial Thromboplastin Time 25.7 SEC (24.5-34.5); Prothrombin Time 14.0 sec (9.3-11.8)
[2025-10-17 23:14] LABS: Albumin 3.6 g/dL (3.2-4.8); Total Protein 7.7 g/dL (5.7-8.2)
[2025-10-17 23:19] LABS: Alanine Aminotransferase 51.0 U/L (7-40); Alkaline Phosphatase 257.0 U/L (46-116); Bilirubin, Direct 1.0 mg/dL (<0.3); Bilirubin, Total 1.6 mg/dL (0.2-1.0)
--- NOTE | 2025-10-17 23:22 | DVHHPRES ---
History of Present Illness Resident Creating Document: JACKELINE HOWARD RESIDENT History of Present Illness Ms Gretel Pearce, a 40-year-old female previous history of iron-deficiency anemia, anxiety, systolic heart failure with ejection fraction less than 10%, LV thrombus on Eliquis, hypertension, kidney disease possibly cardiorenal syndrome, significant methamphetamine and marijuana abuse presented to the ER with the complaints of central and upper abdominal and chest pain, pressure-like tightness, 8/10 intensity, the pain starts in the epigastric region and moves upwards to the chest. She reports having shortness of breaths, orthopnea and paroxysmal nocturnal dyspnea. She takes Lasix at home, however her shortness of breaths was not controlled by Lasix anymore, so she ended up coming to the year. She is also experiencing palpitations and dizziness. For her, dizziness is the spinning of the world around her. She did not lose consciousness. The patient underwent a recent angiogram. She also have cough for last few weeks, with green sputum production. She reports occasional constipation and per rectal bleeding as well. Past medical history: As above Past surgical history: Intra-abdominal abscess I&D, Allergies: None Menstrual history: Regular, last menstrual cycle was 4 months ago, however has been ruled out by negative urine test. Smoking: Quit since last 2 weeks. Sixteen pack year smoking history Alcohol: Occasional. Patient can not remember the last drink. Drugs: Methamphetamine for 15 years, marijuana 15 years. Quit 2 weeks ago. Home medications: Lasix, aspirin, Eliquis Code status: Full code Review of Systems Allergies: Coded Allergies: NO KNOWN ALLERGIES (Unverified , 01/18/25) Medications Current Medications Medications Dose Ordered Sig/Hernán Route Start Time Stop Time Status Last Admin Dose Admin Enoxaparin Sodium 40 mg DAILY SC 10/18/25 10:00 Aspirin 81 mg DAILY PO 10/18/25 10:00 Carvedilol 12.5 mg Q12HR PO 10/18/25 10:00 Furosemide 40 mg DAILY IV 10/18/25 10:00 Exam Vital Signs Vital Signs Date Time Temp Pulse Resp B/P (MAP) Pulse Ox O2 Delivery O2 Flow Rate FiO2 10/17/25 22:57 127/88 10/17/25 21:55 97 10/17/25 21:05 97.6 18 96 97.6 Exam Pt is lying on bed General Appearance: Alert, Oriented X3, Cooperative, Mild distress HEENT: Atraumatic, Mucous membranes moist/pink Respiratory: Clear to auscultation, Normal air movement, No added sounds Cardiovascular: Regular rate, Normal S1, Normal S2, No murmurs Abdominal/ : Active bowel sounds, Soft, no distention, no tenderness Extremities: 1+ edema, Normal pulses, No tenderness/swelling Skin: No Significant rash, except past surgical scars Neuro: Normal speech, sensorimotor deficits none Psych/Mental Status: Mental status NL, Mood NL Nurse was there as visitor services technician during examination Labs/Xrays Labs Test 10/17/25 21:24 10/17/25 20:37 Range/Units Total Bilirubin 1.6 H 0.2-1.0 mg/dL Direct Bilirubin 1.0 H <0.3 mg/dL Aspartate Amino Transferase (AST) 60 H 13-40 U/L Alanine Aminotransferase (ALT) 51 H 7-40 U/L Alkaline Phosphatase 257 H 46-116 U/L Troponin I High Sensitivity 104 *H </=34 ng/L Total Protein 7.7 5.7-8.2 g/dL Albumin 3.6 3.2-4.8 g/dL White Blood Count 6.8 4.4-10.8 10^3/uL Red Blood Count 3.43 L 4.0-5.20 10^6/uL Hemoglobin 10.2 L 12.2-16.2 g/dL Hematocrit 32.0 L 36.0-46.0 % Mean Corpuscular Volume 93.5 80.0-100.0 fL Mean Corpuscular Hemoglobin 29.8 28.0-32.0 pg Mean Corpuscular Hemoglobin Concent 31.8 L 32.0-36.0 g/dL Red Cell Distribution Width 22.2 H 11.8-14.3 % Platelet Count 434 140-450 10^3/uL Mean Platelet Volume 8.4 6.9-10.8 fL Neutrophils (%) (Auto) 66.4 37.0-80.0 % Lymphocytes (%) (Auto) 19.8 10.0-50.0 % Monocytes (%) (Auto) 8.7 0.0-12.0 % Eosinophils (%) (Auto) 3.6 0.0-7.0 % Basophils (%) (Auto) 1.5 0.0-2.0 % Neutrophils # (Auto) 4.5 1.6-8.6 10 ^3/uL Lymphocytes # (Auto) 1.3 0.4-5.4 10 ^3/uL Monocytes # (Auto) 0.6 0-1.3 10 ^3/uL Eosinophils # (Auto) 0.2 0-0.8 10 ^3/uL Basophils # (Auto) 0.1 0-0.2 10 ^3/uL Nucleated Red Blood Cells 1.0 % Prothrombin Time 14.0 H 9.3-11.8 sec Prothrombin Time INR 1.36 H 0.9-1.15 Activated Partial Thromboplast Time 25.7 24.5-34.5 SEC Sodium Level 137 136-145 mmol/L Potassium Level 3.7 3.5-5.1 mmol/L Chloride Level 100 98-107 mmol/L Carbon Dioxide Level 25 20-31 mmol/L Anion Gap 12 5-15 Blood Urea Nitrogen 31 H 9-23 mg/dL Creatinine 1.42 H 0.550-1.02 mg/dL Glomerular Filtration Rate Calc 48 >90 mL/min BUN/Creatinine Ratio 21.8 H 10.0-20.0 Serum Glucose 78 74-106 mg/dL Calcium Level 9.1 8.7-10.4 mg/dL SEPSIS Sepsis Screen Date sepsis recognized/suspect: Oct 17, 2025 Time Sepsis recognized/suspect: 2104 Recent Procedure: No On Antibiotic Therapy: No Respiratory Rate >20: No Heart Rate >90: No Temp<36 C (96.8 F) or >38.3 C: No SBP <90 or MAP <65 mmHG: No New Acute Mental Status Change: No Is the patient on CPAP, BIPAP,: No Physician Orders Troponin-I Hs (10/17/25 23:39) Electrocardigram (10/17/25 21:39) Electrocardigram (10/17/25 23:39) Test, Urine (10/17/25 20:39) Chest Xray 1 View (10/17/25 20:39) Admit (10/17/25 22:31) Code Status (10/17/25 22:31) Enoxaparin Sodium (Lovenox) (10/18/25 10:00) Complete Blood Count (10/18/25 04:00) Comprehensive Metabolic Panel (10/18/25 04:00) Cardiac Diet-2gna,Lofat,Lochol (10/18/25 Breakfast) Oxygen By Nasal Cannula (10/17/25 22:31) Notify Md Of Changes From Base (10/17/25 22:31) Medical Safety Director For 24 Hours (10/17/25 22:31) Emergency Dysrhythmia Protocol (10/17/25 22:31) Rhythm Strips Once Every Shift (10/17/25 22:31) Aspirin Enteric Coated Tablet (Ecotrin E (10/18/25 10:00) Carvedilol Tablet (Coreg Tablet) (10/18/25 10:00) Furosemide Injection (Lasix Injection) (10/18/25 10:00) Drug Screen (10/17/25 22:45) Urinalysis (10/17/25 22:45) Abdomen Complete Sonogram (10/17/25 22:45) * Cardiology Consult (10/17/25 22:48) Vital Signs Date Time Temp Pulse Resp B/P (MAP) Pulse Ox O2 Delivery O2 Flow Rate FiO2 10/17/25 22:57 127/88 10/17/25 21:55 97 10/17/25 21:27 97 10/17/25 21:05 97.6 77 18 122/96 (105) 96 97.6 10/17/25 21:05 77 18 96 10/17/25 20:41 98.1 103 18 121/84 95 98.1 10/17/25 20:35 101 Laboratory Tests Test 10/17/25 20:37 White Blood Count 6.8 10^3/uL (4.4-10.8) Medications Medications Dose Ordered Sig/Hernán Route Start Time Stop Time Status Last Admin Dose Admin Al Hydrox/Mg Hydrox/Simethicone 30 ml ONCE ONCE PO 10/17/25 20:45 10/17/25 20:46 DC 10/17/25 21:08 30 ML Aspirin 324 mg ONCE ONCE PO 10/17/25 22:00 10/17/25 22:01 DC 10/17/25 22:19 324 MG Enoxaparin Sodium 80 mg ONCE ONCE SC 10/17/25 22:45 10/17/25 22:46 DC 10/17/25 22:51 80 MG Furosemide 40 mg ONCE ONCE IV 10/17/25 22:45 10/17/25 22:54 DC 10/17/25 22:57 40 MG Assessment/Plan Assessment/Plan Chest pain rule out ACS Acute exacerbation of systolic heart failure EF 10% Severe mitral and tricuspid regurgitation LV thrombus Right pleural effusion Cardiomegaly CXR: Cardiomegaly Echocardiography on 01/19/2025: Severe LV dysfunction, LV ejection fraction 10%, dilated LV marked, LV thrombus noted adjacent to LV septum, RV dysfunction noted, severe mitral regurgitation, severe tricuspid regurgitation, trivial to small pericardial effusion not, biatrial enlargement EKG: T-wave inversions in the anterior leads Troponin: 90s Monitor EKG and troponin Morphine Nitroglycerin Aspirin loading dose received Carvedilol 12.5 mg started Furosemide 40 mg IV daily Held home medication Eliquis due to inpatient status, started therapeutic Lovenox. Acute complicated UTI IV ceftriaxone daily Cholelithiasis Acute cholecystitis? Lipase 63, mildly elevated Abdominal ultrasound:Cholelithiasis and tumefactive sludge within the gallbladder, with marked gallbladder wall thickening. Negative sonographic Augustin's sign. Acute cholecystitis can not be excluded. Consider HIDA scan and surgical consult Abdominal ascites Cirrhosis with sequelae of portal venous hypertension Transaminitis Liver cirrhosis with portal hypertension Abdominal ultrasound: Ascites, bidirectional main portal venous flow Abdomen pelvis CT: Reviewed GI prophylaxis: Pantoprazole DVT prophylaxis: Lovenox Diet: Cardiac Goals of care discussed with the patient for more than 27 minutes: Full code status Case discussed with Dr. Phipps, patient and RN Plan discussed with: Patient, Other (RN) My Orders Orders - JACKELINE HOWARD RESIDENT Procedure Category Date Status Time Admit ADMIT 10/17/25 Transmitted 22:31 Code Status CODE 10/17/25 Transmitted 22:31 Enoxaparin Sodium PHA 10/18/25 In Process (Lovenox) 10:00 Complete Blood Count LAB 10/18/25 Verified 04:00 Comprehensive LAB 10/18/25 Verified Metabolic Panel 04:00 Cardiac DIET 10/18/25 Transmitted Diet-2gna,Lofat,Lochol Breakfast Oxygen By Nasal RT 10/17/25 Transmitted Cannula 22:31 Notify Of Changes DEJUAN 10/17/25 In Process From Base 22:31 Medical Safety Director For DEJUAN 10/17/25 In Process 24 Hours 22:31 Emergency Dysrhythmia DEJUAN 10/17/25 In Process Protocol 22:31 Rhythm Strips Once DEJUAN 12/2/25 In Process Every Shift 22:31 Aspirin Enteric PHA 10/18/25 In Process Coated Tablet 10:00 Carvedilol Tablet PHA 10/18/25 In Process (Coreg Tablet) 10:00 Furosemide Injection PHA 10/18/25 In Process (Lasix Injection) 10:00 Drug Screen LAB 10/17/25 Logged 22:45 Urinalysis LAB 10/17/25 Logged 22:45 Abdomen Complete US 10/17/25 Logged Sonogram 22:45 * Cardiology Consult CONS 10/17/25 Transmitted 22:48 Visit Coding STANDARD RES Billing Provider: AGUSTIN PHIPPS MD Date of Service if different f: Oct 18, 2025 Common Visit Codes: 35833-[id number] INP/OBS CARE (HIGH) Secondary Visit Codes: 36699-[id number] CARE PLAN 30 MINUTES JACKELINE HOWARD RESIDENT Oct 17, 2025 23:22 PABLO BRANCH RESIDENT Oct 18, 2025 05:55
[2025-10-17] MEDS: MORPHINE SULFATE INJ 2 MG/ml SYRG IV ONE (23:30)
[2025-10-18 01:09] LABS: Urine Protein, UAD Negative (Negative)
--- NOTE | 2025-10-18 01:15 | DVH ---
INDICATION: Check for liver cirrhosis and kidney disease TECHNIQUE: Multiple real-time sonographic images were obtained of the right upper quadrant. COMPARISON: None FINDINGS: The liver demonstrates moderately heterogeneous echotexture without focal mass lesions. The liver measures 15.5 cm. Bidirectional main portal venous flow appreciated. Right pleural effusion and abdominal ascites. There is no intrahepatic or extrahepatic ductal dilatation. The common duct measures 0.5 cm. Gallstones, the largest of which measures 1.4 x 1.3 x 0.6 cm, and tumefactive sludge within the gallbladder, which also exhibits marked wall thickening, measuring 1.0 cm. Negative sonographic augustin's sign. The right kidney measures 11.5 cm. The right kidney is normal in contour, size, and shape. The echogenicity is normal. There is no hydronephrosis. The left kidney measures 10.4 cm. The left kidney is normal in contour, size, and shape. The echogenicity is normal. There is no hydronephrosis. The pancreas is not well visualized due to overlying bowel gas. IMPRESSION: 1. Cholelithiasis and tumefactive sludge within the gallbladder, with marked gallbladder wall thickening. Negative sonographic Augustin's sign. Acute cholecystitis can not be excluded. 2. Right pleural effusion and abdominal ascites. 3. Bidirectional main portal venous flow.
[2025-10-18 01:32] LABS: Cannabinoid Screen, Urine Neg (NEGATIVE)
[2025-10-18 01:34] LABS: COVID19 ANTIGEN SOFIA FIA NEGATIVE (NEGATIVE)
[2025-10-18 01:45] LABS: Amphetamine Screen, Urine Neg (NEGATIVE); Barbiturate Scree,Urine Neg (NEGATIVE); Benzodiazephine Screen, Urine Neg (NEGATIVE); Cocaine Screen, Urine Neg (NEGATIVE); Opiate Scree,Urine Neg (NEGATIVE); Phencyclidine Screen, Urine Neg (NEGATIVE)
[2025-10-18] MEDS: HYDROcodone-ACET 5/325MG TAB PO ONE (01:46)
--- NOTE | 2025-10-18 04:58 | DVH ---
Exam: CT CT AB PEL WO CON-NO ORAL OR IV History: Abdominal pain Comparison Study: None Technique: Multidetector spiral CT of the abdomen was performed from lung bases to pubic symphysis. Imaging was performed without IV contrast. Axial, coronal and sagittal multiplanar reformats were obtained from the axial data set by the technologist. Radiation Dose : 1. Abdomen/Pelvis: CTDIvol 6.49 mGy, DLP 369.16 mGy*cm. Findings: Evaluation of solid organs is limited due to lack of intravenous contrast use. Lung Bases: Small right pleural effusion. The left lung base is clear. Cardiomegaly. No pericardial effusion. Liver: The liver is cirrhotic in its morphology and enlarged, measuring 20.5 cm in craniocaudal dimension. The right hepatic lobe is diffusely in homogeneous in its attenuation. No discrete focal lesions. Gallbladder and Biliary Tree: Cholelithiasis. Spleen: Unremarkable. Prominent perisplenic and retroperitoneal venous collaterals consistent with sequelae of portal venous hypertension. Moderate abdominopelvic ascites. Pancreas: The pancreas is grossly normal in appearance. Adrenal Glands: Unremarkable Kidneys: Kidneys are grossly normal without calculi or hydronephrosis. Bladder: Grossly unremarkable for degree of distention. Bowel: The stomach is grossly normal in appearance. Small bowel and colon are normal in caliber and distribution. The appendix is normal. Lymphadenopathy: No mesenteric, retroperitoneal or periportal lymphadenopathy. Abdominal Wall and Mesentery: Unremarkable. Vasculature: The visualized abdominal aorta is normal in size and caliber. Evaluation of abdominal and pelvic vessels is limited due to lack of intravenous contrast. Pelvic Organs: Unremarkable Musculoskeletal: No aggressive focal bony lesions, acute fractures or dislocation. IMPRESSION: 1. Cirrhosis with sequelae of portal venous hypertension. 2. Moderate abdominopelvic ascites. 3. Cholelithiasis. 4. Small right pleural effusion. 5. Cardiomegaly. Radiation optimization: All CT scans at this facility use at least one of these dose optimization techniques: automated exposure control mA and/or kV adjustment per patient size (includes targeted exams where dose is matched to clinical indication) or iterative reconstruction.
[2025-10-18] MEDS: SPIRONOLACTONE 25 MG TAB PO SCH (08:22)
[2025-10-18] MEDS: FUROSEMIDE 40 MG/4 ML VIAL IV SCH (08:23)
[2025-10-18] MEDS: CARVEDILOL 12.5 MG TAB PO SCH (09:17)
[2025-10-18] MEDS: ASPirin-EC 81 mg tab PO SCH (09:17)
[2025-10-18] MEDS: EMPAGLIFLOZIN 10 MG TAB PO SCH (09:18)
[2025-10-18] MEDS ORDERED: FUROSEMIDE 40 MG/4 ML VIAL IV SCH (10:00)
[2025-10-18] MEDS ORDERED: ENOXAPARIN SOD 40 MG/0.4 ML SYRINGE SC SCH (10:00)
[2025-10-18] MEDS ORDERED: FUROSEMIDE 40 MG TAB PO SCH (10:00)
[2025-10-18] MEDS: ENOXAPARIN SOD 80 MG/0.8ML SYRINGE SC SCH (10:42)
--- NOTE | 2025-10-18 11:22 | DVH ---
US limited, RUQ Indication: cholelithiasis symptomatic Comparison: US ABDOMEN COMPLETE SONOGRAM on DOS: 10/17/25 Technique: Limited ultrasound of the abdomen was performed and reviewed. Findings: The pancreas is not seen due to overlying bowel gas. The liver is echogenic and mildly nodular suggestive of early cirrhosis. Pulsatile portal vein waveforms likely from portal hypertension. Multiple gallstones. Diffuse gallbladder wall thickening with pericholecystic fluid. Positive sonographic Augustin's sign. The common bile duct measures 4 mm. The right kidney is 11.4 cm. The left kidney measures 11.1 cm No evidence for hydronephrosis. Right lower pole twinkling artifact without corresponding calculus seen on previous CT. Small volume ascites. Small right pleural effusion. IMPRESSION: Diffuse gallbladder wall thickening with pericholecystic fluid and positive sonographic augustin's sign. However, the gallbladder is not significantly distended, which is often seen with acute cholecystitis. Overall findings equivocal for acute cholecystitis. If there is concern for acute cholecystitis, HIDA scan can be obtained for further evaluation.
[2025-10-18 12:32] VITALS: BP 93/62; PULSE 75; RESP 16; TEMP 98; O2SAT 98
--- NOTE | 2025-10-18 13:53 | DVHPN2 ---
Progress Note Date Seen: Oct 18, 2025 Medical Necessity Reason Pt with a Central, PICC or Fol: No Objective vital signs Vital Sign Date Time Temp Pulse Resp B/P (MAP) Pulse Ox O2 Delivery O2 Flow Rate FiO2 10/18/25 12:32 98.0 75 16 93/62 (72) 98 98.0 10/18/25 12:13 Room Air* 0 21 medications Current Medications Medications Dose Ordered Sig/Hernán Route Start Time Stop Time Status Last Admin Dose Admin Aspirin 81 mg DAILY PO 10/18/25 10:00 10/18/25 09:17 81 MG Carvedilol 12.5 mg Q12HR PO 10/18/25 10:00 10/18/25 09:17 12.5 MG Furosemide 40 mg BID IV 10/18/25 07:45 10/18/25 08:23 40 MG Spironolactone 50 mg DAILY PO 10/18/25 10:00 10/18/25 08:22 50 MG Empaglifozin 10 mg DAILY PO 10/18/25 10:00 10/18/25 09:18 10 MG Enoxaparin Sodium 80 mg Q12HR SC 10/18/25 10:00 10/18/25 10:42 80 MG Metronidazole 100 ml @ 100 mls/hr Q8HR IV 10/18/25 22:00 Ceftriaxone Sodium 50 ml @ 100 mls/hr DAILY@09 IV 10/19/25 09:00 Acetaminophen/ Hydrocodone Bitart 1 tab Q6HP PRN PO 10/18/25 13:45 UNV laboratory and microbiology Laboratory Tests 10/17/25 20:37 Test 10/17/25 20:37 Range/Units Serum Glucose 78 74-106 mg/dL Problem List/Assessment/Plan Problem List/Assessment/Plan 10/18/25 chart reviewed, imaging reviewed, patient with cirrhosis and stigmata of portal hypertension, as such she is not a suitable candidate to have an operation at this facility, Recommend patient be referred to a higher level of care facility (I only reviewed documentation, did not examine patient) Plan discussed with: JANETTE Lynch MD Oct 18, 2025 13:53
[2025-10-18] MEDS: HYDROcodone-ACET 7.5/325MG TAB PO PRN (14:01)
--- NOTE | 2025-10-18 14:51 | DVHPNRES ---
Progress Note Date Seen: Oct 18, 2025 Resident Creating Document: SANDRA PANCHAL RESIDENT Medical Necessity Reason Pt with a Central, PICC or Fol: No Subjective Review of Systems Gretel Pearce is a 40-year-old female with past medical history of congestive heart failure with ejection fraction of 10%, dyslipidemia, left ventricular thrombus, hypertension, anxiety, iron-deficiency anemia presented with complaints of abdominal pain Since yesterday. Patient rates the pain 10 on 10 in intensity, sharp in quality, radiating to the chest, increasing on exercising. She also complains of associated shortness of breath and generalized weakness. She denies any fever, chills. Patient takes Lasix at home. She reports cough for the last few weeks with green sputum and constipation. Patient reports that an angiogram was done last week at another facility. PMHx: congestive heart failure with ejection fraction of 10%, dyslipidemia, left ventricular thrombus, hypertension, anxiety, iron-deficiency anemia PSHx: none Family history: nonrelevant Social history: denies smoking or alcohol. Admits to methamphetamine and marijuana use, last use 2 weeks back Home medication: Lasix 20 mg, Eliquis, aspirin Allergic history: known allergies General: complains of generalized weakness HEENT: No headaches, visiual changes, hearing loss, tinnitus, nasal congestion and discharge, and sore throat. Cardiovascular: Denies chest pain, palpitations, dyspnea on exertion, orthopnea, or claudication. Respiratory: No cough, and wheezing. Gastrointestinal:Complains of abdominal pain Genitourinary: No dysuria, hematuria, discharge, frequency, urgency, nocturia, incontinence, and urinary retention. Endocrine: No heat or cold intolerance, polydipsia, polyuria, and polyphagia. Neurological: No dizziness, extremity weakness and numbness, tremors, gait disturbance, seizures, and memory impairment. Psychiatric: Denies depression, anxiety,or insomnia. Musculoskeletal: Denies neck pain, stiffness and swelling, back pain, muscle weakness, joint pain, stiffness, swelling, or limited range of motion. Skin: No rashes, itching, skin lesion, changes in hair, nail, skin texture and breast. Hematologic/Lymphatic: Denies easy bruising, bleeding tendencies, or lymph node enlargement. Objective vital signs Vital Sign Date Time Temp Pulse Resp B/P (MAP) Pulse Ox O2 Delivery O2 Flow Rate FiO2 10/18/25 12:32 98.0 75 16 93/62 (72) 98 98.0 10/18/25 12:13 Room Air* 0 21 medications Current Medications Medications Dose Ordered Sig/Hernán Route Start Time Stop Time Status Last Admin Dose Admin Aspirin 81 mg DAILY PO 10/18/25 10:00 10/18/25 09:17 81 MG Carvedilol 12.5 mg Q12HR PO 10/18/25 10:00 10/18/25 09:17 12.5 MG Furosemide 40 mg BID IV 10/18/25 07:45 10/18/25 08:23 40 MG Spironolactone 50 mg DAILY PO 10/18/25 10:00 10/18/25 08:22 50 MG Empaglifozin 10 mg DAILY PO 10/18/25 10:00 10/18/25 09:18 10 MG Enoxaparin Sodium 80 mg Q12HR SC 10/18/25 10:00 10/18/25 10:42 80 MG Metronidazole 100 ml @ 100 mls/hr Q8HR IV 10/18/25 22:00 Ceftriaxone Sodium 50 ml @ 100 mls/hr DAILY@09 IV 10/19/25 09:00 Acetaminophen/ Hydrocodone Bitart 1 tab Q6HP PRN PO 10/18/25 13:45 10/18/25 14:01 1 TAB Examination General Appearance: Alert, Oriented X3, Cooperative, No acute distress HEENT: Atraumatic, PERRLA, EOMI, Mucous membrane moist/pink Respiratory: Clear to auscultation, Normal air movement Cardiovascular: Regular rate, Normal S1, Normal S2, No murmurs, no chest wall tenderness Abdominal:Tenderness the epigastric region, no guarding or rigidity. Extremities: No clubbing, No cyanosis, No edema, Normal pulses, No tenderness/swelling Skin: No rashes, No breakdown, No significant lesion Neuro: Normal gait, Normal speech, Strength at 5/5 X4 ext, Normal tone, Sensation intact, Cranial nerves 3-12 NL, Reflexes 2+ Psych/Mental Status: Mental status NL, Mood NL laboratory and microbiology Laboratory Tests 10/17/25 20:37 Test 10/17/25 20:37 Range/Units Serum Glucose 78 74-106 mg/dL Problem List/Assessment/Plan Problem List/Assessment/Plan Assessment/Plan Chest pain rule out ACS Acute exacerbation of systolic heart failure EF 10% Severe mitral and tricuspid regurgitation LV thrombus Right pleural effusion Cardiomegaly Essential hypertension CXR: Cardiomegaly Echocardiography on 01/19/2025: Severe LV dysfunction, LV ejection fraction 10%, dilated LV marked, LV thrombus noted adjacent to LV septum, RV dysfunction noted, severe mitral regurgitation, severe tricuspid regurgitation, trivial to small pericardial effusion not, biatrial enlargement EKG: T-wave inversions in the anterior leads Troponin: 90s Monitor EKG and troponin Morphine Nitroglycerin Aspirin loading dose received Carvedilol 12.5 mg started Furosemide 40 mg IV daily Held home medication Eliquis due to inpatient status, started therapeutic Lovenox. cardiology consult Acute complicated UTI IV ceftriaxone daily Cholelithiasis Rule out Acute cholecystitis Lipase 63, mildly elevated Abdominal ultrasound:Cholelithiasis and tumefactive sludge within the gallbladder, with marked gallbladder wall thickening. Negative sonographic Augustin's sign. Acute cholecystitis can not be excluded. Consider HIDA scan and surgical consult surgery consult Cirrhosis with sequelae of portal venous hypertension Abdominal ascites due to above Transaminitis due to above Abdominal ultrasound: Ascites, bidirectional main portal venous flow Abdomen pelvis CT: Reviewed Dyslipidemia Follow lipid profile Anxiety Follow up with PCP on discharge GI prophylaxis: Pantoprazole DVT prophylaxis: Lovenox Diet: Cardiac Goals of care Full code status Case discussed with Dr. Baig Plan discussed with: Patient My Orders My Orders Orders - SANDRA PANCHAL Procedure Category Date Status Time Gallbladder US 10/18/25 Resulted 10:29 * Surgical Consult CONS 10/18/25 Transmitted Respiratory Culture KARYN 10/18/25 Uncollected W/ Gs 14:36 Complete Blood Count LAB 10/19/25 Verified 04:00 Comprehensive LAB 10/19/25 Verified Metabolic Panel 04:00 Date of Service: Oct 18, 2025 Billing Provider: SONAL REARDON MD Common Visit Codes: [id number] INP/OBS CARE(HIGH) SANDRA PANCHAL Oct 18, 2025 14:51
--- NOTE | 2025-10-18 15:36 | DVHINCON2 ---
Date Seen: Oct 18, 2025 Referring Physician MD [place] resident Reason for Consultation Systolic heart failure with EF less than 20% History of Present Illness This is a 40-year-old female patient who presents to the emergency room with chief complaint of abdominal pain. The patient reports that the abdominal pain began on the day of emergency room arrival. Cardiology has been consulted at this time for history of CHF with EF 10%. Initial twelve lead electrocardiogram reveals sinus tachycardia with right bundle branch. Patient denies any cardiac symptoms at time of assessment. Initial troponin level of 91ng/L peak level at 104ng/L. Initial BNP level >5000pg/mL. Significant past medical history includes congestive heart failure, hypertension, LV thrombus on Eliquis therapy, chronic kidney disease, abscess to her abdomen, methamphetamine abuse and obesity. 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 She does state that she was recently hospitalized at [facility] where she underwent a coronary angiogram with left heart catheterization about one week ago. She is a very poor historian and not sure what the findings were. Past Medical History Past medical history reviewed. No other significant than mentioned above. Past Surgical History x2 Family History: Diabetes mellitus G8 MOTHER FH: CHF (congestive heart failure) G8 FATHER Hypertension G8 MOTHER Family History Family history reviewed. Social History Patient reports history of methamphetamine use, last time approximately two weeks ago Denies any tobacco use Denies alcohol use Allergies: Coded Allergies: NO KNOWN ALLERGIES (Unverified , 01/18/25) Home Meds Active Scripts Losartan Potassium (Losartan Potassium) 25 Mg Tab, 25 MG PO DAILY for 30 Days, #30 TAB Prov:AGUSTIN LE MD 01/25/25 Carvedilol (COREG) 12.5 Mg Tab, 12.5 MG PO Q12HR for 30 Days, #60 TAB Prov:AGUSTIN LE MD 01/25/25 Apixaban Base (ELIQUIS) 5 Mg Tab, 5 MG PO BID for 30 Days, #60 TAB Prov:AGUSTIN LE MD 01/25/25 Amoxicillin & Pot Clavulanate (AUGMENTIN TABLET) 875 Mg Tb, 875 MG PO BID for 10 Days, #20 TAB Prov:AGUSTIN LE MD 01/25/25 Reported Medications Aspirin (Aspir-81) 81 Mg Tab, 1 TAB PO DAILY, #30 TAB 5 Refills 01/19/25 Furosemide (Lasix) 40 Mg Tab, 40 MG PO, TAB 01/19/25 Home Meds Home medications reviewed. Current Medications Current Medications Medications (Trade) Dose Ordered Sig/Hernán Route PRN Reason Start Time Stop Time Status Last Admin Enoxaparin Sodium (Lovenox) 40 mg DAILY SC 10/18/25 10:00 10/18/25 08:55 DC Aspirin (Ecotrin Enteric Coated Tablet) 81 mg DAILY PO 10/18/25 10:00 10/18/25 09:17 Carvedilol (Coreg Tablet) 12.5 mg Q12HR PO 10/18/25 10:00 10/18/25 09:17 Furosemide (Lasix Tablet) 40 mg DAILY PO 10/18/25 10:00 10/17/25 22:45 DC Furosemide (Lasix Injection) 40 mg DAILY IV 10/18/25 10:00 10/18/25 07:48 DC Ceftriaxone Sodium 50 ml @ 100 mls/hr DAILY@2100 IV 10/18/25 21:00 10/18/25 11:09 DC Furosemide (Lasix Injection) 40 mg BID IV 10/18/25 07:45 10/18/25 08:23 Spironolactone (Aldactone) 50 mg DAILY PO 10/18/25 10:00 10/18/25 08:22 Empaglifozin (Jardiance) 10 mg DAILY PO 10/18/25 10:00 10/18/25 09:18 Enoxaparin Sodium (Lovenox) 80 mg Q12HR SC 10/18/25 10:00 10/18/25 10:42 Metronidazole 100 ml @ 100 mls/hr Q8HR IV 10/18/25 22:00 Ceftriaxone Sodium 50 ml @ 100 mls/hr DAILY@09 IV 10/19/25 09:00 Acetaminophen/ Hydrocodone Bitart ([place] 7.5/325MG Tab) 1 tab Q6HP PRN PO MODERATE PAIN (4-6 PAIN SCALE) 10/18/25 13:45 10/18/25 14:01 Review of Systems Constitutional: No symptom reported Ears, Nose, & Throat: No symptom reported Eyes: No symptom reported Neurological: No symptoms reported Pulmonary/Respiratory: No symptoms reported Cardiovascular: No symptom reported Gastrointestinal: Abdominal pain Genitourinary: No symptom reported Musculoskeletal: No symptom reported Skin: No symptom reported Psychiatric: No symptom reported Endocrine: No symptom reported Hematologic/Lymphatic: No symptom reported Vital Signs Vital Signs Date Time Temp Pulse Resp B/P (MAP) Pulse Ox O2 Delivery O2 Flow Rate FiO2 10/18/25 12:32 98.0 75 16 93/62 (72) 98 98.0 10/18/25 12:13 Room Air* 0 21 Physical Exam General Appearance: Cooperative. Well-developed. Well-nourished. No acute distress. Pulmonary/Respiratory: Clear, bilateral breaths sounds. Cardiovascular/Chest: Regular rate and rhythm. Peripheral Pulses: 2+ Radial (R). 2+ Radial (L). 2+ Pedal (R). 2+ Pedal (L) Abdominal Exam: Normal bowel sounds. Ankle Exam: Negative ankle edema Lower extremities: Negative lower extremity edema Neuro/Mental Status: A/OX4, coherent. Thoughts/Psych: Normal thought pattern. Appropriate mood and affect. Good judgment and insight. Appearance: No acute distress. Skin Exam: Normal inspection. Normal color. Warm and dry. Labs/Diagnostic Data Labs Test 10/18/25 00:45 10/18/25 00:42 10/18/25 00:15 10/17/25 21:24 Range/Units Urine Color Colorless Yellow Urine Clarity Clear Clear Urine pH 7.0 5.0-9.0 Urine Specific [place] 1.006 1.001-1.035 Urine Protein Negative Negative Urine Ketones Negative Negative Urine Blood Negative Negative /uL Urine Nitrite Negative Negative Urine Bilirubin Negative Negative Urine Urobilinogen Normal Negative mg/dL Urine Leukocyte Esterase 2+ Negative /uL Urine RBC 1 0 - 4 /hpf Urine Microscopic WBC 29 H 0-5 /HPF Urine Squamous Epithelial Cells None seen <5 /hpf Urine Bacteria None seen None Seen /hpf Urine Glucose Normal Normal mg/dL Urine Test Negative Negative Urine Opiates Screen Neg NEGATIVE Urine Fentanyl Screen Neg NEGATIVE Urine Barbiturates Screen Neg NEGATIVE Urine Phencyclidine Screen Neg NEGATIVE Urine Amphetamines Screen Neg NEGATIVE Urine Benzodiazepines Screen Neg NEGATIVE Urine Cocaine Screen Neg NEGATIVE Urine Cannabinoids Screen Neg NEGATIVE Influenza Type A Antigen Negative Negative Influenza Type B Antigen Negative Negative SARS-CoV-2 Antigen (Rapid) Negative NEGATIVE Troponin I High Sensitivity 92 *H </=34 ng/L Total Bilirubin 1.6 H 0.2-1.0 mg/dL Direct Bilirubin 1.0 H <0.3 mg/dL Aspartate Amino Transferase (AST) 60 H 13-40 U/L Alanine Aminotransferase (ALT) 51 H 7-40 U/L Alkaline Phosphatase 257 H 46-116 U/L Total Protein 7.7 5.7-8.2 g/dL Albumin 3.6 3.2-4.8 g/dL Test 10/17/25 20:37 Range/Units White Blood Count 6.8 4.4-10.8 10^3/uL Red Blood Count 3.43 L 4.0-5.20 10^6/uL Hemoglobin 10.2 L 12.2-16.2 g/dL Hematocrit 32.0 L 36.0-46.0 % Mean Corpuscular Volume 93.5 80.0-100.0 fL Mean Corpuscular Hemoglobin 29.8 28.0-32.0 pg Mean Corpuscular Hemoglobin Concent 31.8 L 32.0-36.0 g/dL Red Cell Distribution Width 22.2 H 11.8-14.3 % Platelet Count 434 140-450 10^3/uL Mean Platelet Volume 8.4 6.9-10.8 fL Neutrophils (%) (Auto) 66.4 37.0-80.0 % Lymphocytes (%) (Auto) 19.8 10.0-50.0 % Monocytes (%) (Auto) 8.7 0.0-12.0 % Eosinophils (%) (Auto) 3.6 0.0-7.0 % Basophils (%) (Auto) 1.5 0.0-2.0 % Neutrophils # (Auto) 4.5 1.6-8.6 10 ^3/uL Lymphocytes # (Auto) 1.3 0.4-5.4 10 ^3/uL Monocytes # (Auto) 0.6 0-1.3 10 ^3/uL Eosinophils # (Auto) 0.2 0-0.8 10 ^3/uL Basophils # (Auto) 0.1 0-0.2 10 ^3/uL Nucleated Red Blood Cells 1.0 % Prothrombin Time 14.0 H 9.3-11.8 sec Prothrombin Time INR 1.36 H 0.9-1.15 Activated Partial Thromboplast Time 25.7 24.5-34.5 SEC Sodium Level 137 136-145 mmol/L Potassium Level 3.7 3.5-5.1 mmol/L Chloride Level 100 98-107 mmol/L Carbon Dioxide Level 25 20-31 mmol/L Anion Gap 12 5-15 Blood Urea Nitrogen 31 H 9-23 mg/dL Creatinine 1.42 H 0.550-1.02 mg/dL Glomerular Filtration Rate Calc 48 >90 mL/min BUN/Creatinine Ratio 21.8 H 10.0-20.0 Serum Glucose 78 74-106 mg/dL Calcium Level 9.1 8.7-10.4 mg/dL B-Type Natriuretic Peptide > 5000.00 0-100 pg/mL Lipase 63 H 12-53 U/L Assessment Acute on chronic decompensated HFrEF, NYHA class III NSTEMI Hypertension Acute cholelithiasis History of LV thrombus (on Eliquis) Severe mitral and tricuspid valve regurgitation Chronic kidney disease Liver cirrhosis Transaminitis History methamphetamine abuse Plan/Recommendation We will continue with the following plan/recommendations (Dr. Segundo): * Transthoracic echocardiogram to evaluate cardiac function * Previous transthoracic echocardiogram from 01/19/2025 reveals an EF of 10% with LV thrombus * LV thrombus: Continue Eliquis therapy. (Therapeutic Lovenox while inpatient pending possible procedure) Coumadin indicated per guidelines, continue with Eliquis therapy as the patient was previously initiated on. * Initiate guideline directed medical therapy for CHF as tolerated * Consider ARNI with improved renal function * Strict intake and output, daily weights, maintain fluid restriction * Preload and afterload reduction * Aggressive diuresis as tolerated * Close Cardiac surveillance The patient mentions that she was recently seen and admitted to [facility] in [place]. She describes undergoing a coronary angiogram about one week ago at that facility. She is a very poor historian and unable to recall if there were any stent placement. We will obtain medical records from that facility for further information. Further recommendations per clinical course and progression. Thank you for allowing us to care for this patient. Please call with any questions or concerns. Critical care time spent: 42 minutes This medical document was created using an electronic medical record system with voice recognition software and computerized dictation system. Although this document has been carefully reviewed, there might still be some phonetic and typographical errors. Occasional wrong-word or ``sound-alike substitutions may have occurred due to the inherent limitations of voice recognition software. These areas are purely typographical due to imperfections of the software programs and do not reflect any compromise in the patient's medical care. Please read the chart carefully and recognize, using context, where these substitutions have occurred. Plan discussed with: Patient NYHA Physical activity limitations: Class3(Marked) ordinary (activity causes symtoms) Date of Service: Oct 18, 2025 Billing Provider: RUDI NEWTON Cardiology Common Codes: 58800-[id number] INP/OBS CARE (High) Cardiology Consultation Codes: [id number] CONSULT <45MIN RUDI NEWTON Oct 18, 2025 15:36
[2025-10-18 17:11] VITALS: BP 107/77; PULSE 79; RESP 16; O2SAT 97
[2025-10-18 20:00] VITALS: PULSE 75
[2025-10-18 21:00] VITALS: BP 116/82; PULSE 83; RESP 17; TEMP 98.3; O2SAT 96
[2025-10-19] VITALS (8 sets, daily range): BP systolic 99–119; BP diastolic 73–84; PULSE 70–81; RESP 17–19; TEMP 96.4–98.2; O2SAT 95–100
[2025-10-19 06:19] LABS: Alanine Aminotransferase 35 U/L (7-40); Anion Gap 13 (5-15); BUN/Creatinine Ratio 22.8 (10.0-20.0); Calcium 9.0 mg/dL (8.7-10.4); Carbon Dioxide 25 mmol/L (20-31); Chloride 103 mmol/L (98-107); Potassium 3.5 mmol/L (3.5-5.1); Sodium 141 mmol/L (136-145); Total Protein 7.2 g/dL (5.7-8.2)
[2025-10-19 06:20] LABS: Albumin 3.3 g/dL (3.2-4.8); Hematocrit 34.0 % (36.0-46.0); Hemoglobin 10.7 g/dL (12.2-16.2); Mean Corpuscular Hemoglobin 29.2 pg (28.0-32.0); Mean Corpuscular Volume 92.9 fL (80.0-100.0); Nucleated Red Blood Cells % 0.5 %
[2025-10-19 06:34] LABS: Alkaline Phosphatase 185 U/L (46-116); Bilirubin, Total 1.4 mg/dL (0.2-1.0); Blood Urea Nitrogen 29 mg/dL (9-23); Glucose 67 mg/dL (74-106)
--- NOTE | 2025-10-19 11:11 | DVHSR ---
APPROVED REPORT EXAM: Two-dimensional and M-mode echocardiogram with Doppler, color Doppler and Bubble Study. Blood Pressure: 117/43 mmHg INDICATION Heart Failure RISK FACTORS Height: 5'6", Weight: 169 DIMENSIONS LVDd 6.7 (3.8-5.7cm) LA (2D) 4.7 (1.9-4.0cm) Aortic Root 2.6 (2.0-3.7cm) LVDs 6.6 (2.5-4.0cm) LA (MM) (1.9-4.0cm) Aortic Cusp Exc 1.5 (1.5-2.0cm) EF (%) 2.0 (55-70%) Rt. Atrium 6.0 (1.9-4.0cm) Asc. Aorta 2.5 cm IVSd 1.2 (0.7-1.1cm) RV (D) 4.4 (1.8-2.4cm) PWd 1.2 (0.7-1.1cm) Mitral Valve Mitral Mitral Stenosis E wave 1.08m/s MV Mean GR. mmHg E/A ratio 0.0 2D MVA cm2 Aortic Valve Aortic Valve Aortic Stenosis V1 0.45m/s AO Mean GR. 3mmHg V2 1.06m/s AO Peak GR. 4mmHg LVOT Diameter 1.8 (1.8-2.4cm) Doppler SANYA 1.08cm2 Pulmonic Valve V2 0.77m/s Tricuspid Valve TR Velocity 2.08m/s RVSP 33mmHg Conclusion Good study. Sinus rhythm. Biatrial and biventricular enlargement. Valves appear to be structurally normal. Left ventricular function is severely diminished. EF is less than 10%. RV function is at about 40%. There is moderate mitral insufficiency with severe tricuspid insufficiency. Moderate pulmonic insufficiency. Right ventricular systolic pressure is 30 mmHg however there is a pressure and volume overload consistent with pulmonary hypertension. Etiology is possibly secondary to left ventricular dysfunction. Small pericardial effusion not hemodynamically significant. No intracardiac masses thrombi or vegetations discernible.
--- NOTE | 2025-10-19 13:57 | DVHPN2 ---
Consult Progress Note Subjective Other Systems: The patient is in normal sinus rhythm on lunchroom monitor Denies any cardiac symptoms at time of assessment. Objective vital signs Vital Sign Date Time Temp Pulse Resp B/P (MAP) Pulse Ox O2 Delivery O2 Flow Rate FiO2 10/19/25 09:46 74 10/19/25 09:00 18 119/83 (95) 95 10/19/25 07:45 Room Air* 0 21 10/19/25 05:00 97.5 97.5 Total Intake and Output 10/18/25 10/18/25 10/19/25 15:00 23:00 07:00 Intake Total 100 ml 0 ml Balance 100 ml 0 ml medications Current Medications Medications Dose Ordered Sig/Hernán Route Start Time Stop Time Status Last Admin Dose Admin Aspirin 81 mg DAILY PO 10/18/25 10:00 10/19/25 08:46 81 MG Carvedilol 12.5 mg Q12HR PO 10/18/25 10:00 10/19/25 08:46 12.5 MG Furosemide 40 mg BID IV 10/18/25 07:45 10/19/25 08:46 40 MG Spironolactone 50 mg DAILY PO 10/18/25 10:00 10/19/25 08:46 50 MG Empaglifozin 10 mg DAILY PO 10/18/25 10:00 10/19/25 08:45 10 MG Enoxaparin Sodium 80 mg Q12HR SC 10/18/25 10:00 10/19/25 08:45 80 MG Metronidazole 100 ml @ 100 mls/hr Q8HR IV 10/18/25 22:00 10/19/25 05:21 100 MLS/HR Ceftriaxone Sodium 50 ml @ 100 mls/hr DAILY@09 IV 10/19/25 09:00 10/19/25 08:47 100 MLS/HR Acetaminophen/ Hydrocodone Bitart 1 tab Q6HP PRN PO 10/18/25 13:45 10/19/25 08:45 1 TAB Examination: GENERAL:Normal, LUNGS:Normal, CVS:Normal, NEURO:Normal laboratory and microbiology Laboratory Tests 10/19/25 04:46 Test 10/19/25 04:46 Range/Units Serum Glucose 67 L 74-106 mg/dL Problem List/Assessment/Plan Problem List/Assessment/Plan Acute on chronic decompensated HFrEF, NYHA class III NSTEMI Hypertension Acute cholelithiasis History of LV thrombus (on Eliquis) Severe mitral and tricuspid valve regurgitation Urinary tract infection Chronic kidney disease Liver cirrhosis Transaminitis History methamphetamine abuse Plan/Recommendations (Dr. Segundo): * Transthoracic echocardiogram reveals EF 10% * Previous transthoracic echocardiogram from 01/19/2025 reveals an EF of 10% with LV thrombus * LV thrombus: Continue Eliquis therapy. (Therapeutic Lovenox while inpatient pending possible procedure) Coumadin indicated per guidelines, continue with Eliquis therapy as the patient was previously initiated on. * Continue guideline directed medical therapy for CHF as tolerated * Consider ARNI with improved renal function * Hold SGLT2i given acute UTI * Strict intake and output, daily weights, maintain fluid restriction * Preload and afterload reduction * Aggressive diuresis as tolerated * Close Cardiac surveillance The patient mentions that she was recently seen and admitted to [facility] in [place]. She describes undergoing a coronary angiogram about one week ago at that facility. She is a very poor historian and unable to recall if there were any stent placement. We will obtain medical records from that facility for further information. Further recommendations per clinical course and progression. Thank you for allowing us to care for this patient. Please call with any questions or concerns. This medical document was created using an electronic medical record system with voice recognition software and computerized dictation system. Although this document has been carefully reviewed, there might still be some phonetic and typographical errors. Occasional wrong-word or ``sound-alike substitutions may have occurred due to the inherent limitations of voice recognition software. These areas are purely typographical due to imperfections of the software programs and do not reflect any compromise in the patient's medical care. Please read the chart carefully and recognize, using context, where these substitutions have occurred. Plan discussed with: Patient Date of Service: Oct 19, 2025 Billing Provider: RUDI NEWTON Common Visit Codes: [id number] INP/OBS CARE(HIGH) RUDI NEWTON Oct 19, 2025 13:57
--- NOTE | 2025-10-19 14:03 | ECG ---
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
--- NOTE | 2025-10-19 15:48 | DVH ---
Procedure: NM NM HIDA SCAN Exam Date: 10/19/2025 02:06 PM Clinical History: cholecystitis Comparison Study: 10/18/2025 Nuclear Medicine Hepatobiliary Scan. Technique: Following the intravenous administration of 4.5 mCi of technetium 99m labeled Choletec multiple planar abdominal planar images were obtained in anterior projection in 1 minute intervals for45 minutes . Right lateral images were obtained at 6 60 minutes after injection. Findings: The liver appears grossly normal in size. There is no abnormal persistence of the cardiac or blood pool activity. There is prompt visualization of the gallbladder and excretion of activity into the small bowel. The gallbladder is visualized at approximately 10 minutes. Impression: Patent cystic duct.
--- NOTE | 2025-10-19 16:17 | DVHPNRES ---
Progress Note Date Seen: Oct 19, 2025 Resident Creating Document: SANDRA PANCHAL RESIDENT Medical Necessity Reason Pt with a Central, PICC or Fol: No Subjective Review of Systems Patient seen at bedside. HIDA scan ordered. Diet changed to NPO. Gretel Paerce is a 40-year-old female with past medical history of congestive heart failure with ejection fraction of 10%, dyslipidemia, left ventricular thrombus, hypertension, anxiety, iron-deficiency anemia presented with complaints of abdominal pain Since yesterday. Patient rates the pain 10 on 10 in intensity, sharp in quality, radiating to the chest, increasing on exercising. She also complains of associated shortness of breath and generalized weakness. She denies any fever, chills. Patient takes Lasix at home. She reports cough for the last few weeks with green sputum and constipation. Patient reports that an angiogram was done last week at another facility. PMHx: congestive heart failure with ejection fraction of 10%, dyslipidemia, left ventricular thrombus, hypertension, anxiety, iron-deficiency anemia PSHx: none Family history: nonrelevant Social history: denies smoking or alcohol. Admits to methamphetamine and marijuana use, last use 2 weeks back Home medication: Lasix 20 mg, Eliquis, aspirin Allergic history: known allergies General: complains of generalized weakness HEENT: No headaches, visiual changes, hearing loss, tinnitus, nasal congestion and discharge, and sore throat. Cardiovascular: Denies chest pain, palpitations, dyspnea on exertion, orthopnea, or claudication. Respiratory: No cough, and wheezing. Gastrointestinal:Complains of abdominal pain Genitourinary: No dysuria, hematuria, discharge, frequency, urgency, nocturia, incontinence, and urinary retention. Endocrine: No heat or cold intolerance, polydipsia, polyuria, and polyphagia. Neurological: No dizziness, extremity weakness and numbness, tremors, gait disturbance, seizures, and memory impairment. Psychiatric: Denies depression, anxiety,or insomnia. Musculoskeletal: Denies neck pain, stiffness and swelling, back pain, muscle weakness, joint pain, stiffness, swelling, or limited range of motion. Skin: No rashes, itching, skin lesion, changes in hair, nail, skin texture and breast. Hematologic/Lymphatic: Denies easy bruising, bleeding tendencies, or lymph node enlargement. Objective vital signs Vital Sign Date Time Temp Pulse Resp B/P (MAP) Pulse Ox O2 Delivery O2 Flow Rate FiO2 10/19/25 13:00 96.4 74 18 107/73 (84) 100 96.4 10/19/25 07:45 Room Air* 0 21 Total Intake and Output 10/18/25 10/18/25 10/19/25 15:00 23:00 07:00 Intake Total 100 ml 0 ml Balance 100 ml 0 ml medications Current Medications Medications Dose Ordered Sig/Hernán Route Start Time Stop Time Status Last Admin Dose Admin Aspirin 81 mg DAILY PO 10/18/25 10:00 10/19/25 08:46 81 MG Carvedilol 12.5 mg Q12HR PO 10/18/25 10:00 10/19/25 08:46 12.5 MG Furosemide 40 mg BID IV 10/18/25 07:45 10/19/25 08:46 40 MG Spironolactone 50 mg DAILY PO 10/18/25 10:00 10/19/25 08:46 50 MG Enoxaparin Sodium 80 mg Q12HR SC 10/18/25 10:00 10/19/25 08:45 80 MG Metronidazole 100 ml @ 100 mls/hr Q8HR IV 10/18/25 22:00 10/19/25 05:21 100 MLS/HR Ceftriaxone Sodium 50 ml @ 100 mls/hr DAILY@09 IV 10/19/25 09:00 10/19/25 08:47 100 MLS/HR Acetaminophen/ Hydrocodone Bitart 1 tab Q6HP PRN PO 10/18/25 13:45 10/19/25 08:45 1 TAB Examination General Appearance: Alert, Oriented X3, Cooperative, No acute distress HEENT: Atraumatic, PERRLA, EOMI, Mucous membrane moist/pink Respiratory: Clear to auscultation, Normal air movement Cardiovascular: Regular rate, Normal S1, Normal S2, No murmurs, no chest wall tenderness Abdominal:Tenderness the epigastric region, no guarding or rigidity. Extremities: No clubbing, No cyanosis, No edema, Normal pulses, No tenderness/swelling Skin: No rashes, No breakdown, No significant lesion Neuro: Normal gait, Normal speech, Strength at 5/5 X4 ext, Normal tone, Sensation intact, Cranial nerves 3-12 NL, Reflexes 2+ Psych/Mental Status: Mental status NL, Mood NL laboratory and microbiology Laboratory Tests 10/19/25 04:46 Test 10/19/25 04:46 Range/Units Serum Glucose 67 L 74-106 mg/dL Microbiology Date/Time Source Procedure Growth Status 10/18/25 00:45 Voided Urine Urine Culture - Preliminary Resulted Problem List/Assessment/Plan Problem List/Assessment/Plan Assessment/Plan Chest pain rule out ACS Acute exacerbation of systolic heart failure EF 10% Severe mitral and tricuspid regurgitation LV thrombus Right pleural effusion Cardiomegaly Essential hypertension CXR: Cardiomegaly Echocardiography on 01/19/2025: Severe LV dysfunction, LV ejection fraction 10%, dilated LV marked, LV thrombus noted adjacent to LV septum, RV dysfunction noted, severe mitral regurgitation, severe tricuspid regurgitation, trivial to small pericardial effusion not, biatrial enlargement EKG: T-wave inversions in the anterior leads Troponin: 90s Monitor EKG and troponin Morphine Nitroglycerin Aspirin loading dose received Carvedilol 12.5 mg started Furosemide 40 mg IV daily Held home medication Eliquis due to inpatient status, started therapeutic Lovenox. cardiology consult Acute complicated UTI IV ceftriaxone daily Cholelithiasis Rule out Acute cholecystitis Lipase 63, mildly elevated Abdominal ultrasound:Cholelithiasis and tumefactive sludge within the gallbladder, with marked gallbladder wall thickening. Negative sonographic Augustin's sign. Acute cholecystitis can not be excluded. Consider HIDA scan and surgical consult surgery consult HIDA scan Cirrhosis with sequelae of portal venous hypertension Abdominal ascites due to above Transaminitis due to above Abdominal ultrasound: Ascites, bidirectional main portal venous flow Abdomen pelvis CT: Reviewed Dyslipidemia Follow lipid profile Anxiety Follow up with PCP on discharge GI prophylaxis: Pantoprazole DVT prophylaxis: Lovenox Diet: NPO Goals of care Full code status Case discussed with Dr. Baig Plan discussed with: Patient My Orders My Orders Orders - SANDRA PANCHAL Procedure Category Date Status Time Npo (Nothing By DIET 10/19/25 Transmitted Mouth) Diet Lunch Nm Hida Scan NM 10/19/25 Resulted 12:59 Date of Service: Oct 19, 2025 Billing Provider: SONAL REARDON MD Common Visit Codes: [id number] INP/OBS CARE(HIGH) SANDRA PANCHAL Oct 19, 2025 16:17
[2025-10-20] VITALS (9 sets, daily range): BP systolic 93–111; BP diastolic 60–82; PULSE 69–78; RESP 16–18; TEMP 97–98.3; O2SAT 97–99
[2025-10-20 06:29] LABS: Hematocrit 33.0 % (36.0-46.0); Hemoglobin 10.3 g/dL (12.2-16.2); Mean Corpuscular Hemoglobin 29.0 pg (28.0-32.0); Mean Corpuscular Volume 93.2 fL (80.0-100.0); Nucleated Red Blood Cells % 1.0 %
[2025-10-20 06:50] LABS: Alanine Aminotransferase 33 U/L (7-40); Anion Gap 10 (5-15); BUN/Creatinine Ratio 19.6 (10.0-20.0); Carbon Dioxide 25 mmol/L (20-31); Chloride 101 mmol/L (98-107); Glucose 84 mg/dL (74-106); Potassium 3.7 mmol/L (3.5-5.1); Sodium 136 mmol/L (136-145); Total Protein 7.0 g/dL (5.7-8.2)
[2025-10-20 06:51] LABS: Bilirubin, Total 1.1 mg/dL (0.2-1.0)
[2025-10-20 07:07] LABS: Albumin 3.1 g/dL (3.2-4.8); Alkaline Phosphatase 176 U/L (46-116); Blood Urea Nitrogen 29 mg/dL (9-23); Calcium 8.7 mg/dL (8.7-10.4)
--- NOTE | 2025-10-20 10:40 | DVHPN2 ---
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 The patient denies any cardiac symptoms at time of assessment. Objective vital signs Vital Sign Date Time Temp Pulse Resp B/P (MAP) Pulse Ox O2 Delivery O2 Flow Rate FiO2 10/20/25 09:14 71 103/77 10/20/25 09:00 97.5 16 98 97.5 10/20/25 08:00 Room Air* 0 21 Total Intake and Output 10/19/25 10/19/25 10/20/25 15:00 23:00 07:00 Intake Total 50 ml 750 ml 600 ml Balance 50 ml 750 ml 600 ml medications Current Medications Medications Dose Ordered Sig/Hernán Route Start Time Stop Time Status Last Admin Dose Admin Aspirin 81 mg DAILY PO 10/18/25 10:00 10/20/25 09:13 81 MG Carvedilol 12.5 mg Q12HR PO 10/18/25 10:00 10/20/25 09:14 12.5 MG Furosemide 40 mg BID IV 10/18/25 07:45 10/20/25 09:13 40 MG Spironolactone 50 mg DAILY PO 10/18/25 10:00 10/20/25 09:13 50 MG Enoxaparin Sodium 80 mg Q12HR SC 10/18/25 10:00 10/20/25 09:12 80 MG Metronidazole 100 ml @ 100 mls/hr Q8HR IV 10/18/25 22:00 10/20/25 05:05 100 MLS/HR Ceftriaxone Sodium 50 ml @ 100 mls/hr DAILY@09 IV 10/19/25 09:00 10/20/25 09:12 100 MLS/HR Acetaminophen/ Hydrocodone Bitart 1 tab Q6HP PRN PO 10/18/25 13:45 10/20/25 06:14 1 TAB Examination: GENERAL:Normal, LUNGS:Normal, CVS:Normal, NEURO:Normal laboratory and microbiology Laboratory Tests 10/20/25 05:21 Test 10/20/25 05:21 Range/Units Serum Glucose 84 74-106 mg/dL Problem List/Assessment/Plan Problem List/Assessment/Plan Acute on chronic decompensated HFrEF, NYHA class III NSTEMI Hypertension Rule out acute cholelithiasis History of LV thrombus (on Eliquis) Severe mitral and tricuspid valve regurgitation Urinary tract infection Chronic kidney disease Liver cirrhosis Transaminitis History methamphetamine abuse Plan/Recommendations (Dr. Segundo): * Transthoracic echocardiogram reveals EF 10% * Previous transthoracic echocardiogram from 01/19/2025 reveals an EF of 10% with LV thrombus * LV thrombus: Continue Eliquis therapy. (Therapeutic Lovenox while inpatient pending possible procedure) Coumadin indicated per guidelines, continue with Eliquis therapy as the patient was previously initiated on. * Continue guideline directed medical therapy for CHF as tolerated * Consider ARNI with improved renal function * Hold SGLT2i given acute UTI * Strict intake and output, daily weights, maintain fluid restriction * Preload and afterload reduction * Aggressive diuresis as tolerated * Close Cardiac surveillance * Surgical team evaluation The patient mentions that she was recently seen and admitted to [facility] in [place]. She describes undergoing a coronary angiogram about one week ago at that facility. She is a very poor historian and unable to recall if there were any stent placement. We will obtain medical records from that facility for further information. Medical records release form has been faxed over...... We are awaiting results. Further recommendations per clinical course and progression. Thank you for allowing us to care for this patient. Please call with any questions or concerns. This medical document was created using an electronic medical record system with voice recognition software and computerized dictation system. Although this document has been carefully reviewed, there might still be some phonetic and typographical errors. Occasional wrong-word or ``sound-alike substitutions may have occurred due to the inherent limitations of voice recognition software. These areas are purely typographical due to imperfections of the software programs and do not reflect any compromise in the patient's medical care. Please read the chart carefully and recognize, using context, where these substitutions have occurred. Plan discussed with: Patient Date of Service: Oct 20, 2025 Billing Provider: RUDI NEWTON Common Visit Codes: [id number] INP/OBS CARE(HIGH) RUDI NEWTON Oct 20, 2025 10:40
[2025-10-20] MEDS ORDERED: EMPA1TAB PO (13:45)
[2025-10-20] MEDS ORDERED: AUG875T PO (13:45)
[2025-10-20] MEDS ORDERED: SPIR25TA8 PO (13:45)
--- NOTE | 2025-10-20 15:26 | DVHPNRES ---
Progress Note Date Seen: Oct 20, 2025 Resident Creating Document: SANDRA PANCHAL RESIDENT Medical Necessity Reason Pt with a Central, PICC or Fol: No Subjective Review of Systems Patient seen at bedside. Shortness of breath improving. Gretel Pearce is a 40-year-old female with past medical history of congestive heart failure with ejection fraction of 10%, dyslipidemia, left ventricular thrombus, hypertension, anxiety, iron-deficiency anemia presented with complaints of abdominal pain Since yesterday. Patient rates the pain 10 on 10 in intensity, sharp in quality, radiating to the chest, increasing on exercising. She also complains of associated shortness of breath and generalized weakness. She denies any fever, chills. Patient takes Lasix at home. She reports cough for the last few weeks with green sputum and constipation. Patient reports that an angiogram was done last week at another facility. PMHx: congestive heart failure with ejection fraction of 10%, dyslipidemia, left ventricular thrombus, hypertension, anxiety, iron-deficiency anemia PSHx: none Family history: nonrelevant Social history: denies smoking or alcohol. Admits to methamphetamine and marijuana use, last use 2 weeks back Home medication: Lasix 20 mg, Eliquis, aspirin Allergic history: known allergies General: complains of generalized weakness HEENT: No headaches, visiual changes, hearing loss, tinnitus, nasal congestion and discharge, and sore throat. Cardiovascular: Denies chest pain, palpitations, dyspnea on exertion, orthopnea, or claudication. Respiratory: No cough, and wheezing. Gastrointestinal:Complains of abdominal pain Genitourinary: No dysuria, hematuria, discharge, frequency, urgency, nocturia, incontinence, and urinary retention. Endocrine: No heat or cold intolerance, polydipsia, polyuria, and polyphagia. Neurological: No dizziness, extremity weakness and numbness, tremors, gait disturbance, seizures, and memory impairment. Psychiatric: Denies depression, anxiety,or insomnia. Musculoskeletal: Denies neck pain, stiffness and swelling, back pain, muscle weakness, joint pain, stiffness, swelling, or limited range of motion. Skin: No rashes, itching, skin lesion, changes in hair, nail, skin texture and breast. Hematologic/Lymphatic: Denies easy bruising, bleeding tendencies, or lymph node enlargement. Objective vital signs Vital Sign Date Time Temp Pulse Resp B/P (MAP) Pulse Ox O2 Delivery O2 Flow Rate FiO2 10/20/25 13:00 97.0 71 18 105/80 (88) 97 97.0 10/20/25 08:00 Room Air* 0 21 Total Intake and Output 10/19/25 10/19/25 10/20/25 15:00 23:00 07:00 Intake Total 50 ml 750 ml 600 ml Balance 50 ml 750 ml 600 ml medications Current Medications Medications Dose Ordered Sig/Hernán Route Start Time Stop Time Status Last Admin Dose Admin Aspirin 81 mg DAILY PO 10/18/25 10:00 10/20/25 09:13 81 MG Carvedilol 12.5 mg Q12HR PO 10/18/25 10:00 10/20/25 09:14 12.5 MG Furosemide 40 mg BID IV 10/18/25 07:45 10/20/25 09:13 40 MG Spironolactone 50 mg DAILY PO 10/18/25 10:00 10/20/25 09:13 50 MG Enoxaparin Sodium 80 mg Q12HR SC 10/18/25 10:00 10/20/25 09:12 80 MG Metronidazole 100 ml @ 100 mls/hr Q8HR IV 10/18/25 22:00 10/20/25 14:02 100 MLS/HR Ceftriaxone Sodium 50 ml @ 100 mls/hr DAILY@09 IV 10/19/25 09:00 10/20/25 09:12 100 MLS/HR Acetaminophen/ Hydrocodone Bitart 1 tab Q6HP PRN PO 10/18/25 13:45 10/20/25 14:09 1 TAB Examination General Appearance: Alert, Oriented X3, Cooperative, No acute distress HEENT: Atraumatic, PERRLA, EOMI, Mucous membrane moist/pink Respiratory: Clear to auscultation, Normal air movement Cardiovascular: Regular rate, Normal S1, Normal S2, No murmurs, no chest wall tenderness Abdominal:Tenderness the epigastric region, no guarding or rigidity. Extremities: No clubbing, No cyanosis, No edema, Normal pulses, No tenderness/swelling Skin: No rashes, No breakdown, No significant lesion Neuro: Normal gait, Normal speech, Strength at 5/5 X4 ext, Normal tone, Sensation intact, Cranial nerves 3-12 NL, Reflexes 2+ Psych/Mental Status: Mental status NL, Mood NL laboratory and microbiology Laboratory Tests 10/20/25 05:21 Test 10/20/25 05:21 Range/Units Serum Glucose 84 74-106 mg/dL Microbiology Date/Time Source Procedure Growth Status 10/18/25 00:45 Voided Urine Urine Culture - Preliminary Resulted Problem List/Assessment/Plan Problem List/Assessment/Plan Assessment/Plan Chest pain rule out ACS Acute exacerbation of systolic heart failure EF 10% Severe mitral and tricuspid regurgitation LV thrombus Right pleural effusion Cardiomegaly Essential hypertension CXR: Cardiomegaly Echocardiography on 01/19/2025: Severe LV dysfunction, LV ejection fraction 10%, dilated LV marked, LV thrombus noted adjacent to LV septum, RV dysfunction noted, severe mitral regurgitation, severe tricuspid regurgitation, trivial to small pericardial effusion not, biatrial enlargement EKG: T-wave inversions in the anterior leads Troponin: 90s Monitor EKG and troponin Morphine Nitroglycerin Aspirin loading dose received Carvedilol 12.5 mg started Furosemide 40 mg IV daily Held home medication Eliquis due to inpatient status, started therapeutic Lovenox. cardiology consult Acute complicated UTI IV ceftriaxone daily Cholelithiasis Rule out Acute cholecystitis Lipase 63, mildly elevated Abdominal ultrasound:Cholelithiasis and tumefactive sludge within the gallbladder, with marked gallbladder wall thickening. Negative sonographic Augustin's sign. Acute cholecystitis can not be excluded. Consider HIDA scan and surgical consult surgery consult HIDA scan Cirrhosis with sequelae of portal venous hypertension Abdominal ascites due to above Transaminitis due to above Abdominal ultrasound: Ascites, bidirectional main portal venous flow Abdomen pelvis CT: Reviewed Dyslipidemia Follow lipid profile Anxiety Follow up with PCP on discharge GI prophylaxis: Pantoprazole DVT prophylaxis: Lovenox Diet: NPO Goals of care Full code status Case discussed with Dr. Leonard Plan discussed with: Patient My Orders My Orders Orders - SANDRA PANCHAL RESIDENT Procedure Category Date Status Time Schedule For [facility] 10/20/25 In Process Clinic F/U 13:43 Date of Service: Oct 20, 2025 Billing Provider: DARON LEONARD DO Common Visit Codes: [id number] INP/OBS CARE(HIGH) SANDRA PANCHAL Oct 20, 2025 15:26
[2025-10-21 01:00] VITALS: BP 110/81; PULSE 85; RESP 17; TEMP 97.9; O2SAT 97
[2025-10-21 04:45] VITALS: BP 108/79; PULSE 82; RESP 17; TEMP 97.7; O2SAT 96
[2025-10-21 06:35] LABS: Hematocrit 32.5 % (36.0-46.0); Hemoglobin 10.3 g/dL (12.2-16.2); Mean Corpuscular Hemoglobin 29.5 pg (28.0-32.0); Mean Corpuscular Volume 92.7 fL (80.0-100.0); Nucleated Red Blood Cells % 1.9 %
[2025-10-21 06:56] LABS: Alanine Aminotransferase 30 U/L (7-40); Anion Gap 12 (5-15); BUN/Creatinine Ratio 22.0 (10.0-20.0); Carbon Dioxide 23 mmol/L (20-31); Chloride 100 mmol/L (98-107); Glucose 87 mg/dL (74-106); Potassium 3.8 mmol/L (3.5-5.1); Total Protein 7.0 g/dL (5.7-8.2)
[2025-10-21 06:57] LABS: Bilirubin, Total 1.1 mg/dL (0.2-1.0)
[2025-10-21 07:02] LABS: Albumin 3.1 g/dL (3.2-4.8); Alkaline Phosphatase 173 U/L (46-116); Blood Urea Nitrogen 31 mg/dL (9-23); Calcium 8.6 mg/dL (8.7-10.4); Sodium 135 mmol/L (136-145)
[2025-10-21 08:00] VITALS: PULSE 66; PULSE 68; O2SAT 100
[2025-10-21 09:00] VITALS: BP 105/46; PULSE 66; RESP 16; TEMP 96.7; O2SAT 98
[2025-10-21 13:00] VITALS: BP 111/81; PULSE 70; RESP 18; TEMP 96.9; O2SAT 98
--- NOTE | 2025-10-21 13:56 | DVHPN2 ---
Consult Progress Note Subjective Patient reports: Feels better Review of Systems: CVS:Normal (Denies chest pain, palpitation, shortness of breath), :Abnormal (Abdominal pain resolved.) Objective vital signs Vital Sign Date Time Temp Pulse Resp B/P (MAP) Pulse Ox O2 Delivery O2 Flow Rate FiO2 10/21/25 13:00 96.9 70 18 111/81 (91) 98 96.9 10/21/25 08:00 Room Air* 0 21 Total Intake and Output 10/20/25 10/20/25 10/21/25 15:00 23:00 07:00 Intake Total 50 ml 990 ml 800 ml Output Total 800 ml 1250 ml Balance -750 ml -260 ml 800 ml medications Current Medications Medications Dose Ordered Sig/Hernán Route Start Time Stop Time Status Last Admin Dose Admin Aspirin 81 mg DAILY PO 10/18/25 10:00 10/21/25 08:58 81 MG Carvedilol 12.5 mg Q12HR PO 10/18/25 10:00 10/20/25 22:58 12.5 MG Furosemide 40 mg BID IV 10/18/25 07:45 10/21/25 09:01 40 MG Spironolactone 50 mg DAILY PO 10/18/25 10:00 10/21/25 08:59 50 MG Enoxaparin Sodium 80 mg Q12HR SC 10/18/25 10:00 10/21/25 08:58 80 MG Metronidazole 100 ml @ 100 mls/hr Q8HR IV 10/18/25 22:00 10/21/25 05:14 100 MLS/HR Ceftriaxone Sodium 50 ml @ 100 mls/hr DAILY@09 IV 10/19/25 09:00 10/21/25 08:59 100 MLS/HR Acetaminophen/ Hydrocodone Bitart 1 tab Q6HP PRN PO 10/18/25 13:45 10/21/25 09:11 1 TAB Examination: CVS:Abnormal (Telemetry reviewed consistent with sinus rhythm at 72 beats per minute. No overnight events noted.) laboratory and microbiology Laboratory Tests 10/21/25 05:34 Test 10/21/25 05:34 Range/Units Serum Glucose 87 74-106 mg/dL Problem List/Assessment/Plan Problem List/Assessment/Plan * Transthoracic echocardiogram reveals EF 10% * Previous transthoracic echocardiogram from 01/19/2025 reveals an EF of 10% with LV thrombus * LV thrombus: Continue Eliquis therapy. (Therapeutic Lovenox while inpatient pending possible procedure) Coumadin indicated per guidelines, continue with Eliquis therapy as the patient was previously initiated on. * Continue guideline directed medical therapy for CHF as tolerated * Consider ARNI with improved renal function * Hold SGLT2i given acute UTI * Strict intake and output, daily weights, maintain fluid restriction * Preload and afterload reduction * Aggressive diuresis as tolerated * Close Cardiac surveillance * Surgical team evaluation The patient mentions that she was recently seen and admitted to [facility] in [place]. She describes undergoing a coronary angiogram about one week ago at that facility. She is a very poor historian and unable to recall if there were any stent placement. We will obtain medical records from that facility for further information. Medical records release form has been faxed over...... We are awaiting results. Further recommendations per clinical course and progression. Thank you for allowing us to care for this patient. Please call with any questions or concerns. Plan discussed with: Patient Date of Service: Oct 21, 2025 Billing Provider: KAROLINA CUADRA Common Visit Codes: [id number] INP/OBS CARE(HIGH), [id number] CARE 30-74 MIN KAROLINA CUADRA Oct 21, 2025 13:56
--- NOTE | 2025-10-21 15:43 | DVHDSRES ---
Discharge Summary Date of Admission Resident Creating Document: SANDRA PANCHAL RESIDENT Oct 17, 2025 at 22:30 Date of Discharge: Oct 20, 2025 Labs/Diagnostic Data: Laboratory Results Test 10/21/25 05:34 10/20/25 05:21 10/18/25 00:45 10/18/25 00:42 White Blood Count 4.8 10^3/uL (4.4-10.8) Red Blood Count 3.50 10^6/uL (4.0-5.20) Hemoglobin 10.3 g/dL (12.2-16.2) Hematocrit 32.5 % (36.0-46.0) Mean Corpuscular Volume 92.7 fL (80.0-100.0) Mean Corpuscular Hemoglobin 29.5 pg (28.0-32.0) Mean Corpuscular Hemoglobin Concent 31.8 g/dL (32.0-36.0) Red Cell Distribution Width 21.4 % (11.8-14.3) Platelet Count 371 10^3/uL (140-450) Mean Platelet Volume 8.6 fL (6.9-10.8) Neutrophils (%) (Auto) 57.4 % (37.0-80.0) Lymphocytes (%) (Auto) 26.8 % (10.0-50.0) Monocytes (%) (Auto) 10.7 % (0.0-12.0) Eosinophils (%) (Auto) 2.9 % (0.0-7.0) Basophils (%) (Auto) 2.2 % (0.0-2.0) Neutrophils # (Auto) 2.7 10 ^3/uL (1.6-8.6) Lymphocytes # (Auto) 1.3 10 ^3/uL (0.4-5.4) Monocytes # (Auto) 0.5 10 ^3/uL (0-1.3) Eosinophils # (Auto) 0.1 10 ^3/uL (0-0.8) Basophils # (Auto) 0.1 10 ^3/uL (0-0.2) Nucleated Red Blood Cells 1.9 % Sodium Level 135 mmol/L (136-145) Potassium Level 3.8 mmol/L (3.5-5.1) Chloride Level 100 mmol/L (98-107) Carbon Dioxide Level 23 mmol/L (20-31) Anion Gap 12 (5-15) Blood Urea Nitrogen 31 mg/dL (9-23) Creatinine 1.41 mg/dL (0.550-1.02) Glomerular Filtration Rate Calc 48 mL/min (>90) BUN/Creatinine Ratio 22.0 (10.0-20.0) Serum Glucose 87 mg/dL (74-106) Calcium Level 8.6 mg/dL (8.7-10.4) Total Bilirubin 1.1 mg/dL (0.2-1.0) Aspartate Amino Transferase (AST) 36 U/L (13-40) Alanine Aminotransferase (ALT) 30 U/L (7-40) Alkaline Phosphatase 173 U/L (46-116) Total Protein 7.0 g/dL (5.7-8.2) Albumin 3.1 g/dL (3.2-4.8) B-Type Natriuretic Peptide 4037.42 pg/mL (0-100) Urine Color Colorless (Yellow) Urine Clarity Clear (Clear) Urine pH 7.0 (5.0-9.0) Urine Specific [place] 1.006 (1.001-1.035) Urine Protein Negative (Negative) Urine Ketones Negative (Negative) Urine Blood Negative /uL (Negative) Urine Nitrite Negative (Negative) Urine Bilirubin Negative (Negative) Urine Urobilinogen Normal mg/dL (Negative) Urine Leukocyte Esterase 2+ /uL (Negative) Urine RBC 1 /hpf (0 - 4) Urine Microscopic WBC 29 /HPF (0-5) Urine Squamous Epithelial Cells None seen /hpf (<5) Urine Bacteria None seen /hpf (None Seen) Urine Glucose Normal mg/dL (Normal) Urine Test Negative (Negative) Urine Opiates Screen Neg (NEGATIVE) Urine Fentanyl Screen Neg (NEGATIVE) Urine Barbiturates Screen Neg (NEGATIVE) Urine Phencyclidine Screen Neg (NEGATIVE) Urine Amphetamines Screen Neg (NEGATIVE) Urine Benzodiazepines Screen Neg (NEGATIVE) Urine Cocaine Screen Neg (NEGATIVE) Urine Cannabinoids Screen Neg (NEGATIVE) Influenza Type A Antigen Negative (Negative) Influenza Type B Antigen Negative (Negative) SARS-CoV-2 Antigen (Rapid) Negative (NEGATIVE) Test 10/18/25 00:15 10/17/25 21:24 10/17/25 20:37 Troponin I High Sensitivity 92 ng/L (</=34) Direct Bilirubin 1.0 mg/dL (<0.3) Prothrombin Time 14.0 sec (9.3-11.8) Prothrombin Time INR 1.36 (0.9-1.15) Activated Partial Thromboplast Time 25.7 SEC (24.5-34.5) Lipase 63 U/L (12-53) Other Laboratory Tests 10/21/25 05:34 Brief Hx & Hospital Course: Gretel Pearce is a 40-year-old female with past medical history of congestive heart failure with ejection fraction of 10%, dyslipidemia, left ventricular thrombus, hypertension, anxiety, iron-deficiency anemia presented with complaints of abdominal pain Since yesterday. Patient rates the pain 10 on 10 in intensity, sharp in quality, radiating to the chest, increasing on exercising. She also complains of associated shortness of breath and generalized weakness. She denies any fever, chills. Patient takes Lasix at home. She reports cough for the last few weeks with green sputum and constipation. Patient reports that an angiogram was done last week at another facility. labs revealed normocytic anemia, elevated creatinine levels and elevated troponin. Chest x-ray revealed enlarged cardiac silhouette. Abdominal ultrasound revealed cholelithiasis with sludge and wall thickening, right pleural effusion and abdominal ascites. CT abdomen revealed cirrhosis with sequela of portal venous hypertension. Surgery was consulted, advised higher level of care due to High-risk, ejection fraction of 10%. the abdominal pain subsided. Cardiology was consulted, advised continuing with anticoagulation for the left ventricular thrombus and starting on GDMT. aggressive diuresis was done. During the course of the hospitalization, the shortness of breath and pedal edema subsided and abdominal pain resolved, hence being discharged. Condition at Discharge: Fair Final Diagnosis/Problems List Acute on chronic decompensated HFrEF, NYHA class III Right pleural effusion, due to above NSTEMI type 2 Severe mitral and tricuspid valve regurgitation Acute cholecystitis acute complicated UTI Cirrhosis with sequelae of portal venous hypertension Abdominal ascites due to above Transaminitis due to above Dyslipidemia Anxiety Essential Hypertension History of LV thrombus (on Eliquis) Chronic kidney disease, likely cardiorenal syndrome active methamphetamine abuse Discharge Disposition: Home Discharge Instruct/Medications Diet: Cardiac 2g Na,low cholest Activity: No Restrictions, As Tolerated Follow Up/Referral: Follow up with the PCP within 1 week of discharge. Follow up with the Cardiology on outpatient basis. Follow up with the surgery on outpatient basis. Follow up with the discharge Clinic within 1 week of discharge. Medications: Spironolactone 25 mg daily. Jardiance 10 mg daily Augmentin 875 mg b.i.d. for 5 days. Continue home meds Scheduled Amoxicillin & Pot Clavulanate (Augmentin Tablet), 875 MG PO BID Amoxicillin & Pot Clavulanate (Augmentin Tablet), 875 MG PO BID Apixaban Base (Eliquis), 5 MG PO BID Aspirin (Aspir-81), 1 TAB PO DAILY, (Reported) Carvedilol (Coreg), 12.5 MG PO Q12HR Empagliflozin (Jardiance), 10 MG PO DAILY Losartan Potassium (Losartan Potassium), 25 MG PO DAILY Spironolactone (Spironolactone), 25 MG PO DAILY Miscellaneous Medications Furosemide (Lasix), 40 MG PO, (Reported) Discharge Statement: "Patient was advised to return to the ER or call 911 if any headaches, dizziness, shortness of breath, chest pain, abdominal pain, bleeding, fevers, or worsening of medical condition. Patient was counseled about treatment plan, medications, possible side effects, patientverbalized understanding. All questions were answered to the best of my ability. This discharge took greater then 30 minutes in planning, reviewing documentation, counseling the patient, and discussing with other team members." ASSESSMENT ASSESSMENT Assessment Acute on chronic systolic heart failure Visit Coding STANDARD RES Billing Provider: DARON LEONARD DO Date of Service if different f: Oct 21, 2025 Common Visit Codes: [id number]/[id number] DISCH DAY >30min SANDRA PANCHAL RESIDENT Oct 21, 2025 15:43
== END 2025-10-21 15:23 | disposition home or self-care (01) ==
LOC: EDBD 20:35 → ER 20:35 → OVERFLOW 22:30 → UNDOADMIN 22:31 → OVERFLOW 22:31 → UNDODISIN 23:59 → UNDODEPER 10-18 00:24 → TELE-CENTR 10-18 13:26
PROVIDERS: ADMIT Student in an Organized Health Care Education/Training Program; ATTEND Student in an Organized Health Care Education/Training Program
DX: K80.00 Calculus of gallbladder with acute cholecystitis without obstruction (principal); I50.23 Acute on chronic systolic (congestive) heart failure; I21.A1 Myocardial infarction type 2; R18.8 Other ascites; N39.0 Urinary tract infection, site not specified; Z79.01 Long term (current) use of anticoagulants; I13.0 Hypertensive heart and chronic kidney disease with heart failure and stage 1 through stage 4 chronic kidney disease, or unspecified chronic kidney disease; I08.1 Rheumatic disorders of both mitral and tricuspid valves; N18.9 Chronic kidney disease, unspecified; K76.6 Portal hypertension; Z20.822 Contact with and (suspected) exposure to COVID-19; K74.60 Unspecified cirrhosis of liver; E78.5 Hyperlipidemia, unspecified; F41.9 Anxiety disorder, unspecified; R74.01 Elevation of levels of liver transaminase levels; Z87.891 Personal history of nicotine dependence; Z83.3 Family history of diabetes mellitus; Z82.49 Family history of ischemic heart disease and other diseases of the circulatory system; Z91.148 Patient's other noncompliance with medication regimen for other reason
CPT/HCPCS: 36415; 71045; 74176; 76700; 76705; 78226; 80053; 80076; 80307; 81001; 81025; 83690; 83880; 84484; 85025; 85610; 85730; 87070; 87086; 87205; 87426; 87804; 93005; 93306; 99291; G0378; J3490

== ENCOUNTER 2025-10-31 15:22 | Inpatient (IN) | payer OTHER ==
[~2025-10-31] VITALS: Ht 167.6 cm; Wt 74.4 kg
[~2025-10-31 15:22] MED LIST changes: +EMPA1TAB PO; +SPIR25TA8 PO
--- NOTE | 2025-10-31 15:42 | ECG ---
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
[2025-10-31 15:46] VITALS: PULSE 98; RESP 18; O2SAT 99
--- NOTE | 2025-10-31 15:57 | ED.PDOC ---
History of Present Illness HPI Comments 40-year-old female BIBA with prior medical history of kidney issue, CHF, hypertension, high lipids: Surgical history of x2 and a chief complaint of chest pain/shortness a breath. EMS report that the patient had a sudden onset of short nipple a breath at 3:00 a.m. this morning associated with the her having a difficulty sleeping and shortly after having a 7/10 sternal sharp chest pain which worsens with breathing. EMS note that the patient came to the ER one week ago for the similar symptoms and was diagnosed with CHF exacerbation. Denies any other symptoms at this time. Denies chills, fever, N/V/D. No other associated symptoms, modifiers, recent injuries or sick contacts present at this time. Chief Complaint: Shortness of Breath Time Seen by MD: 15:45 Reviewed Notes: Nurses Notes, [employer] Notes, Medications, Allergies Allergies: Coded Allergies: NO KNOWN ALLERGIES (Unverified , 01/18/25) Home Meds Active Scripts Amoxicillin & Pot Clavulanate (AUGMENTIN TABLET) 875 Mg Tb, 875 MG PO BID for 5 Days, #10 TAB Prov:KENYA DE LA FUENTE RESDIENT 10/20/25 Empagliflozin (Jardiance) 10 Mg Tab, 10 MG PO DAILY for 30 Days, #30 TAB Prov:KENYA DE LA FUENTE RESDIENT 10/20/25 Spironolactone (Spironolactone) 25 Mg Tab, 25 MG PO DAILY for 30 Days, #30 TAB Prov:KENYA DE LA FUENTE RESDIENT 10/20/25 Losartan Potassium (Losartan Potassium) 25 Mg Tab, 25 MG PO DAILY for 30 Days, #30 TAB Prov:AGUSTIN LE MD 01/25/25 Carvedilol (COREG) 12.5 Mg Tab, 12.5 MG PO Q12HR for 30 Days, #60 TAB Prov:AGUSTIN LE MD 01/25/25 Apixaban Base (ELIQUIS) 5 Mg Tab, 5 MG PO BID for 30 Days, #60 TAB Prov:AGUSTIN LE MD 01/25/25 Amoxicillin & Pot Clavulanate (AUGMENTIN TABLET) 875 Mg Tb, 875 MG PO BID for 10 Days, #20 TAB Prov:AGUSTIN LE MD 01/25/25 Reported Medications Aspirin (Aspir-81) 81 Mg Tab, 1 TAB PO DAILY, #30 TAB 5 Refills 01/19/25 Furosemide (Lasix) 40 Mg Tab, 40 MG PO, TAB 01/19/25 Information Source: Patient, Emergency Med Personnel Mode of Arrival: EMS Severity: Moderate Timing: Hours Duration: Since onset, Hours Prehospital treatment: None Past Medical History PAST MEDICAL HISTORY: Anemia, Anxiety, CHF, High Lipids, HTN, MA Past Medical History (Other): Kidney issue Surgical History: (X2) 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 Family History Family History: Unknown Social History Smoker: Non-Smoker Alcohol: Denies ETOH Use Drugs: Marijuana Lives In: Home Constitutional: denies: chills, diaphoresis, fatigue, fever, malaise, sweats, weakness, others EENTM: denies: blurred vision, double vision, ear bleeding, ear discharge, ear drainage, ear pain, ear ringing, eye pain, eye redness, hearing loss, mouth pain, mouth swelling, nasal discharge, nose bleeding, nose congestion, nose pain, photophobia, tearing, throat pain, throat swelling, voice changes, others Respiratory: reports: shortness of breath; denies: cough, hemoptysis, orthopnea, SOB at rest, SOB with excertion, stridor, wheezing, others Cardiovascular: reports: chest pain; denies: dizzy spells, diaphoresis, Dyspnea on exertion, edema, irregular heart beat, left arm pain, lightheadedness, palpitations, PND, syncope, others Gastrointestinal: denies: abdomen distended, abdominal pain, blood streaked bow els, constipated, diarrhea, dysphagia, difficulty swallowing, hematemesis, melena, nausea, poor appetite, poor fluid intake, rectal bleeding, rectal pain, vomiting, others Genitourinary: denies: abnormal vagina bleeding, burning, dyspareunia, dysuria, flank pain, frequency, hematuria, incontinence, pain, , vagina discharge, urgency, others Neurological: denies: dizziness, fainting, headache, left sided numbness, left sided weakness, numbness, paresthesia, pre-existing deficit, right sided numbness, right sided weakness, seizure, speech problems, tingling, tremors, weakness, others Musculoskeletal: denies: back pain, gout, joint pain, joint swelling, muscle pain, muscle stiffness, neck pain, others Integumetry: denies: bruises, change in color, change in hair/nails, dryness, laceration, lesions, lumps, rash, wounds, others Allergic/Immunocompromised: denies: Difficulty Healing, Frequent Infections, Hives, Itching, others Hematologic/Lymphatic: denies: anemia, blood clots, easy bleeding, easy bruisi ng, swollen glands, others Endocrine: denies: excessive hunger, excessive sweating, excessive thirst, exce ssive urination, flushing, intolerance to cold, intolerance to heat, unexplained weight gain, unexplained weight loss, others Psychiatric: denies: anxiety, bipolar disorder, depression, hopeless, panic disorder, schizophrenia, sleepless, suicidal, others All Other Systems: Reviewed and Negative Physical Exam General Appearance: Moderate Distress HEENT: Normal ENT Inspection, Pharynx Normal, TMs Normal Neck: Full Range of Motion, Non-Tender, Normal, Normal Inspection Respiratory: Chest Non-Tender, Lungs Clear, No Accessory Muscle Use, Rales, Respiratory Distress Cardiovascular: No Edema, No JVD, No Murmur, No Gallop, Normal Peripheral Pulses, Regular Rate/Rhythm Breast Exam: Deferred Gastrointestinal: No Organomegaly, Non Tender, No Pulsatile Mass, Normal Bowel Sounds, Soft Genitalia: Deferred Pelvic: Deferred Rectal: Deferred Extremities: No calf tenderness, Normal capillary refill, No pedal edema Musculoskeletal : Apperance: Normal Neurologic: Alert, c d stripper II-XII nml as Tested, Motor Weakness, Normal Affect, Normal Mood, No Sensory Deficits Cerebellar Function: Normal Reflexes: Normal Skin: Dry, Normal Color, Warm Lymphatic: No Adenopathy Was a procedure done? Was a procedure done?: No Differential Dx Considerations may include: ACS, MA, CHF, generalized weakness X-Ray, Labs, Meds, VS Vital Signs Date Time Temp Pulse Resp B/P (MAP) Pulse Ox O2 Delivery O2 Flow Rate FiO2 10/31/25 17:06 121/74 10/31/25 15:46 97.7 92 18 116/97 (103) 100 97.7 10/31/25 15:46 98 18 99 Room Air* 0 21 10/31/25 15:38 98.6 80 20 144/102 98 98.6 10/31/25 15:28 94 Lab Test 10/31/25 16:42 10/31/25 16:39 10/31/25 16:34 10/31/25 15:46 Range/Units Urine Color Yellow Yellow Urine Clarity Clear Clear Urine pH 6.0 5.0-9.0 Urine Specific [place] 1.022 1.001-1.035 Urine Protein 1+ H Negative Urine Ketones Trace Negative Urine Blood Negative Negative /uL Urine Nitrite Negative Negative Urine Bilirubin Negative Negative Urine Urobilinogen 3 H Negative mg/dL Urine Leukocyte Esterase 1+ Negative /uL Urine RBC <1 0 - 4 /hpf Urine Microscopic WBC 6 H 0-5 /HPF Urine Squamous Epithelial Cells Few <5 /hpf Urine Bacteria None seen None Seen /hpf Urine Glucose Normal Normal mg/dL POC Glucose 73 70-106 mg/dl Troponin I High Sensitivity 24 26 </=34 ng/L White Blood Count 6.3 4.4-10.8 10^3/uL Red Blood Count 4.06 4.0-5.20 10^6/uL Hemoglobin 11.5 L 12.2-16.2 g/dL Hematocrit 37.5 36.0-46.0 % Mean Corpuscular Volume 92.4 80.0-100.0 fL Mean Corpuscular Hemoglobin 28.2 28.0-32.0 pg Mean Corpuscular Hemoglobin Concent 30.5 L 32.0-36.0 g/dL Red Cell Distribution Width 21.4 H 11.8-14.3 % Platelet Count 328 140-450 10^3/uL Mean Platelet Volume 8.7 6.9-10.8 fL Neutrophils (%) (Auto) 66.9 37.0-80.0 % Lymphocytes (%) (Auto) 22.0 10.0-50.0 % Monocytes (%) (Auto) 8.1 0.0-12.0 % Eosinophils (%) (Auto) 1.7 0.0-7.0 % Basophils (%) (Auto) 1.3 0.0-2.0 % Neutrophils # (Auto) 4.2 1.6-8.6 10 ^3/uL Lymphocytes # (Auto) 1.4 0.4-5.4 10 ^3/uL Monocytes # (Auto) 0.5 0-1.3 10 ^3/uL Eosinophils # (Auto) 0.1 0-0.8 10 ^3/uL Basophils # (Auto) 0.1 0-0.2 10 ^3/uL Nucleated Red Blood Cells 3.4 % Sodium Level 137 136-145 mmol/L Potassium Level 6.0 *H 3.5-5.1 mmol/L Chloride Level 105 98-107 mmol/L Carbon Dioxide Level 20 20-31 mmol/L Anion Gap 12 5-15 Blood Urea Nitrogen 31 H 9-23 mg/dL Creatinine 1.25 H 0.550-1.02 mg/dL Glomerular Filtration Rate Calc 56 >90 mL/min BUN/Creatinine Ratio 24.8 H 10.0-20.0 Serum Glucose 96 74-106 mg/dL Calcium Level 9.5 8.7-10.4 mg/dL Magnesium Level 2.2 1.6-2.6 mg/dL B-Type Natriuretic Peptide > 5000.00 0-100 pg/mL Current Medications Medications (Trade) Dose Ordered Sig/Hernán Route Start Time Stop Time Status Last Admin Furosemide (Lasix Injection) 40 mg ONCE ONCE IV 10/31/25 15:45 10/31/25 15:46 DC 10/31/25 17:06 Calcium Gluconate/ Sodium Chloride 50 ml @ 100 mls/hr ONCE ONCE IV 10/31/25 16:30 10/31/25 16:59 DC 10/31/25 17:12 Dextrose 50 ml ONCE ONCE IV 10/31/25 16:30 10/31/25 16:31 DC 10/31/25 16:52 Sodium Bicarbonate 50 ml ONCE ONCE IV 10/31/25 16:30 10/31/25 16:31 DC 10/31/25 16:59 The urine test is negative for any infection at this time The patient's CBC and chemistry panel are within normal limits except for potassium of 6.0 and a BUN of 31 and 1.25 The BNP is greater than 5000 The chest x-ray does show IMPRESSION: 1. Cardiomegaly without findings of congestive failure most likely represent a cardiomyopathy or pericardial effusion. The patient was given sodium bicarbonate as well as dextrose and calcium gluconate for the hyperkalemia. The patient will be admitted at this time The patient was having some pain so was given morphine and Zofran The patient is admitted Images Reviewed?: Images reviewed and evaluated by me Time of 1ST Reevaluation: 16:15 Reevaluation 1ST: Unchanged Patient Education/Counseling: Diagnosis, Treatment, Prognosis Family Education/Counseling: No Family Present SEPSIS Sepsis Screen Physician Orders Chest Portable (10/31/25 15:35) Heplock Iv (10/31/25 15:35) Pulse Oximetry (10/31/25 15:35) Machine Tracer (10/31/25 15:35) Blood Pressure (10/31/25 15:35) Troponin-I Hs (10/31/25 18:35) Vital Signs Date Time Temp Pulse Resp B/P (MAP) Pulse Ox O2 Delivery O2 Flow Rate FiO2 10/31/25 17:06 121/74 10/31/25 15:46 97.7 92 18 116/97 (103) 100 97.7 10/31/25 15:46 98 18 99 Room Air* 0 21 10/31/25 15:38 98.6 80 20 144/102 98 98.6 10/31/25 15:28 94 Laboratory Tests Test 10/31/25 15:46 White Blood Count 6.3 10^3/uL (4.4-10.8) Medications Medications Dose Ordered Sig/Hernán Route Start Time Stop Time Status Last Admin Dose Admin Calcium Gluconate/ Sodium Chloride 50 ml @ 100 mls/hr ONCE ONCE IV 10/31/25 16:30 10/31/25 16:59 DC 10/31/25 17:12 Dextrose 50 ml ONCE ONCE IV 10/31/25 16:30 10/31/25 16:31 DC 10/31/25 16:52 Furosemide 40 mg ONCE ONCE IV 10/31/25 15:45 10/31/25 15:46 DC 10/31/25 17:06 Sodium Bicarbonate 50 ml ONCE ONCE IV 10/31/25 16:30 10/31/25 16:31 DC 10/31/25 16:59 Departure 1 Departure Time of Disposition: 18:56 Impression: Primary Impression: CHF (congestive heart failure) Qualified Codes: I50.33 - Acute on chronic diastolic (congestive) heart failure Additional Impressions: Acute respiratory failure Qualified Codes: J96.01 - Acute respiratory failure with hypoxia ARF (acute renal failure) Qualified Codes: N17.1 - Acute kidney failure with acute cortical necrosis Hyperkalemia Disposition: ADMITTED INPATIENT Admit to: Tele Condition: Fair Critical Care Note Critical Care Time?: Yes (45 min-critical care time only) Stability Stability form required: Yes Unstable for transfer: Telemetry monitoring (Telemetry monitoring required), ED Physician Assesment (Clinical assesment) Heart Score Heart Score: Heart Score Response (Comments) Value History N/A 0 EKG N/A 0 Age N/A 0 Risk Factors N/A 0 Troponin N/A 0 Total 0 I personally scribed for BIRDIE SHERWOOD MD ([email or web address]) on 10/31/25 at 15:57. Electronically submitted by Claudio Villagomez ([email or web address]). BIRDIE SHERWOOD MD Oct 31, 2025 15:57
[2025-10-31 16:03] LABS: Hemoglobin 11.5 g/dL (12.2-16.2)
[2025-10-31 16:04] LABS: Hematocrit 37.5 % (36.0-46.0); Mean Corpuscular Hemoglobin 28.2 pg (28.0-32.0); Mean Corpuscular Volume 92.4 fL (80.0-100.0)
[2025-10-31 16:05] LABS: Nucleated Red Blood Cells % 3.4 %
[2025-10-31 16:09] LABS: Sodium 137 mmol/L (136-145)
[2025-10-31 16:10] LABS: Calcium 9.5 mg/dL (8.7-10.4)
[2025-10-31 16:15] LABS: BUN/Creatinine Ratio 24.8 (10.0-20.0); Glucose 96 mg/dL (74-106)
[2025-10-31 16:16] LABS: Blood Urea Nitrogen 31 mg/dL (9-23); Carbon Dioxide 20 mmol/L (20-31); Magnesium 2.2 mg/dL (1.6-2.6)
[2025-10-31 16:18] LABS: Anion Gap 12 (5-15); Chloride 105 mmol/L (98-107)
[2025-10-31 16:19] LABS: Potassium 6.0 mmol/L (3.5-5.1)
--- NOTE | 2025-10-31 16:21 | DVH ---
CHEST RADIOGRAPH INDICATION: sob TECHNIQUE: Single frontal view of the chest was obtained COMPARISON: XY CHEST XRAY 1 VIEW on DOS: 10/17/25, XY CHEST PORTABLE on DOS: 01/18/25 FINDINGS: Lines and Tubes: None Lungs: No focal consolidation. Pleura: No effusion. No pneumothorax. Cardiomediastinal contours: Cardiomegaly with no findings of congestive failure. Bones: No acute osseous abnormality. IMPRESSION: 1. Cardiomegaly without findings of congestive failure most likely represent a cardiomyopathy or pericardial effusion.
[2025-10-31] MEDS: InsuLIN REG 1unit/0.01ml Soln (100units/ml) IV ONE (16:30)
[2025-10-31] MEDS: DEXTROSE (50%) 50ML SYRG IV ONE (16:52)
[2025-10-31] MEDS: SODIUM BICARB 8.4% 50Meq/50ml SYR Vial IV ONE (16:59)
[2025-10-31] MEDS: FUROSEMIDE 40 MG/4 ML VIAL IV ONE (17:06)
[2025-10-31] MEDS: CALCIUM GLUC 1,000mg/50ml-NS 50 ML IV ONE (17:12)
[2025-10-31 17:27] LABS: Urine Protein, UAD 1+ (Negative)
[2025-10-31] MEDS: ONDANSETRON HCL 4 MG/2 ML VIAL IV ONE (18:48)
[2025-10-31] MEDS: MORPHINE SULFATE 4 MG/ML SYR/VIAL IV ONE (18:48)
[2025-10-31] MEDS ORDERED: ONDANSETRON HCL 4 MG/2 ML VIAL IV PRN (19:15)
[2025-10-31 19:57] VITALS: BP 121/90; PULSE 94; RESP 17; TEMP 98.1; O2SAT 99
[2025-10-31 21:11] VITALS: BP 120/85; PULSE 92; RESP 20; TEMP 98; O2SAT 98
[2025-10-31] MEDS: APIXABAN 5 MG TAB PO SCH (22:25)
[2025-10-31] MEDS: CARVEDILOL 12.5 MG TAB PO SCH (22:25)
[2025-10-31] MEDS: ATORVASTATIN 20 MG TAB PO SCH (22:25)
[2025-10-31] MEDS: TEMAZEPAM 15 MG CAP PO ONE (23:00)
[2025-10-31 23:26] LABS: Chloride 105 mmol/L (98-107); Potassium 4.8 mmol/L (3.5-5.1); Sodium 138 mmol/L (136-145)
[2025-10-31 23:27] LABS: Anion Gap 15 (5-15); Calcium 9.5 mg/dL (8.7-10.4)
[2025-10-31] MEDS: HYDROcodone-ACET 7.5/325MG TAB PO ONE (23:29)
[2025-10-31 23:32] LABS: BUN/Creatinine Ratio 28.7 (10.0-20.0); Glucose 93 mg/dL (74-106)
[2025-10-31 23:36] LABS: Blood Urea Nitrogen 31 mg/dL (9-23); Carbon Dioxide 18 mmol/L (20-31)
--- NOTE | 2025-10-31 23:36 | DVHHP2 ---
History of Present Illness Reason for Visit: Shortness for breath History of Present Illness 40-year-old female presents for evaluation of shortness for breath. Patient reports a two day history of worsening shortness for breath with associated chest pressure and bilateral lower extremity swelling. Denies cough or fever. No GI or symptoms. Past Medical History CHF, dyslipidemia, mi, hypertension, chronic kidney disease, anxiety Past Surgical History Family History Noncontributory Smoke: No ALCOHOL: none Drugs: Marijuana Review of Systems Review of Systems Review of systems are currently negative otherwise addressed in HPI. Allergies: Coded Allergies: NO KNOWN ALLERGIES (Unverified , 01/18/25) Medications Current Medications Medications Dose Ordered Sig/Hernán Route Start Time Stop Time Status Last Admin Dose Admin Atorvastatin Calcium 40 mg HS PO 10/31/25 22:00 10/31/25 22:25 40 MG Aspirin 81 mg DAILY PO 11/01/25 10:00 Ondansetron HCl 4 mg Q4HP PRN IV 10/31/25 19:15 Acetaminophen 650 mg Q6HP PRN PO 10/31/25 19:15 Carvedilol 12.5 mg Q12HR PO 10/31/25 22:00 10/31/25 22:25 12.5 MG Empaglifozin 10 mg DAILY PO 11/01/25 10:00 Furosemide 20 mg BIDD IV 11/01/25 06:00 Losartan Potassium 25 mg DAILY PO 11/01/25 10:00 Spironolactone 25 mg DAILY PO 11/01/25 10:00 Apixaban 5 mg BID PO 10/31/25 22:00 10/31/25 22:25 5 MG Exam Vital Signs Vital Signs Date Time Temp Pulse Resp B/P (MAP) Pulse Ox O2 Delivery O2 Flow Rate FiO2 10/31/25 22:25 92 120/85 10/31/25 19:57 98.1 17 99 98.1 10/31/25 15:46 Room Air* 0 21 Exam Gen: 40-year-old female in mild distress Skin: Warm, dry, normal color and texture, no rash. HEENT: Normocephalic atraumatic, mucous membranes moist and pink. Neck: Cervical and supraclavicular nodes normal without enlargement, trachea is midline, thyroid gland is normal without masses. Pulmonary: Clear to auscultation and percussion bilaterally. Cardiac: Regular rate and rhythm. No murmur Abdomen: Soft, nontender, nondistended, bowel sounds present all 4 quadrants, no guarding, no rigidity, no organomegaly. Extremities: No cyanosis, clubbing, plus two bilateral pedal edema Neuro: Cranial nerves II through XII grossly intact, normal affect and speech, no focal motor deficits. Labs/Xrays ORDERING PHYSICIAN: KENYA DE LA FUENTE PROCEDURE(s): ECIDC - ECHO 2D MODE CARDIAC DOP REASON: HF ORDER NUMBER(s): [id number], ACCESSION NUMBER(s): [id number] APPROVED REPORT EXAM: Two-dimensional and M-mode echocardiogram with Doppler, color Doppler and Bubble Study. Blood Pressure: 117/43 mmHg INDICATION Heart Failure RISK FACTORS Height: 5'6", Weight: 169 DIMENSIONS LVDd 6.7 (3.8-5.7cm) LA (2D) 4.7 (1.9-4.0cm) Aortic Root 2.6 (2.0- 3.7cm) LVDs 6.6 (2.5-4.0cm) LA (MM) (1.9-4.0cm) Aortic Cusp Exc 1.5 (1.5- 2.0cm) EF (%) 2.0 (55-70%) Rt. Atrium 6.0 (1.9-4.0cm) Asc. Aorta 2.5 cm IVSd 1.2 (0.7-1.1cm) RV (D) 4.4 (1.8-2.4cm) PWd 1.2 (0.7-1.1cm) Mitral Valve Mitral Mitral Stenosis E wave 1.08m/s MV Mean GR. mmHg E/A ratio 0.0 2D MVA cm2 Aortic Valve Aortic Valve Aortic Stenosis V1 0.45m/s AO Mean GR. 3mmHg V2 1.06m/s AO Peak GR. 4mmHg LVOT Diameter 1.8 (1.8-2.4cm) Doppler SANYA 1.08cm2 Pulmonic Valve V2 0.77m/s Tricuspid Valve TR Velocity 2.08m/s RVSP 33mmHg Conclusion Good study. Sinus rhythm. Biatrial and biventricular enlargement. Valves appear to be structurally normal. Left ventricular function is severely diminished. EF is less than 10%. RV function is at about 40%. There is moderate mitral insufficiency with severe tricuspid insufficiency. Moderate pulmonic insufficiency. Right ventricular systolic pressure is 30 mmHg however there is a pressure and volume overload consistent with pulmonary hypertension. Etiology is possibly secondary to left ventricular dysfunction. Small pericardial effusion not hemodynamically significant. No intracardiac masses thrombi or vegetations discernible. ORDERING PHYSICIAN: BIRDIE SHERWOOD MD PROCEDURE(s): CXRP - CHEST PORTABLE REASON: sob ORDER NUMBER(s): [id number], ACCESSION NUMBER(s): [id number] CHEST RADIOGRAPH INDICATION: sob TECHNIQUE: Single frontal view of the chest was obtained COMPARISON: XY CHEST XRAY 1 VIEW on DOS: 10/17/25, XY CHEST PORTABLE on DOS: 01/18/25 FINDINGS: Lines and Tubes: None Lungs: No focal consolidation. Pleura: No effusion. No pneumothorax. Cardiomediastinal contours: Cardiomegaly with no findings of congestive failure. Bones: No acute osseous abnormality. IMPRESSION: 1. Cardiomegaly without findings of congestive failure most likely represent a cardiomyopathy or pericardial effusion. Labs Test 10/31/25 18:55 10/31/25 16:42 10/31/25 16:39 10/31/25 15:46 Range/Units Troponin I High Sensitivity 24 </=34 ng/L Urine Color Yellow Yellow Urine Clarity Clear Clear Urine pH 6.0 5.0-9.0 Urine Specific [place] 1.022 1.001-1.035 Urine Protein 1+ H Negative Urine Ketones Trace Negative Urine Blood Negative Negative /uL Urine Nitrite Negative Negative Urine Bilirubin Negative Negative Urine Urobilinogen 3 H Negative mg/dL Urine Leukocyte Esterase 1+ Negative /uL Urine RBC <1 0 - 4 /hpf Urine Microscopic WBC 6 H 0-5 /HPF Urine Squamous Epithelial Cells Few <5 /hpf Urine Bacteria None seen None Seen /hpf Urine Glucose Normal Normal mg/dL POC Glucose 73 70-106 mg/dl White Blood Count 6.3 4.4-10.8 10^3/uL Red Blood Count 4.06 4.0-5.20 10^6/uL Hemoglobin 11.5 L 12.2-16.2 g/dL Hematocrit 37.5 36.0-46.0 % Mean Corpuscular Volume 92.4 80.0-100.0 fL Mean Corpuscular Hemoglobin 28.2 28.0-32.0 pg Mean Corpuscular Hemoglobin Concent 30.5 L 32.0-36.0 g/dL Red Cell Distribution Width 21.4 H 11.8-14.3 % Platelet Count 328 140-450 10^3/uL Mean Platelet Volume 8.7 6.9-10.8 fL Neutrophils (%) (Auto) 66.9 37.0-80.0 % Lymphocytes (%) (Auto) 22.0 10.0-50.0 % Monocytes (%) (Auto) 8.1 0.0-12.0 % Eosinophils (%) (Auto) 1.7 0.0-7.0 % Basophils (%) (Auto) 1.3 0.0-2.0 % Neutrophils # (Auto) 4.2 1.6-8.6 10 ^3/uL Lymphocytes # (Auto) 1.4 0.4-5.4 10 ^3/uL Monocytes # (Auto) 0.5 0-1.3 10 ^3/uL Eosinophils # (Auto) 0.1 0-0.8 10 ^3/uL Basophils # (Auto) 0.1 0-0.2 10 ^3/uL Nucleated Red Blood Cells 3.4 % Magnesium Level 2.2 1.6-2.6 mg/dL B-Type Natriuretic Peptide > 5000.00 0-100 pg/mL SEPSIS Sepsis Screen Date sepsis recognized/suspect: Oct 31, 2025 Time Sepsis recognized/suspect: 1546 Recent Procedure: No On Antibiotic Therapy: No Respiratory Rate >20: No Heart Rate >90: No Temp<36 C (96.8 F) or >38.3 C: No SBP <90 or MAP <65 mmHG: No New Acute Mental Status Change: No Is the patient on CPAP, BIPAP,: No Physician Orders Chest Portable (10/31/25 15:35) Heplock Iv (10/31/25 15:35) Pulse Oximetry (10/31/25 15:35) Corrosion Control Specialist (10/31/25 15:35) Blood Pressure (10/31/25 15:35) Atorvastatin (Lipitor) (10/31/25 22:00) Aspirin Tablet (11/01/25 10:00) Admit (10/31/25 19:05) Ondansetron Hcl (Zofran) (10/31/25 19:15) Cardiac Diet-2gna,Lofat,Lochol (11/01/25 Breakfast) Acetaminophen Tablet (Tylenol Tablet) (10/31/25 19:15) Bedrest With Bathroom Privileg (10/31/25 19:05) Carvedilol Tablet (Coreg Tablet) (10/31/25 22:00) Empagliflozin (Jardiance) (11/01/25 10:00) Furosemide Injection (Lasix Injection) (11/01/25 06:00) Losartan Tablet (Cozaar Tablet) (11/01/25 10:00) Spironolactone (Aldactone) (11/01/25 10:00) Apixaban (Eliquis) (10/31/25 22:00) Mrsa Screen (10/31/25 20:41) * Tax Appraiser Consult (10/31/25 ) Basic Metabolic Panel (10/31/25 23:08) Vital Signs Date Time Temp Pulse Resp B/P (MAP) Pulse Ox O2 Delivery O2 Flow Rate FiO2 10/31/25 22:25 92 120/85 10/31/25 19:57 98.1 94 17 121/90 (100) 99 98.1 10/31/25 18:48 96 18 129/99 10/31/25 18:06 96 16 129/99 (109) 98 10/31/25 17:06 121/74 10/31/25 15:46 97.7 92 18 116/97 (103) 100 97.7 10/31/25 15:46 98 18 99 Room Air* 0 21 10/31/25 15:38 98.6 80 20 144/102 98 98.6 Laboratory Tests Test 10/31/25 15:46 White Blood Count 6.3 10^3/uL (4.4-10.8) Medications Medications Dose Ordered Sig/Hernán Route Start Time Stop Time Status Last Admin Dose Admin Apixaban 5 mg BID PO 10/31/25 22:00 10/31/25 22:25 5 MG Atorvastatin Calcium 40 mg HS PO 10/31/25 22:00 10/31/25 22:25 40 MG Calcium Gluconate/ Sodium Chloride 50 ml @ 100 mls/hr ONCE ONCE IV 10/31/25 16:30 10/31/25 16:59 DC 10/31/25 17:12 100 MLS/HR Carvedilol 12.5 mg Q12HR PO 10/31/25 22:00 10/31/25 22:25 12.5 MG Dextrose 50 ml ONCE ONCE IV 10/31/25 16:30 10/31/25 16:31 DC 10/31/25 16:52 50 ML Furosemide 40 mg ONCE ONCE IV 10/31/25 15:45 10/31/25 15:46 DC 10/31/25 17:06 40 MG Morphine Sulfate 4 mg ONCE ONCE IV 10/31/25 18:30 10/31/25 18:31 DC 10/31/25 18:48 4 MG Ondansetron HCl 4 mg ONCE ONCE IV 10/31/25 18:30 10/31/25 18:31 DC 10/31/25 18:48 4 MG Sodium Bicarbonate 50 ml ONCE ONCE IV 10/31/25 16:30 10/31/25 16:31 DC 10/31/25 16:59 50 ML Assessment/Plan Assessment/Plan Assessment Acute on chronic respiratory failure CHF exacerbation Chronic kidney disease Hypokalemia Hypertension Plan Admit the patient to [facility] to the hospitalist IV Lasix Resume home medications Repeat BMP Continue treatment per orders. Plan discussed with: Patient My Orders Orders - RAFIQ CORRAL AGACNP Procedure Category Date Status Time Atorvastatin (Lipitor) PHA 10/31/25 In Process 22:00 Aspirin Tablet PHA 11/01/25 In Process 10:00 Admit ADMIT 10/31/25 Transmitted 19:05 Ondansetron Hcl PHA 10/31/25 In Process (Zofran) 19:15 Cardiac DIET 11/01/25 Transmitted Diet-2gna,Lofat,Lochol Breakfast Acetaminophen Tablet PHA 10/31/25 In Process (Tylenol Tablet) 19:15 Bedrest With Bathroom DEJUAN 10/31/25 In Process Privileg 19:05 Carvedilol Tablet PHA 10/31/25 In Process (Coreg Tablet) 22:00 Empagliflozin PHA 11/01/25 In Process (Jardiance) 10:00 Furosemide Injection PHA 11/01/25 In Process (Lasix Injection) 06:00 Losartan Tablet PHA 11/01/25 In Process (Cozaar Tablet) 10:00 Spironolactone PHA 11/01/25 In Process (Aldactone) 10:00 Apixaban (Eliquis) PHA 10/31/25 In Process 22:00 Mrsa Screen KARYN 10/31/25 In Process 20:41 * Tax Appraiser CONS 10/31/25 Transmitted Consult Basic Metabolic Panel LAB 10/31/25 In Process 23:08 Date of Service: Oct 31, 2025 Billing Provider: RAFIQ CORRAL Common Visit Codes: [id number] INP/OBS CARE (HIGH) RAFIQ CORRAL Oct 31, 2025 23:35
[2025-11-01] VITALS (10 sets, daily range): BP systolic 95–115; BP diastolic 66–97; PULSE 64–75; RESP 16–18; TEMP 97–98; O2SAT 97–100
[2025-11-01] MEDS: FUROSEMIDE 20 MG/2 ML VIAL IV SCH (06:14)
[2025-11-01 09:18] LABS: Hemoglobin 10.2 g/dL (12.2-16.2)
[2025-11-01 09:20] LABS: Hematocrit 33.0 % (36.0-46.0); Mean Corpuscular Hemoglobin 27.9 pg (28.0-32.0); Mean Corpuscular Volume 90.3 fL (80.0-100.0); Nucleated Red Blood Cells % 1.1 %
[2025-11-01 09:49] LABS: Alanine Aminotransferase 28 U/L (7-40); Albumin 3.3 g/dL (3.2-4.8); Anion Gap 11 (5-15); BUN/Creatinine Ratio 18.2 (10.0-20.0); Calcium 9.0 mg/dL (8.7-10.4); Carbon Dioxide 21 mmol/L (20-31); Chloride 104 mmol/L (98-107); Magnesium 2.0 mg/dL (1.6-2.6); Potassium 4.7 mmol/L (3.5-5.1); Sodium 136 mmol/L (136-145); Total Protein 7.4 g/dL (5.7-8.2)
[2025-11-01 09:57] LABS: Opiate Scree,Urine Neg (NEGATIVE)
[2025-11-01 10:12] LABS: Alkaline Phosphatase 205 U/L (46-116); Bilirubin, Total 1.5 mg/dL (0.2-1.0); Blood Urea Nitrogen 25 mg/dL (9-23); Glucose 133 mg/dL (74-106)
[2025-11-01 10:12] LABS: Amphetamine Screen, Urine Neg (NEGATIVE); Barbiturate Scree,Urine Neg (NEGATIVE); Benzodiazephine Screen, Urine Neg (NEGATIVE); Cannabinoid Screen, Urine Neg (NEGATIVE); Cocaine Screen, Urine Neg (NEGATIVE); Phencyclidine Screen, Urine Neg (NEGATIVE)
[2025-11-01 10:21] LABS: INR 1.36 (0.9-1.15); Partial Thromboplastin Time 28.8 SEC (24.5-34.5); Prothrombin Time 14.0 sec (9.3-11.8)
--- NOTE | 2025-11-01 10:33 | DVH ---
ULTRASOUND DOPPLER CLINICAL HISTORY: cirrhosis TECHNIQUE: Doppler examination of the abdomen was performed. COMPARISON: US GALLBLADDER on DOS: 10/18/25, US ABDOMEN COMPLETE SONOGRAM on DOS: 10/17/25 FINDINGS: The liver is slightly enlarged measuring 20 cm and is heterogeneous in echotexture. There is bidirectional flow seen in the main portal vein. Gallbladder contains stones and sludge. Gallbladder wall is mildly thickened measuring 6 mm. Common bile duct is 3.9 mm. There is no sonographic Augustin's sign. Right kidney is 11.6 cm and is increased in echogenicity. Mild free fluid is seen. There is a small left pleural effusion 1. No portal vein thrombosis. 2. Enlarged echogenic liver 3. Gallstones and sludge. 4. Gallbladder wall is mildly thickened measuring 6 mm, clinical correlation recommended. 5. Ascites. 6. Small left pleural effusion
[2025-11-01] MEDS: SPIRONOLACTONE 25 MG TAB PO SCH (10:47)
[2025-11-01] MEDS: EMPAGLIFLOZIN 10 MG TAB PO SCH (10:47)
[2025-11-01] MEDS: LOSARTAN POTASSIUM 25 MG TAB PO SCH (10:48)
[2025-11-01] MEDS: LEVOTHYROXINE SODIUM 25 MCG TAB PO ONE (12:02)
[2025-11-01] MEDS: HEPARIN DRIP/D5W 100UNITS/ML 250 ML IV SCH ×2 (12:12→19:00)
--- NOTE | 2025-11-01 12:36 | CONS ---
Pharmacy Clinical Information: HEPARIN DRIP PER RX PROTOCOL SPOKE TO FITZ ADAMS REGARDING TO NEW HEPARIN DRIP PROTOCOL FITZ ADAMS CLARIFIED WITH DR. MCKNIGHT FOR LEFT VENTRICULAR THROMBUS CURRENT aPTT = 28.8 TODAY 11/01/2025 AT 08:28 INITIAL HEPARIN DRIP RATE = 1300 UNITS/HR STARTED BY FITZ ADAMS TODAY 11/01/2025 AT 12:12 NEXT aPTT TODAY 11/01/2028 AT 18:15 ANGIE BYRNES READ BACK INITIAL HEPARIN DRIP RATE 1300 UNITS/HR BIJAL Francois Nov 01, 2025 12:36
[2025-11-01] MEDS ORDERED: SODIUM CHLORIDE 0.9% 500 ML IV ONE (13:00)
[2025-11-01 13:08] LABS: Free T3 2.93 pg/mL (2.3-4.2)
[2025-11-01 13:10] LABS: Free T4 (Free Thyroxine) 1.09 ng/dL (0.89-1.76)
[2025-11-01 13:46] LABS: Hepatitis B Surface Antigen Negative (Negative)
[2025-11-01 14:09] LABS: Hepatitis C Antibody Negative (Negative)
--- NOTE | 2025-11-01 14:57 | CONS ---
Pharmacy Clinical Information: CHF FALL OUT From Heart Failure Fallout Report on CQM Application, Gretel Pearce is a 40-year-old female with PMH of CHF (LVE 10%), dyslipidemia, NH, HTN, CKD, and anxiety. Her current home medications for heart failure includes metoprolol succinate. Previous home medications for heart failure includes carvedilol, lisinopril, furosemide, atorvastatin, and empagliflozin. According to the patient's external medication history, these medications were last filled on 08/06/25 with a 30 day supply with the exception of jardiance, last filled 07/02/25 with a 30 day supply. The patient is currently on carvedilol, empagliflozin, losartan, atorvastatin, spironolactone, and furosemide while in-patient. Due to the external medication history indicating that the patient had last filled their heart failure medications in July, this patient may benefit from extensive education on the importance of medication adherence to prevent the progression of their disease state and decrease the chance of readmission. However, unable to completely assess the patient without the full social history as there may be other contributing factors to in which the patient is unable to be adherent to their medications. BRONSON MANJARREZ [facility] RESIDENT Nov 01, 2025 14:57
--- NOTE | 2025-11-01 16:42 | DVHPNRES ---
Progress Note Date Seen: Nov 01, 2025 Resident Creating Document: EUSEBIO MCKNIGHT RESIDENT Medical Necessity Reason Pt with a Central, PICC or Fol: No Subjective Review of Systems Patient is 40 years old female with a past medical history of HFrEF, EF 10%, history of left ventricular thrombus on Eliquis, CAD, hyperlipidemia, hypertension, CKD, Cirrhosis with sequelae of portal venous hypertension, Cholelithiasis, anxiety with a complaint of shortness of breaths. As per patient she has been having shortness of breaths Functional Class III for last 2 days, PND, orthopnea, abdominal swelling and palpitation. She also endorsed some chest pain in the left side, intermittent, 8/10, increased with breathing, pressure-like. As per patient she gets shortness of breaths when she goes to the restroom. On further inquiry patient also endorsed bilateral leg swelling. Patient denied any fever, cough, diarrhea, acute joint redness, dysarthria or change in vision. Initial EKG no acute ST-T wave changes, lab workup revealed serum creatinine 1.08, GFR> 66, BNP> 5000, serum bilirubin 1.5, AST 49, urinalysis leukocyte esterase 1+, WBC 6, protein 1+, TSH 23, chest x-ray cardiomegaly, mild pulmonary congestion, UDS negative, patient's previous echo on 10/18/2025 LVEF 10%, biatrial and biventricular enlargement,RVSP 33, RV function 40%, moderate mitral insufficiency, severe tricuspid regurgitation, moderate pulmonary insufficiency, small pericardial effusion. Ultrasound of the liver- Enlarged echogenic liver, Gallstones and sludge.Gallbladder wall is mildly thickened measuring 6 mm, clinical correlation recommended.Ascites.Small left pleural effusion PMH-HFrEF, EF 10%, history of left ventricular thrombus on Eliquis, CAD, hyperlipidemia, hypertension, CKD, anxiety PSH- Allergy- and kidney Personal History/ Social History- smokes marijuana, methamphetamine, ROS Cardiovascular- chest pain, shortness of breaths, Respiratory shortness of Gastrointestinal- denies any rectal bleeding, nausea or vomiting Musculoskeletal-leg swelling Neurological- denies acute dysarthria, dysphagia, change in vision Psychiatry- denies depression or SI or HI Skin- denies acute rash or purpura Patient was seen today at bedside Labs and chart reviewed Ordered cardiology consult Pending echo 2D Patient on Lasix, Jardiance, carvedilol, losartan, spironolactone, Ordered levothyroxine for hypothyroidism Objective vital signs Vital Sign Date Time Temp Pulse Resp B/P (MAP) Pulse Ox O2 Delivery O2 Flow Rate FiO2 11/01/25 13:00 97.1 67 17 103/67 (79) 99 97.1 11/01/25 08:00 Room Air* 0 21 Total Intake and Output 10/31/25 10/31/25 11/01/25 15:00 23:00 07:00 Intake Total 50 ml 250 ml Balance 50 ml 250 ml medications Current Medications Medications Dose Ordered Sig/Hernán Route Start Time Stop Time Status Last Admin Dose Admin Atorvastatin Calcium 40 mg HS PO 10/31/25 22:00 10/31/25 22:25 40 MG Ondansetron HCl 4 mg Q4HP PRN IV 10/31/25 19:15 Acetaminophen 650 mg Q6HP PRN PO 10/31/25 19:15 Carvedilol 12.5 mg Q12HR PO 10/31/25 22:00 11/01/25 10:47 12.5 MG Empaglifozin 10 mg DAILY PO 11/01/25 10:00 11/01/25 10:47 10 MG Losartan Potassium 25 mg DAILY PO 11/01/25 10:00 11/01/25 10:48 25 MG Spironolactone 25 mg DAILY PO 11/01/25 10:00 11/01/25 10:47 25 MG Furosemide 40 mg BIDD IV 11/01/25 20:00 Heparin Sodium/ Dextrose 250 ml @ 13 mls/hr [id number] IV 11/01/25 10:00 11/01/25 12:12 13 MLS/HR Aspirin 81 mg DAILY PO 11/02/25 10:00 Pantoprazole Sodium 40 mg DAILY@0600 PO 11/02/25 06:00 Levothyroxine Sodium 100 mcg QAM@0600 PO 11/02/25 06:00 Examination General examination- awake, alert HEENT- PEERLA, no acute nasal discharge Cardiovascular- S1-S2 audible, rate and rhythm regular, no murmur Respiratory- C lung crackles+ Gastrointestinal-nontender, bowel sound+. Distended abdomen Musculoskeletal-no acute joint swelling or tenderness or redness Lower extremity- bilateral leg edema Neurological- cranial nerves intact, no acute dysarthria or dysphagia Psychiatry- denies depression or SI or HI Skin- no acute rash or purpura laboratory and microbiology Laboratory Tests 11/01/25 08:28 Test 11/01/25 08:28 Range/Units Serum Glucose 133 H 74-106 mg/dL Microbiology Date/Time Source Procedure Growth Status 10/31/25 20:41 Nose MRSA Screen - Final Methicillin Resistant S.aureus Complete Problem List/Assessment/Plan Problem List/Assessment/Plan Assessment and plan # acute hypoxic respiratory failure likely due to acute pulmonary edema # acute on chronic heart failure likely due to HFrEF # anasarca # suspected pulmonary hypertension # history of LV thrombus # bilateral leg swelling likely due to above # severe MR/severe TR #Small left pleural effusion -pending echo 2D -pending cardiology, -continue Lasix, carvedilol, spironolactone, Jardiance, losartan as prescribed -strict I&O -fluid restriction as prescribed -continue heparin as per pharmacy protocol # acute chest pain, rule out acute coronary syndrome -continue aspirin, atorvastatin, carvedilol, losartan -pending cardiology consult # cirrhosis of liver with sequelae -Ultrasound of the liver- Enlarged echogenic liver, Gallstones and sludge.Gallbladder wall is mildly thickened measuring 6 mm, clinical correlation recommended.Ascites.Small left pleural effusion -continue Lasix and spironolactone as prescribed -monitor liver function test -lactulose as prescribed # history of coronary artery disease -continue atorvastatin, aspirin as prescribed # hypertension -continue current conservative management # suspected cardiorenal syndrome # history of CKD -avoid dehydration and nephrotoxic drugs -continue current conservative manage # anxiety -Ativan PRN # prediabetes -low carb diet # hypothyroidism -TSH 23.96, F T4 1.09, free T3 2.93 -continue levothyroxine as prescribed -monitor TSH as an outpatient basis in 4-6 weeks Goals of care, Code status full code ; discussed with >15 minutes PUD prophylaxis: Pantoprazole DVT prophylaxis: Heparin Plan discussed with Dr. Baig , nursing staff, Total time spent on patient evaluation, chart review, assessment and plan, discussion discussion >35 minutes Plan discussed with: Other (RN) My Orders My Orders Orders - EUSEBIO MCKNIGHT RESIDENT Procedure Category Date Status Time Echo 2d Mode Cardiac US 11/01/25 Logged DOP 07:56 Furosemide Injection PHA 11/01/25 In Process (Lasix Injection) 20:00 Strict I & O DEJUAN 11/01/25 In Process 08:02 Maintain Fluid [facility] 11/01/25 In Process Restrictions 08:02 * Cardiology Consult CONS 11/01/25 Transmitted 09:09 Mrsa Screen KARYN 11/01/25 Logged 09:10 LIVER US 11/01/25 Resulted 09:11 Platelet Monitoring [facility] 11/01/25 In Process 09:52 Vte Protocol Initiated [facility] 11/01/25 In Process 09:52 Heparin Per [facility] 11/01/25 In Process Standardized Proce 09:52 Discontinue All Im [facility] 11/01/25 In Process Injections 09:52 Heparin Drip/D5w PHA 11/01/25 In Process 100units/Ml 10:00 Urine Bacterial KARYN 11/01/25 In Process Culture 09:54 Consult Care CONS 11/01/25 Transmitted Coordinator Pantoprazole Tablet PHA 11/02/25 In Process (Protonix Tablet) 06:00 Levothyroxine Tablet PHA 11/02/25 In Process (Synthroid Tablet) 06:00 PTPTT LAB 11/01/25 Logged 18:15 Heparin Per Pharmacy [facility] 11/01/25 In Process Protocol 18:15 Complete Blood Count LAB 11/02/25 Verified 04:00 Comprehensive LAB 11/02/25 Verified Metabolic Panel 04:00 Magnesium LAB 11/02/25 Verified 04:00 Visit Coding STANDARD RES Billing Provider: SONAL REARDON MD Date of Service if different f: Nov 01, 2025 Common Visit Codes: 31253-[id number] INP/OBS CARE(HIGH) EUSEBIO MCKNIGHT RESIDENT Nov 01, 2025 16:42
[2025-11-01] MEDS: LACTULOSE 20Gm/30ML SOLN PO SCH (18:15)
[2025-11-01] MEDS: IPRATROPIUM BROM 0.5 MG/2.5ML INH SOL NEB SCH (18:16)
[2025-11-01] MEDS: ALBUTEROL SULF 2.5 MG/0.5ML(0.5%) NEB SOLN NEB SCH (18:17)
[2025-11-01 18:38] LABS: INR 1.25 (0.9-1.15); Partial Thromboplastin Time 27.3 SEC (24.5-34.5); Prothrombin Time 13.0 sec (9.3-11.8)
[2025-11-01] MEDS: HEPARIN SODIUM (PORCINE) 5000 UNITS/ML 1ML VIAL IV ONE (19:46)
[2025-11-01] MEDS: FUROSEMIDE 40 MG/4 ML VIAL IV SCH (20:00)
--- NOTE | 2025-11-01 20:12 | CONS ---
Pharmacy Clinical Information: HEPARIN RATE @16 ML/HR OR 1600 UNITS/HR SINCE APTT = 27.3 @1755 ON 11/01 PER RX PROTOCOL. HEPARIN 5000 UNITS ALREADY GIVEN AND NEXT APPT MARIA D @0100 ON 11/02 FITZ RN & KATIA RN (SHIFT CHANGE) AWARE INCREASED RATE FROM 13 ML/HR TO 16 ML/HR AND REPEATED ORDER BACK. SINCE BACK TO BACK LOW APTT, RNs CHECKED THE PUMP TO MAKE SURE RATE IS CORRECTLY SET. NICK NICOLE PHARMACIST Nov 01, 2025 20:12
[2025-11-01] MEDS: MUPIROCIN 2% OINT 15gm or 22gm FOR MRSA NARES EACHNOSTRI SCH (22:14)
[2025-11-01] MEDS: MORPHINE SULFATE 4 MG/ML SYR/VIAL IV ONE (22:14)
[2025-11-02] VITALS (8 sets, daily range): BP systolic 103–118; BP diastolic 64–78; PULSE 66–73; RESP 17–20; TEMP 97–97.7; O2SAT 95–100
[2025-11-02 02:34] LABS: Hematocrit 32.4 % (36.0-46.0); Hemoglobin 10.0 g/dL (12.2-16.2); Mean Corpuscular Hemoglobin 28.3 pg (28.0-32.0); Mean Corpuscular Volume 91.1 fL (80.0-100.0); Nucleated Red Blood Cells % 2.0 %
[2025-11-02 02:50] LABS: INR 1.31 (0.9-1.15); Partial Thromboplastin Time 38.0 SEC (24.5-34.5); Prothrombin Time 13.5 sec (9.3-11.8)
[2025-11-02 02:51] LABS: Alanine Aminotransferase 29 U/L (7-40); Anion Gap 10 (5-15); BUN/Creatinine Ratio 19.7 (10.0-20.0); Calcium 9.0 mg/dL (8.7-10.4); Carbon Dioxide 21 mmol/L (20-31); Chloride 103 mmol/L (98-107); Glucose 94 mg/dL (74-106); Magnesium 2.0 mg/dL (1.6-2.6); Potassium 4.9 mmol/L (3.5-5.1); Total Protein 7.3 g/dL (5.7-8.2)
[2025-11-02 02:52] LABS: Albumin 3.2 g/dL (3.2-4.8); Alkaline Phosphatase 205 U/L (46-116); Bilirubin, Total 1.3 mg/dL (0.2-1.0); Blood Urea Nitrogen 24 mg/dL (9-23); Sodium 134 mmol/L (136-145)
[2025-11-02] MEDS: HEPARIN DRIP/D5W 100UNITS/ML 250 ML IV SCH (03:03)
[2025-11-02] MEDS: MELATONIN 5 MG TAB PO ONE (03:11)
[2025-11-02] MEDS: LEVOTHYROXINE SODIUM 100 MCG TAB PO SCH (06:04)
[2025-11-02] MEDS: PANTOPRAZOLE 40 MG TAB PO SCH (06:04)
[2025-11-02] MEDS: ASPirin-EC 81 mg tab PO SCH (10:51)
[2025-11-02] MEDS: MUPIROCIN 2% OINT 15gm or 22gm FOR MRSA NARES EACHNOSTRI SCH (10:52)
[2025-11-02] MEDS: ACETAMINOPHEN 325 MG TAB PO PRN (10:56)
[2025-11-02] MEDS: LOSARTAN POTASSIUM 25 MG TAB PO ONE (10:56)
[2025-11-02 11:19] LABS: INR 1.28 (0.9-1.15); Prothrombin Time 13.2 sec (9.3-11.8)
[2025-11-02 11:21] LABS: Partial Thromboplastin Time > 139.0 SEC (24.5-34.5)
--- NOTE | 2025-11-02 12:07 | DVHDSRES ---
Discharge Summary Date of Admission Resident Creating Document: EUSEBIO MCKNIGHT RESIDENT Oct 31, 2025 at 19:05 Date of Discharge: Nov 02, 2025 Admitting Diagnosis Acute hypoxic respiratory failure/acute on chronic heart failure Labs/Diagnostic Data: Laboratory Results Test 11/02/25 09:54 11/02/25 01:47 11/01/25 09:10 11/01/25 08:28 Prothrombin Time 13.2 sec (9.3-11.8) Prothrombin Time INR 1.28 (0.9-1.15) Activated Partial Thromboplast Time > 139.0 SEC (24.5-34.5) White Blood Count 6.1 10^3/uL (4.4-10.8) Red Blood Count 3.55 10^6/uL (4.0-5.20) Hemoglobin 10.0 g/dL (12.2-16.2) Hematocrit 32.4 % (36.0-46.0) Mean Corpuscular Volume 91.1 fL (80.0-100.0) Mean Corpuscular Hemoglobin 28.3 pg (28.0-32.0) Mean Corpuscular Hemoglobin Concent 31.1 g/dL (32.0-36.0) Red Cell Distribution Width 21.1 % (11.8-14.3) Platelet Count 212 10^3/uL (140-450) Mean Platelet Volume 8.9 fL (6.9-10.8) Neutrophils (%) (Auto) 65.4 % (37.0-80.0) Lymphocytes (%) (Auto) 21.3 % (10.0-50.0) Monocytes (%) (Auto) 7.4 % (0.0-12.0) Eosinophils (%) (Auto) 4.4 % (0.0-7.0) Basophils (%) (Auto) 1.5 % (0.0-2.0) Neutrophils # (Auto) 4.0 10 ^3/uL (1.6-8.6) Lymphocytes # (Auto) 1.3 10 ^3/uL (0.4-5.4) Monocytes # (Auto) 0.5 10 ^3/uL (0-1.3) Eosinophils # (Auto) 0.3 10 ^3/uL (0-0.8) Basophils # (Auto) 0.1 10 ^3/uL (0-0.2) Nucleated Red Blood Cells 2.0 % Sodium Level 134 mmol/L (136-145) Potassium Level 4.9 mmol/L (3.5-5.1) Chloride Level 103 mmol/L (98-107) Carbon Dioxide Level 21 mmol/L (20-31) Anion Gap 10 (5-15) Blood Urea Nitrogen 24 mg/dL (9-23) Creatinine 1.22 mg/dL (0.550-1.02) Glomerular Filtration Rate Calc 57 mL/min (>90) BUN/Creatinine Ratio 19.7 (10.0-20.0) Serum Glucose 94 mg/dL (74-106) Calcium Level 9.0 mg/dL (8.7-10.4) Magnesium Level 2.0 mg/dL (1.6-2.6) Total Bilirubin 1.3 mg/dL (0.2-1.0) Aspartate Amino Transferase (AST) 46 U/L (13-40) Alanine Aminotransferase (ALT) 29 U/L (7-40) Alkaline Phosphatase 205 U/L (46-116) B-Type Natriuretic Peptide 2929.34 pg/mL (0-100) Total Protein 7.3 g/dL (5.7-8.2) Albumin 3.2 g/dL (3.2-4.8) Thyroid Stimulating Hormone (TSH) 14.26 uIU/mL (0.55-4.78) Urine Opiates Screen Neg (NEGATIVE) Urine Fentanyl Screen Neg (NEGATIVE) Urine Barbiturates Screen Neg (NEGATIVE) Urine Phencyclidine Screen Neg (NEGATIVE) Urine Amphetamines Screen Neg (NEGATIVE) Urine Benzodiazepines Screen Neg (NEGATIVE) Urine Cocaine Screen Neg (NEGATIVE) Urine Cannabinoids Screen Neg (NEGATIVE) Hemoglobin A1c 5.8 % A1C (<5.7) Vitamin B12 Level 976 pg/mL (211-911) Vitamin D 25-Hydroxy 51.5 ng/mL (30.0-100) Folic Acid 12.34 ng/mL (>5.38) Free Thyroxine (T4) Calculated 1.09 ng/dL (0.89-1.76) Free Triiodothyronine (T3) pg/mL 2.93 pg/mL (2.3-4.2) Plasma/Serum Blood Alcohol < 3.0 mg/dL (<10) Hepatitis A IgM Antibody Negative Hepatitis B Surface Antigen Negative (Negative) Hepatitis B Core IgM Antibody Negative (Negative) Hepatitis C Antibody Negative (Negative) Test 10/31/25 18:55 10/31/25 16:42 10/31/25 16:39 Troponin I High Sensitivity 24 ng/L (</=34) Urine Color Yellow (Yellow) Urine Clarity Clear (Clear) Urine pH 6.0 (5.0-9.0) Urine Specific [place] 1.022 (1.001-1.035) Urine Protein 1+ (Negative) Urine Ketones Trace (Negative) Urine Blood Negative /uL (Negative) Urine Nitrite Negative (Negative) Urine Bilirubin Negative (Negative) Urine Urobilinogen 3 mg/dL (Negative) Urine Leukocyte Esterase 1+ /uL (Negative) Urine RBC <1 /hpf (0 - 4) Urine Microscopic WBC 6 /HPF (0-5) Urine Squamous Epithelial Cells Few /hpf (<5) Urine Bacteria None seen /hpf (None Seen) Urine Glucose Normal mg/dL (Normal) POC Glucose 73 mg/dl (70-106) Other Laboratory Tests 11/02/25 01:47 Brief Hx & Hospital Course: Patient is 40 years old female with a past medical history of HFrEF, EF 10%, history of left ventricular thrombus on Eliquis, CAD, hyperlipidemia, hypertension, CKD, Cirrhosis with sequelae of portal venous hypertension, Cholelithiasis, anxiety with a complaint of shortness of breaths. As per patient she has been having shortness of breaths Functional Class III for last 2 days, PND, orthopnea, abdominal swelling and palpitation. She also endorsed some chest pain in the left side, intermittent, 8/10, increased with breathing, pressure-like. As per patient she gets shortness of breaths when she goes to the restroom. On further inquiry patient also endorsed bilateral leg swelling. Patient denied any fever, cough, diarrhea, acute joint redness, dysarthria or change in vision. Initial EKG no acute ST-T wave changes, lab workup revealed serum creatinine 1.08, GFR> 66, BNP> 5000, serum bilirubin 1.5, AST 49, urinalysis leukocyte esterase 1+, WBC 6, protein 1+, TSH 23, chest x-ray cardiomegaly, mild pulmonary congestion, UDS negative, patient's previous echo on 10/18/2025 LVEF 10%, biatrial and biventricular enlargement,RVSP 33, RV function 40%, moderate mitral insufficiency, severe tricuspid regurgitation, moderate pulmonary insufficiency, small pericardial effusion. Ultrasound of the liver- Enlarged echogenic liver, Gallstones and sludge.Gallbladder wall is mildly thickened measuring 6 mm, clinical correlation recommended.Ascites.Small left pleural effusion Hospital course-patient was treated conservatively for acute hypoxic respiratory failure along with the acute on chronic heart failure. Patient's symptoms improved. Patient was found to have a hypothyroidism, started on levothyroxine. Patient's symptoms improved. Patient is seen by Cardiology. Patient had gallstone with sludge, no acute symptoms, patient was advised to follow up with surgery outpatient. Patient was advised to follow up with DC clinic/PCP/Cardiology/outpatient surgery. All questions were answered. Patient was hemodynamically stable on discharge. General examination- awake, alert HEENT- PEERLA, no acute nasal discharge Cardiovascular- S1-S2 audible, rate and rhythm regular, no murmur Respiratory- C lung crackles+ Gastrointestinal-nontender, bowel sound+. Distended abdomen Musculoskeletal-no acute joint swelling or tenderness or redness Lower extremity- bilateral leg edema Neurological- cranial nerves intact, no acute dysarthria or dysphagia Psychiatry- denies depression or SI or HI Skin- no acute rash or purpura # acute hypoxic respiratory failure likely due to acute pulmonary edema # acute on chronic heart failure likely due to HFrEF # anasarca # suspected pulmonary hypertension # history of LV thrombus # bilateral leg swelling likely due to above # severe MR/severe TR #Small left pleural effusion # acute chest pain, rule out acute coronary syndrome # cirrhosis of liver with sequelae # history of coronary artery disease # hypertension # suspected cardiorenal syndrome # history of CKD # anxiety # prediabetes # hypothyroidism Gallstone and sludge asymptomatic Plan Resume home medication Continue levothyroxine as prescribed Follow up with the PCP for checking on thyroid function test with TSH Follow up with the Cardiology Follow up outpatient surgery Follow up at his clinic Fluid restriction 1200 mL/24 over Counseled about the effect of substance abuse on health Operations or Procedures [address] [address] Ph: [phone] DIAGNOSTIC IMAGING Diagnostic Imaging Report : [id number] Signed PATIENT: MARY BROWN ACCT: [id number] UNIT: [id number] : 1985 LOC: [facility] / BED: [facility] / A AGE / SEX: 40 / F ADM STATUS: ADM IN SERVICE 0911 ORDERING PHYSICIAN: EUSEBIO MCKNIGHT PROCEDURE(s): LIVUS - LIVER REASON: cirrhosis ORDER NUMBER(s): [id number], ACCESSION NUMBER(s): [id number] ULTRASOUND DOPPLER CLINICAL HISTORY: cirrhosis TECHNIQUE: Doppler examination of the abdomen was performed. COMPARISON: US GALLBLADDER on DOS: 10/18/25, US ABDOMEN COMPLETE SONOGRAM on DOS: 10/17/25 FINDINGS: The liver is slightly enlarged measuring 20 cm and is heterogeneous in echotexture. There is bidirectional flow seen in the main portal vein. Gallbladder contains stones and sludge. Gallbladder wall is mildly thickened measuring 6 mm. Common bile duct is 3.9 mm. There is no sonographic Augustin's sign. Right kidney is 11.6 cm and is increased in echogenicity. Mild free fluid is seen. There is a small left pleural effusion 1. No portal vein thrombosis. 2. Enlarged echogenic liver 3. Gallstones and sludge. 4. Gallbladder wall is mildly thickened measuring 6 mm, clinical correlation recommended. 5. Ascites. 6. Small left pleural effusion ATED BY: JACQUE KENNEDY MD DICTATED DATE/TIME: 11/01/25 1029 SIGNED BY: JACQUE KENNEDY MD SIGNED DATE/TIME: 11/01/25 1029 CC: [place] [id number] Ph: [phone] DIAGNOSTIC IMAGING Diagnostic Imaging Report : [id number] Signed PATIENT: MARY BROWN ACCT: [id number] UNIT: [id number] : 1985 LOC: [facility] ROOM / BED: [facility] / A AGE / SEX: 40 / F ADM STATUS: ADM IN SERVICE 0911 ORDERING PHYSICIAN: EUSEBIO MCKNIGHT PROCEDURE(s): LIVUS - LIVER REASON: cirrhosis ORDER NUMBER(s): [id number], ACCESSION NUMBER(s): [id number] ULTRASOUND DOPPLER CLINICAL HISTORY: cirrhosis TECHNIQUE: Doppler examination of the abdomen was performed. COMPARISON: US GALLBLADDER on DOS: 10/18/25, US ABDOMEN COMPLETE SONOGRAM on DOS: 10/17/25 FINDINGS: The liver is slightly enlarged measuring 20 cm and is heterogeneous in echotexture. There is bidirectional flow seen in the main portal vein. Gallbladder contains stones and sludge. Gallbladder wall is mildly thickened measuring 6 mm. Common bile duct is 3.9 mm. There is no sonographic Augustin's sign. Right kidney is 11.6 cm and is increased in echogenicity. Mild free fluid is seen. There is a small left pleural effusion 1. No portal vein thrombosis. 2. Enlarged echogenic liver 3. Gallstones and sludge. 4. Gallbladder wall is mildly thickened measuring 6 mm, clinical correlation recommended. 5. Ascites. 6. Small left pleural effusion ATED BY: JACQUE KENNEDY MD DICTATED DATE/TIME: 11/01/25 1029 SIGNED BY: JACQUE KENNEDY MD SIGNED DATE/TIME: 11/01/25 1029 CC: Condition at Discharge: Stable Final Diagnosis/Problems List # acute hypoxic respiratory failure likely due to acute pulmonary edema # acute on chronic heart failure likely due to HFrEF # anasarca # suspected pulmonary hypertension # history of LV thrombus # bilateral leg swelling likely due to above # severe MR/severe TR #Small left pleural effusion # acute chest pain, rule out acute coronary syndrome # cirrhosis of liver with sequelae # history of coronary artery disease # hypertension # suspected cardiorenal syndrome # history of CKD # anxiety # prediabetes # hypothyroidism Gallstone and sludge asymptomatic Discharge Disposition: Home Discharge Instruct/Medications Diet: Consistent carbohydrate, Cardiac 2g Na,low cholest, Renal Activity: Light activity Follow Up/Referral: DC clinic PCP Cardiology Surgery outpatient follow up for gallstone/ Medications: As above Scheduled Apixaban Base (Eliquis), 5 MG PO BID Aspirin (Aspir-81), 1 TAB PO DAILY, (Reported) Carvedilol (Coreg), 12.5 MG PO Q12HR Empagliflozin (Jardiance), 10 MG PO DAILY Losartan Potassium (Losartan Potassium), 0.5 TAB PO DAILY Mupirocin Calcium (Topical) (Mupirocin), 2 % EX BID Pantoprazole Sodium Sesquihydr (Pantoprazole Sodium), 40 MG PO DAILY Spironolactone (Spironolactone), 1 TAB PO DAILY Miscellaneous Medications Furosemide (Lasix), 40 MG PO, (Reported) Discharge Statement: "Patient was advised to return to the ER or call 911 if any headaches, dizziness, shortness of breath, chest pain, abdominal pain, bleeding, fevers, or worsening of medical condition. Patient was counseled about treatment plan, medications, possible side effects, patientverbalized understanding. All questions were answered to the best of my ability. This discharge took greater then 30 minutes in planning, reviewing documentation, counseling the patient, and discussing with other team members." ASSESSMENT ASSESSMENT Assessment Acute hypoxic respiratory failure due to acute pulmonary edema Acute on chronic heart failure due to HFrEF Pulmonary hypertension Visit Coding STANDARD RES Billing Provider: SONAL REARDON MD Date of Service if different f: Nov 02, 2025 Common Visit Codes: 23932-MDZ/OBS DISCH DAY >30min EUSEBIO MCKNIGHT RESIDENT Nov 02, 2025 12:07
--- NOTE | 2025-11-02 12:09 | CONS ---
Pharmacy Clinical Information: HOLD HEPARIN INFUSION FOR 1 HOUR (FROM 1205 TO 1305) SINCE APTT > 139 @0954 ON 11/02 PER RX PROTOCOL. NEW HEPARIN RATE @15 ML/HR OR 1500 UNITS/HR RESUME @1305 ON 11/02 AND NEXT APTT MARIA D 6 HOURS FROM RESTARTING HEPARIN DRIP. KE ADAMS AWARE HEPARIN DRIP DECREASED FROM 18 ML/HR TO 15 ML/HR AND REPEATED ORDER BACK. NICK NICOLE PHARMACIST Nov 02, 2025 12:09
--- NOTE | 2025-11-02 12:27 | DVHINCON2 ---
Date Seen: Nov 02, [address] Mcknight Reason for Consultation CHF History of Present Illness 1-year-old female who presented to the hospital with a chief complaint of worsening shortness of breath. Patient has a history of heart failure with severely reduced ejection fraction, LVEF 10%, CKD, liver cirrhosis, LV thrombus, methamphetamine use and was recently seen in the hospital with a similar complaint of worsening shortness of breath. This time patient did not complain of any chest pain. She reports not being compliant with the medications. Twelve lead EKG showed sinus rhythm without any acute ST or T-wave changes. Past Medical History As per HPI Past Surgical History Denies Family History: Diabetes mellitus G8 MOTHER FH: CHF (congestive heart failure) G8 FATHER Hypertension G8 MOTHER Family History Noncontributory Social History Previous methamphetamine user, reports to quit about 3 weeks ago Denies smoking, alcohol use Allergies: Coded Allergies: NO KNOWN ALLERGIES (Unverified , 01/18/25) Home Meds Active Scripts Mupirocin Calcium (Topical) (MUPIROCIN) 2 % Cre, 2 % EX BID for 14 Days, #2 CRE Prov:EUSEBIO MCKNIGHT [facility] 11/02/25 Pantoprazole Sodium Sesquihydr (Pantoprazole Sodium) 40 Mg Tab, 40 MG PO DAILY for 30 Days, #30 TAB Prov:EUSEBIO MCKNIGHT [facility] 11/02/25 Spironolactone (Spironolactone) 25 Mg Tab, 1 TAB PO DAILY for 30 Days, #30 TAB 1 Refill [facility] 11/02/25 Losartan Potassium (Losartan Potassium) 50 Mg Tab, 0.5 TAB PO DAILY for 30 Days, #15 TAB 1 [facility] 11/02/25 Empagliflozin (Jardiance) 10 Mg Tab, 10 MG PO DAILY for 30 Days, #30 TAB Prov:KENYA DE LA FUENTE 10/20/25 Carvedilol (COREG) 12.5 Mg Tab, 12.5 MG PO Q12HR for 30 Days, #60 TAB Prov:AGUSTIN LE MD 01/25/25 Apixaban Base (ELIQUIS) 5 Mg Tab, 5 MG PO BID for 30 Days, #60 TAB Prov:AGUSTIN LE MD 01/25/25 Reported Medications Aspirin (Aspir-81) 81 Mg Tab, 1 TAB PO DAILY, #30 TAB 5 Refills 01/19/25 Furosemide (Lasix) 40 Mg Tab, 40 MG PO, TAB 01/19/25 Current Medications Current Medications Medications (Trade) Dose Ordered Sig/Hernán Route PRN Reason Start Time Stop Time Status Last Admin Furosemide (Lasix Injection) 40 mg BIDD IV 11/01/25 20:00 11/02/25 06:04 Aspirin (Ecotrin Enteric Coated Tablet) 81 mg DAILY PO 11/02/25 10:00 11/02/25 10:51 Pantoprazole Sodium (Protonix Tablet) 40 mg DAILY@0600 PO 11/02/25 06:00 11/02/25 06:04 Levothyroxine Sodium (Synthroid Tablet) 100 mcg QAM@0600 PO 11/02/25 06:00 11/02/25 06:04 Albuterol (Ventolin Medneb) 2.5 mg Q6HR NEB 11/01/25 18:00 11/02/25 00:29 Ipratropium Bowler (Atrovent Medneb) 0.5 mg Q6HR NEB 11/01/25 18:00 11/02/25 00:29 Mupirocin (Bactroban 2% Ointment) 1 applic BID EACHNOSTRI 11/01/25 22:00 11/02/25 10:04 DC 11/01/25 22:14 Lactulose 30 ml BID PO 11/01/25 18:15 11/02/25 10:50 Heparin Sodium/ Dextrose 250 ml @ 16 mls/hr [id number] IV 11/01/25 19:00 11/02/25 02:58 DC 11/01/25 19:00 Heparin Sodium/ Dextrose 250 ml @ 18 mls/hr [id number] IV 11/02/25 03:00 11/02/25 12:05 DC 11/02/25 03:03 Losartan Potassium (Cozaar Tablet) 25 mg DAILY PO 11/03/25 10:00 Mupirocin (Bactroban 2% Ointment) 1 applic BID EACHNOSTRI 11/02/25 10:00 11/07/25 09:59 11/02/25 10:52 Heparin Sodium/ Dextrose 250 ml @ 15 mls/hr [id number] IV 11/02/25 13:10 Review of Systems Patient reported feeling better and shortness of breath has improved since she has been in the hospital Chest pain, no headache, no nausea or vomiting Vital Signs Vital Signs Date Time Temp Pulse Resp B/P (MAP) Pulse Ox O2 Delivery O2 Flow Rate FiO2 11/02/25 10:56 118/64 11/02/25 10:51 73 11/02/25 09:00 97.0 20 95 97.0 11/02/25 00:29 Room Air 0.0 11/02/25 00:29 21 Physical Exam Skin - Patients skin is warm and dry. HEENT - normocephalic, atraumatic, moist mucous membranes, no scleral icterus, no conjunctival pallor. Neck - full ROM, no LAD, JVP elevated with a positive hepatojugular reflux Pulmonary - B/L clear breath sounds with a minimal basilar rales cardiovascular - regular S1,S2 heard. Probable S3 peripheral pulses normal radial 2+, pedal 2+. GI - soft, nontender abdomen. no hepatospleenomegaly. Bowel sounds normoactive Neurological - Patient is A/O X 4 . Bilateral upper extremity strength 5/5, bilateral lower extremity strength 5/5, no facial droop, normal speech, no tremor, no sensory deficiets. Labs/Diagnostic Data Labs Test 11/02/25 09:54 11/02/25 01:47 11/01/25 09:10 11/01/25 08:28 Range/Units Prothrombin Time 13.2 H 9.3-11.8 sec Prothrombin Time INR 1.28 H 0.9-1.15 Activated Partial Thromboplast Time > 139.0 *H 24.5-34.5 SEC White Blood Count 6.1 4.4-10.8 10^3/uL Red Blood Count 3.55 L 4.0-5.20 10^6/uL Hemoglobin 10.0 L 12.2-16.2 g/dL Hematocrit 32.4 L 36.0-46.0 % Mean Corpuscular Volume 91.1 80.0-100.0 fL Mean Corpuscular Hemoglobin 28.3 28.0-32.0 pg Mean Corpuscular Hemoglobin Concent 31.1 L 32.0-36.0 g/dL Red Cell Distribution Width 21.1 H 11.8-14.3 % Platelet Count 212 140-450 10^3/uL Mean Platelet Volume 8.9 6.9-10.8 fL Neutrophils (%) (Auto) 65.4 37.0-80.0 % Lymphocytes (%) (Auto) 21.3 10.0-50.0 % Monocytes (%) (Auto) 7.4 0.0-12.0 % Eosinophils (%) (Auto) 4.4 0.0-7.0 % Basophils (%) (Auto) 1.5 0.0-2.0 % Neutrophils # (Auto) 4.0 1.6-8.6 10 ^3/uL Lymphocytes # (Auto) 1.3 0.4-5.4 10 ^3/uL Monocytes # (Auto) 0.5 0-1.3 10 ^3/uL Eosinophils # (Auto) 0.3 0-0.8 10 ^3/uL Basophils # (Auto) 0.1 0-0.2 10 ^3/uL Nucleated Red Blood Cells 2.0 % Sodium Level 134 L 136-145 mmol/L Potassium Level 4.9 3.5-5.1 mmol/L Chloride Level 103 98-107 mmol/L Carbon Dioxide Level 21 20-31 mmol/L Anion Gap 10 5-15 Blood Urea Nitrogen 24 H 9-23 mg/dL Creatinine 1.22 H 0.550-1.02 mg/dL Glomerular Filtration Rate Calc 57 >90 mL/min BUN/Creatinine Ratio 19.7 10.0-20.0 Serum Glucose 94 74-106 mg/dL Calcium Level 9.0 8.7-10.4 mg/dL Magnesium Level 2.0 1.6-2.6 mg/dL Total Bilirubin 1.3 H 0.2-1.0 mg/dL Aspartate Amino Transferase (AST) 46 H 13-40 U/L Alanine Aminotransferase (ALT) 29 7-40 U/L Alkaline Phosphatase 205 H 46-116 U/L B-Type Natriuretic Peptide 2929.34 0-100 pg/mL Total Protein 7.3 5.7-8.2 g/dL Albumin 3.2 3.2-4.8 g/dL Thyroid Stimulating Hormone (TSH) 14.26 H 0.55-4.78 uIU/mL Urine Opiates Screen Neg NEGATIVE Urine Fentanyl Screen Neg NEGATIVE Urine Barbiturates Screen Neg NEGATIVE Urine Phencyclidine Screen Neg NEGATIVE Urine Amphetamines Screen Neg NEGATIVE Urine Benzodiazepines Screen Neg NEGATIVE Urine Cocaine Screen Neg NEGATIVE Urine Cannabinoids Screen Neg NEGATIVE Hemoglobin A1c 5.8 H <5.7 % A1C Vitamin B12 Level 976 H 211-911 pg/mL Vitamin D 25-Hydroxy 51.5 30.0-100 ng/mL Folic Acid 12.34 >5.38 ng/mL Free Thyroxine (T4) Calculated 1.09 0.89-1.76 ng/dL Free Triiodothyronine (T3) pg/mL 2.93 2.3-4.2 pg/mL Plasma/Serum Blood Alcohol < 3.0 <10 mg/dL Hepatitis A IgM Antibody Negative Hepatitis B Surface Antigen Negative Negative Hepatitis B Core IgM Antibody Negative Negative Hepatitis C Antibody Negative Negative Test 10/31/25 18:55 10/31/25 16:42 10/31/25 16:39 Range/Units Troponin I High Sensitivity 24 </=34 ng/L Urine Color Yellow Yellow Urine Clarity Clear Clear Urine pH 6.0 5.0-9.0 Urine Specific [place] 1.022 1.001-1.035 Urine Protein 1+ H Negative Urine Ketones Trace Negative Urine Blood Negative Negative /uL Urine Nitrite Negative Negative Urine Bilirubin Negative Negative Urine Urobilinogen 3 H Negative mg/dL Urine Leukocyte Esterase 1+ Negative /uL Urine RBC <1 0 - 4 /hpf Urine Microscopic WBC 6 H 0-5 /HPF Urine Squamous Epithelial Cells Few <5 /hpf Urine Bacteria None seen None Seen /hpf Urine Glucose Normal Normal mg/dL POC Glucose 73 70-106 mg/dl Microbiology Date/Time Source Procedure Growth Status 11/01/25 09:10 Voided Urine Urine Culture - Preliminary Resulted 10/31/25 20:41 Nose MRSA Screen - Final Methicillin Resistant S.aureus Complete Assessment Acute on chronic heart failure with reduced ejection fraction Dilated cardiomyopathy Hypertensive heart disease History of LV thrombus Severe mitral and tricuspid regurgitation CKD Pulmonary hypertension Liver cirrhosis History of methamphetamine use Medication noncompliance Plan/Recommendation - echo from 10/18/2025 showed LVEF less than 10%, RV function about 40%, moderate mitral and severe tricuspid insufficiency, moderate pulmonic insufficiency - diuresis for euvolemia - advised patient strict adherence to guideline directed medical therapy with Entresto/ARB, Jardiance, spironolactone, carvedilol - continue on Eliquis, history of LV thrombus no further inpatient cardiac workup needed. Follow up in the outpatient clinic. Goals of care discussed with the patient for over 16 minutes. Plan discussed with Dr. Li Plan discussed with: Patient NYHA Physical activity limitations: Class2(Slight)fatigue,sob Date of Service: Nov 02, 2025 Billing Provider: HOWIE LI Sr., MD Cardiology Common Codes: 32114-[id number] INP/OBS CARE (High) SARABJIT CHURCH RESIDENT Nov 02, 2025 12:27
[2025-11-02] MEDS ORDERED: PANT40T PO (12:37)
[2025-11-02] MEDS ORDERED: SPIR25TA8 PO (12:37)
[2025-11-02] MEDS ORDERED: LOSA-534 PO (12:37)
[2025-11-02] MEDS ORDERED: MUPI2CRE17 EX (12:39)
[2025-11-02] MEDS ORDERED: HEPARIN DRIP/D5W 100UNITS/ML 250 ML IV SCH (13:10)
[2025-11-03] MEDS ORDERED: LOSARTAN POTASSIUM 25 MG TAB PO SCH (10:00)
== END 2025-11-02 14:53 | disposition home or self-care (01) | DRG 133 ==
LOC: ER 15:22 → EDBD 15:22 → OVERFLOW 19:05 → WEST WING 21:11
PROVIDERS: ADMIT Student in an Organized Health Care Education/Training Program; ATTEND Student in an Organized Health Care Education/Training Program
DX: J96.21 Acute and chronic respiratory failure with hypoxia (principal); I50.43 Acute on chronic combined systolic (congestive) and diastolic (congestive) heart failure; I24.9 Acute ischemic heart disease, unspecified; I27.20 Pulmonary hypertension, unspecified; Z79.01 Long term (current) use of anticoagulants; I13.0 Hypertensive heart and chronic kidney disease with heart failure and stage 1 through stage 4 chronic kidney disease, or unspecified chronic kidney disease; N18.9 Chronic kidney disease, unspecified; K74.60 Unspecified cirrhosis of liver; E03.9 Hypothyroidism, unspecified; I08.1 Rheumatic disorders of both mitral and tricuspid valves; Z98.891 History of uterine scar from previous surgery; R73.03 Prediabetes; E78.5 Hyperlipidemia, unspecified; F41.9 Anxiety disorder, unspecified; E87.5 Hyperkalemia; I42.0 Dilated cardiomyopathy; I25.10 Atherosclerotic heart disease of native coronary artery without angina pectoris; K82.8 Other specified diseases of gallbladder; I25.2 Old myocardial infarction; Z83.3 Family history of diabetes mellitus; Z82.49 Family history of ischemic heart disease and other diseases of the circulatory system; Z91.148 Patient's other noncompliance with medication regimen for other reason
CPT/HCPCS: 36415; 71045; 76705; 80048; 80053; 80074; 80307; 80320; 81001; 82306; 82607; 82746; 82962; 83036; 83735; 83880; 84439; 84443; 84481; 84484; 85025; 85610; 85730; 87040; 87081; 87086; 93005; 94640; 96365; 99291; G0378; J2405